=== PATIENT | female | born 1960 | race Asian ===

== ENCOUNTER 2018-10-26 13:04 | Emergency (ER) | payer OTHER, SELFPAY ==
[2018-10-26 13:10] VITALS: BP 146/86; PULSE 72; RESP 19; TEMP 36.2; O2SAT 97; BMI 28.2
--- NOTE | 2018-10-26 13:18 | ED.CHESTPAIN ---
HPI - Chest Pain <BRAD Dave - Last Filed: 10/26/18 21:19> General Chief Complaint: Chest Pain Stated Complaint: CHEST HEAVINESS,ASTHMA Time Seen by Provider: 10/26/18 13:08 Source: patient Mode of arrival: ambulatory Limitations: no limitations History of Present Illness HPI narrative: 58-year-old female with history of asthma that is a nonsmoker here for complaint of having increased wheeziness and chest pressure over the past week. She says that she has had a cough and cold-like symptoms over the past week. She has been using her albuterol and Advair as directed. She has been using nebulizer treatments at home as well to treat her symptoms. She denies any chest pain. No nausea vomiting. No fevers. She denies any other concerns or complaints. She is ambulatory into the emergency room. complaint: other Related Data Home Medications Medication Instructions Recorded Confirmed losartan 100 mg PO DAILY #0 10/27/17 10/26/18 albuterol sulfate [ProAir HFA] 1 puff INHALATION PRN PRN 10/26/18 10/26/18 chlorthalidone 25 mg PO DAILY 10/26/18 10/26/18 fluticasone 1 spray INTRANASAL PRN PRN 10/26/18 10/26/18 fluticasone-salmeterol [Advair 1 puff INHALATION BID 10/26/18 10/26/18 Diskus] montelukast 10 mg PO DAILY 10/26/18 10/26/18 Previous Rx's Medication Instructions Recorded albuterol sulfate 3 ml INH Q6HP PRN #25 ea 02/11/18 prednisone 40 mg PO DAILY #8 tab 10/26/18 Allergies Allergy/AdvReac Type Severity Reaction Status Date / Time aspirin [ASPIRIN] Allergy Unknown MAKES HER Verified 10/26/18 13:20 BLEED NSAIDS (Non-Steroidal Allergy Unknown Verified 10/26/18 13:20 Anti-Inflamma [NSAIDS (NON-STEROIDAL ANTI-INFLAMMA] Review of Systems <BRAD Dave - Last Filed: 10/26/18 21:19> Constitutional Denies chills, Denies fever(s), Denies lethargy and Denies weakness Eyes Denies change in vision, Denies eye discharge, Denies irritation and Denies loss of vision ENT Ears, Nose, Mouth, and Throat: Reports nasal discharge and Denies throat swelling Cardiovascular Denies chest pain, Denies irregular heart rhythm, Denies lightheadedness, Denies palpitations and Denies orthopnea Comments: Chest pressure Respiratory Reports cough and Denies wheezing Gastrointestinal Gastrointestinal: Denies abdominal pain, Denies change in bowel habits, Denies diarrhea, Denies nausea and Denies vomiting Genitourinary Denies hematuria, Denies flank pain, Denies urinary incontinence and Denies urinary urgency Musculoskeletal Denies back pain, Denies muscle weakness, Denies numbness and Denies tingling Integumentary/Breasts Denies pruritus, Denies erythema, Denies rash and Denies wounds Neurologic Denies confusion, Denies loss of vision, Denies numbness, Denies tingling and Denies weakness Psychiatric Denies anxiety, Denies confusion, Denies depression, Denies homicidal ideation and Denies suicidal ideation Endocrine Denies palpitations Hematologic/Lymphatic Denies easy bruising Allergic/Immunologic Denies urticaria, Denies throat swelling and Denies wheezing Exam <BRAD Dave - Last Filed: 10/26/18 21:19> Initial Vital Signs Initial Vital Signs: Vital Signs Temperature 97.2 F L 10/26/18 13:10 Pulse Rate 72 10/26/18 13:10 Respiratory Rate 19 10/26/18 13:10 Blood Pressure 146/86 H 10/26/18 13:10 Pulse Oximetry 97 10/26/18 13:10 Const General: cooperative and well developed Nutritional Appearance: well nourished Orientation: alert, awake, oriented x3 and not confused HENME Mouth: oral mucosae normal and moist mucous membranes Eyes Conjunctivae: conjunctivae normal Sclera: sclerae normal Pupils: PERRL EOM: EOM intact bilaterally Resp Effort & Inspection: normal respiratory effort, able to speak in complete sentences, no respiratory distress and no use of accessory muscles Auscultation: no rales, no rhonchi and wheezes upper bilaterally Cardio Rate: regular rate Rhythm: regular rhythm Heart Sounds: no click, no gallops, no murmurs and no rubs Pulses: normal peripheral pulses Skin General: no rashes or lesions noted, No jaundice and No petechiae Neuro General: alert, oriented x3, gait normal and no focal motor deficits Speech: speech normal <Stephanie Martin DO - Last Filed: 10/29/18 07:26> Initial Vital Signs Initial Vital Signs: Vital Signs Temperature 97.2 F L 10/26/18 13:10 Pulse Rate 72 10/26/18 13:10 Respiratory Rate 19 10/26/18 13:10 Blood Pressure 146/86 H 10/26/18 13:10 Pulse Oximetry 97 10/26/18 13:10 Course <BRAD Dave - Last Filed: 10/26/18 21:19> Orders Ordered: Discontinued Medications Albuterol/Ipratropium (Duoneb) 3 ml INH NOW ONE Stop: 10/26/18 13:23 Last Admin: 10/26/18 13:24 Dose: 3 ml Dexamethasone (Decadron) 10 mg IV NOW ONE Stop: 10/26/18 13:21 Last Admin: 10/26/18 14:16 Dose: 10 mg Vital Signs - 8 hr 10/26/18 13:20 10/26/18 13:49 10/26/18 14:00 Pulse Rate 70 72 66 Respiratory Rate 20 17 14 Blood Pressure [Left Arm] 143/66 H 113/64 Pulse Oximetry 97 95 98 10/26/18 14:30 10/26/18 15:03 Pulse Rate 69 65 Respiratory Rate 20 15 Blood Pressure [Left Arm] 113/64 119/67 Pulse Oximetry 97 98 <Stephanie Martin DO - Last Filed: 10/29/18 07:26> Orders Ordered: Discontinued Medications Albuterol/Ipratropium (Duoneb) 3 ml INH NOW ONE Stop: 10/26/18 13:23 Last Admin: 10/26/18 13:24 Dose: 3 ml Dexamethasone (Decadron) 10 mg IV NOW ONE Stop: 10/26/18 13:21 Last Admin: 10/26/18 14:16 Dose: 10 mg Vital Signs - 8 hr 10/26/18 13:20 10/26/18 13:49 10/26/18 14:00 Pulse Rate 70 72 66 Respiratory Rate 20 17 14 Blood Pressure [Left Arm] 143/66 H 113/64 Pulse Oximetry 97 95 98 10/26/18 14:30 10/26/18 15:03 Pulse Rate 69 65 Respiratory Rate 20 15 Blood Pressure [Left Arm] 113/64 119/67 Pulse Oximetry 97 98 MDM - Chest Pain <BRAD Dave - Last Filed: 10/26/18 21:19> Lab Data Result diagrams: 10/26/18 14:00 10/26/18 14:00 Lab Results 10/26/18 10/26/18 Range/Units 14:00 14:00 WBC 10.4 (4.5-11.0) X10^3/uL RBC 4.90 (4.0-5.2) X10^6/uL Hgb 13.8 (12.0-16.0) g/dL Hct 40.3 (36-46) % MCV 82.4 (80-100) fL MCH 28.2 (26-34) PG MCHC 34.2 (30-36) % RDW 13.5 (11.6-14.8) % Plt Count 285 (150-400) X10^3/uL Neut % (Auto) 58.9 (50-75) % Lymph % (Auto) 28.0 (25-40) % Gilliam % (Auto) 5.2 (3-14) % Eos % (Auto) 7.1 H (2-4) % Baso % (Auto) 0.8 (0-2) % Neut # (Auto) 6100 (9495-4725) /uL Sodium 144 (137-145) mmol/L Potassium 3.1 L (3.4-5.1) mmol/L Chloride 102 (98-107) mmol/L Carbon Dioxide 26 (22-32) mmol/L BUN 16 (7-17) mg/dL Creatinine 0.70 (0.52-1.04) mg/dL Estimated GFR > 60.0 (>60) mL/min BUN/Creatinine Ratio 22.9 H (6-22) Glucose 89 (70-100) mg/dL Calcium 9.5 (8.4-10.2) mg/dL Total Bilirubin 0.4 (0.2-1.3) mg/dL AST 23 (14-36) IU/L ALT 17 (9-52) IU/L Alkaline Phosphatase 91 (38-126) U/L Total Creatine Kinase 59 (30-135) U/L CK-MB (CK-2) TNP CK-MB (CK-2) Rel Index TNP Troponin I < 0.012 (0.01-0.034) ng/mL Total Protein 8.2 (6.3-8.2) g/dL Albumin 4.5 (3.5-5.0) g/dL Globulin 3.7 (1.7-4.1) g/dL Albumin/Globulin Ratio 1.2 (1.0-2.8) Imaging Data Chest x-ray: Radiologist's impression: [address] [address] XRay Report Signed Patient: Jenni Vidales MR#: [id number] : 1960 Acct:[id number] Age/Sex: 58 / F Date of Service: 10/26/18 Loc: ED Accession Number: [id number] Procedure: XR chest 1V Ordering Provider: Kan Sal PROCEDURE: XR CHEST 1V INDICATIONS: Chest pressure and wheezing TECHNIQUE: One view of the chest was acquired. COMPARISON: [facility], CR, CHEST 1VW (PORTABLE), 06/28/2014, 13:17. [facility], CR, CHEST 2 VIEW, 02/11/2018, 9:26. [facility], CR, CHEST 2 VIEW, 10/27/2017, 14:26. FINDINGS: Surgical changes and devices: None. Lungs and pleura: No pleural effusions or pneumothorax. Lungs are clear except for a small old calcified granuloma lateral right midlung present on prior chest plain films including from 2013. Mediastinum: Mediastinal contours appear normal. Heart size is normal. Bones and chest wall: No suspicious bony lesions. Overlying soft tissues appear unremarkable. IMPRESSION: Mildly reduced inspiratory volume. Old granuloma again noted lateral right midlung. Dictated by: Scott Gallegos M.D. on 10/26/2018 at 13:47 Approved by: Scott Gallegos M.D. on 10/26/2018 at 13:48 ECG Data Interpretation: EKG shows normal sinus rhythm with no ST elevation or depression. No ectopy. Ventricular rate is 70. Pr interval 169. QRS duration 107. QTC of 453. MDM Narrative Medical decision making narrative: CBC Chem panel were obtained were unremarkable. Cardiac enzymes were obtained and were negative. Chest x-ray was negative for any acute findings. She was given a DuoNeb treatment in the emergency room and some Decadron which helped her symptoms. Signs and symptoms presents as asthma exacerbation secondary to viral upper respiratory infection. She is placed on a short course of prednisone to help with inflammation. Follow up with primary care provider. Asthma medications as directed. For any worsening symptoms return to the emergency room. <Stephanie MartinDO - Last Filed: 10/29/18 07:26> Lab Data Lab Results 10/26/18 10/26/18 Range/Units 14:00 14:00 WBC 10.4 (4.5-11.0) X10^3/uL RBC 4.90 (4.0-5.2) X10^6/uL Hgb 13.8 (12.0-16.0) g/dL Hct 40.3 (36-46) % MCV 82.4 (80-100) fL MCH 28.2 (26-34) PG MCHC 34.2 (30-36) % RDW 13.5 (11.6-14.8) % Plt Count 285 (150-400) X10^3/uL Neut % (Auto) 58.9 (50-75) % Lymph % (Auto) 28.0 (25-40) % Gilliam % (Auto) 5.2 (3-14) % Eos % (Auto) 7.1 H (2-4) % Baso % (Auto) 0.8 (0-2) % Neut # (Auto) 6100 (6882-7785) /uL Sodium 144 (137-145) mmol/L Potassium 3.1 L (3.4-5.1) mmol/L Chloride 102 (98-107) mmol/L Carbon Dioxide 26 (22-32) mmol/L BUN 16 (7-17) mg/dL Creatinine 0.70 (0.52-1.04) mg/dL Estimated GFR > 60.0 (>60) mL/min BUN/Creatinine Ratio 22.9 H (6-22) Glucose 89 (70-100) mg/dL Calcium 9.5 (8.4-10.2) mg/dL Total Bilirubin 0.4 (0.2-1.3) mg/dL AST 23 (14-36) IU/L ALT 17 (9-52) IU/L Alkaline Phosphatase 91 (38-126) U/L Total Creatine Kinase 59 (30-135) U/L CK-MB (CK-2) TNP CK-MB (CK-2) Rel Index TNP Troponin I < 0.012 (0.01-0.034) ng/mL Total Protein 8.2 (6.3-8.2) g/dL Albumin 4.5 (3.5-5.0) g/dL Globulin 3.7 (1.7-4.1) g/dL Albumin/Globulin Ratio 1.2 (1.0-2.8) Discharge Plan Departure Patient Disposition: Home Clinical Impression: Asthma exacerbation Discharge Date/Time: 10/26/18 15:27 Interventions: ED Discharge Assessment Last Done: 10/26/18 15:27 Instructions: DI for Asthma -- Adult Activity Restrictions/Additional Instructions: Laboratory results chest x-ray and EKG today were unremarkable. Signs and symptoms presents as asthma exacerbation secondary to viral upper respiratory infection. Plenty of fluids and rest. Asthma medications as prescribed. You are placed on a short course of prednisone a steroid to help with inflammation use as directed. For any worsening symptoms return emergency room. Follow up with primary care provider in the next couple days for re-evaluation. Prescriptions: New prednisone 20 mg tablet 40 mg PO DAILY Qty: 8 RF: 0 No Action losartan 100 MG tablet 100 mg PO DAILY Qty: 0 RF: 0 albuterol sulfate 2.5 MG/3 ML solution for nebulization 3 ml INH Q6HP PRNQty: 25 RF: 0 chlorthalidone 25 mg tablet 25 mg PO DAILY RF: 0 fluticasone 50 mcg/actuation spray,suspension 1 spray Intranasal PRN PRN (Reason: Allergy Symptoms) RF: 0 fluticasone-salmeterol [Advair Diskus] 500-50 mcg/dose blister with device 1 puff Inhalation BID RF: 0 montelukast 10 mg tablet 10 mg PO DAILY RF: 0 albuterol sulfate [ProAir HFA] 90 mcg/actuation HFA aerosol inhaler 1 puff Inhalation PRN PRN (Reason: Shortness Of Breath) RF: 0 Referrals: Glendy Armando MD [Primary Care Provider] - <Stephanie Martin DO - Last Filed: 10/29/18 07:26> Cosign ED Attending Guilleature Attestation: I was immediately available in the department for consultation. This documentation has been reviewed and I agree with assessment and plan. Supervised by Stephanie Martin DO
[2018-10-26 13:20] VITALS: PULSE 70; RESP 20; O2SAT 97
[2018-10-26] MEDS: ALBUTEROL/IPRATROPIUM 3 ML AMPUL INH (13:24)
[2018-10-26 13:49] VITALS: BP 143/66; PULSE 72; RESP 17; O2SAT 95
[2018-10-26 14:00] VITALS: BP 113/64; PULSE 66; RESP 14; O2SAT 98
[2018-10-26 14:10] LABS: Add Manual Diff / Slide Review NO; Basophils Percent Auto 0.8 % (0-2); Eosinophils Percent Auto 7.1 % (2-4); Hematocrit 40.3 % (36-46); Hemoglobin 13.8 g/dL (12.0-16.0); Mean Corpuscular HGB Conc 34.2 % (30-36); Mean Corpuscular Hemoglobin 28.2 PG (26-34); Mean Corpuscular Volume 82.4 fL (80-100); Monocytes Percent Auto 5.2 % (3-14); Neutrophils Absolute Auto 6100 /uL (1500-7000); Neutrophils Percent Auto 58.9 % (50-75); Platelet Count 285 X10^3/uL (150-400); Red Cell Distribution Width 13.5 % (11.6-14.8); White Blood Cell Count 10.4 X10^3/uL (4.5-11.0)
[2018-10-26] MEDS: DEXAMETHASONE 10 MG/ML VIAL IV (14:16)
[2018-10-26 14:22] LABS: Alanine Aminotransferase 17 IU/L (9-52); Albumin 4.5 g/dL (3.5-5.0); Albumin Globulin Ratio 1.2 (1.0-2.8); Alkaline Phosphatase 91 U/L (38-126); Aspartate Aminotransferase 23 IU/L (14-36); BUN Creatinine Ratio 22.9 (6-22); Bilirubin Total 0.4 mg/dL (0.2-1.3); Blood Urea Nitrogen 16 mg/dL (7-17); Calcium 9.5 mg/dL (8.4-10.2); Carbon Dioxide 26 mmol/L (22-32); Chloride 102 mmol/L (98-107); Creatine Kinase 59 U/L (30-135); Estimated Glomerular Filt Rate > 60.0 mL/min (>60); Globulin 3.7 g/dL (1.7-4.1); Glucose 89 mg/dL (70-100); HEMOLYSIS < 15 (0-50); Potassium 3.1 mmol/L (3.4-5.1); Sodium 144 mmol/L (137-145); Total Protein 8.2 g/dL (6.3-8.2)
[2018-10-26 14:30] VITALS: BP 113/64; PULSE 69; RESP 20; O2SAT 97
[2018-10-26 14:34] LABS: Troponin I < 0.012 ng/mL (0.01-0.034)
[2018-10-26 15:03] VITALS: BP 119/67; PULSE 65; RESP 15; O2SAT 98
== END 2018-10-26 15:27 | disposition home or self-care (01) ==
PROVIDERS: Emergency Provider Nurse Practitioner Family; Family Provider Internal Medicine; PCP Internal Medicine
DX: J45.901 Unspecified asthma with (acute) exacerbation (principal)
CPT/HCPCS: 36591; 71045; 80053; 82550; 84484; 85025; 93005; 94150; 94640; 96374; 99283; 99285; J1100

== ENCOUNTER 2019-01-15 09:33 | Emergency (ER) | payer OTHER, SELFPAY ==
[2019-01-15 09:44] VITALS: BP 110/63; PULSE 71; RESP 16; TEMP 36.5; O2SAT 96; BMI 25.2
[2019-01-15] MEDS: ALBUTEROL/IPRATROPIUM 3 ML AMPUL INH (09:45)
[2019-01-15 09:46] VITALS: PULSE 66; RESP 14; O2SAT 97
--- NOTE | 2019-01-15 09:46 | DI.RAD.S_ITS ---
PROCEDURE: XR CHEST 2V INDICATIONS: cough, sob TECHNIQUE: 2 views of the chest were acquired. COMPARISON: [facility], CR, XR CHEST 1V, 10/26/2018, 13:54. FINDINGS: Surgical changes and devices: None. Lungs and pleura: Calcified granuloma within the right midlung. Lungs are otherwise clear. No pleural effusions or pneumothorax. Mediastinum: Mediastinal contours are normal. Heart size is normal. Bones and chest wall: No suspicious bony abnormalities. Soft tissues appear unremarkable. IMPRESSION: No acute process. Dictated by: Brandie Grady M.D. on 01/15/2019 at 10:27 Approved by: Brandie Grady M.D. on 01/15/2019 at 10:27
[2019-01-15 10:39] LABS: Influenza A and B by PCR Rapid Negative (Negative)
--- NOTE | 2019-01-15 10:42 | ED.URI ---
HPI - URI/Sore Throat General Chief Complaint: Upper Respiratory Symptoms Stated Complaint: COUGHING 102 TEMP Time Seen by Provider: 01/15/19 09:45 Source: patient and family Mode of arrival: ambulatory Limitations: no limitations History of Present Illness HPI Narrative: 59-year-old female nonsmoker with history of asthma presents with a chief complaint of 1 week of fever of 102 with coughing and shortness of breath. She is not dizzy nor weak or lightheaded. She denies any nausea, vomiting or diarrhea. She denies runny nose, sore throat. She has been using her albuterol at home but with minimal relief. MD Complaint: fever and cough Onset (ago): day(s) Duration: constant Severity: moderate Relieving factors: nothing Exacerbating factors: nothing Description of mucous: clear Able to tolerate fluids by mouth: Yes Associated symptoms: fever Related Data Home Medications Medication Instructions Recorded Confirmed losartan 100 mg PO DAILY #0 10/27/17 01/15/19 albuterol sulfate [ProAir HFA] 1 puff INHALATION PRN PRN 10/26/18 10/26/18 chlorthalidone 25 mg PO DAILY 10/26/18 01/15/19 fluticasone propion-salmeterol 1 puff INHALATION BID 10/26/18 10/26/18 [Advair Diskus] fluticasone propionate 1 spray INTRANASAL PRN PRN 10/26/18 10/26/18 montelukast 10 mg PO DAILY 10/26/18 10/26/18 Previous Rx's Medication Instructions Recorded albuterol sulfate 3 ml INH Q6HP PRN #25 ea 02/11/18 prednisone 40 mg PO DAILY #8 tab 10/26/18 doxycycline monohydrate 100 mg PO BID 10 Days #20 cap 01/15/19 prednisone 20 mg PO DAILY #5 tab 01/15/19 Allergies Allergy/AdvReac Type Severity Reaction Status Date / Time aspirin [ASPIRIN] Allergy Unknown MAKES HER Verified 01/15/19 09:44 BLEED NSAIDS (Non-Steroidal Allergy Unknown Verified 01/15/19 09:44 Anti-Inflamma [NSAIDS (NON-STEROIDAL ANTI-INFLAMMA] Review of Systems Constitutional Denies chills, Reports fever(s), Denies lethargy and Denies weakness Eyes Denies change in vision, Denies eye discharge, Denies irritation and Denies loss of vision ENT Ears, Nose, Mouth, and Throat: Denies change in voice, Denies neck pain and Denies sore throat Cardiovascular Denies chest pain, Denies irregular heart rhythm, Denies lightheadedness, Denies palpitations, Reports dyspnea, Denies dyspnea on exertion and Denies orthopnea Respiratory Reports cough, Reports dyspnea, Denies dyspnea on exertion and Denies wheezing Gastrointestinal Gastrointestinal: Denies abdominal pain, Denies change in bowel habits, Denies diarrhea, Denies nausea and Denies vomiting Genitourinary Denies hematuria, Denies flank pain, Denies urinary incontinence and Denies urinary urgency Musculoskeletal Denies neck pain Integumentary/Breasts Denies pruritus, Denies erythema, Denies rash and Denies wounds Neurologic Denies confusion, Denies loss of vision and Denies weakness Psychiatric Denies anxiety, Denies confusion, Denies depression, Denies homicidal ideation and Denies suicidal ideation Endocrine Denies palpitations Hematologic/Lymphatic Denies easy bruising Allergic/Immunologic Denies wheezing PFSH Social History Smoking Status: Never smoker Social History Smoking Status: Never smoker Exam Narrative Exam Narrative: GENERAL: 59-year-old female appears stated age, in mild distress, no significant respiratory work or use of accessory muscles HEAD: Atraumatic. Normocephalic. No temporal or scalp tenderness. EYES: Pupils equal round and reactive. Extraocular motions intact. No scleral icterus. No injection or drainage. ENT: Nose without bleeding, purulent drainage or septal hematoma. Throat without erythema, tonsillar hypertrophy or exudate. Uvula midline. Airway patent. NECK: Trachea midline. No JVD or lymphadenopathy. Supple, nontender, no meningeal signs. CARDIOVASCULAR: Regular rate and rhythm without murmurs, gallops, or rubs. RESPIRATORY: Very mild bibasilar wheeze. No rhonchi or rales. GASTROINTESTINAL: Abdomen soft, non-tender, nondistended. No hepato-splenomegaly, or palpable masses. No guarding. EXTREMITIES: No clubbing, cyanosis, or edema. No joint tenderness, effusion, or edema noted. BACK: Nontender without deformity or crepitance. No flank tenderness. NEURO: AOx3. SKIN: No rash or erythema. Initial Vital Signs Initial Vital Signs: Vital Signs Temperature 97.7 F 01/15/19 09:44 Pulse Rate 71 01/15/19 09:44 Respiratory Rate 16 01/15/19 09:44 Blood Pressure 110/63 01/15/19 09:44 Pulse Oximetry 96 01/15/19 09:44 Course Orders Ordered: Discontinued Medications Albuterol/Ipratropium (Duoneb) 3 ml INH NOW ONE Stop: 01/15/19 09:45 Last Admin: 01/15/19 09:45 Dose: 3 ml Reevaluation(s) Reevaluation #1: patient feels much better after the 1st L and some bronchodilators. We elect to give a 2nd L of fluid given her description of dehydration type symptoms. Vital Signs - 8 hr 01/15/19 09:44 01/15/19 09:46 Temperature 97.7 F Pulse Rate 71 66 Respiratory Rate 16 14 Blood Pressure 110/63 Pulse Oximetry 96 97 [facility] - URI/Sore Throat Lab Data Attestation: I reviewed the patient's lab results. Lab Results 01/15/19 Range/Units 09:40 Influenza A & B (PCR) Negative (Negative) Imaging Data Chest x-ray: Radiologist's impression: [address] [address] XRay Report Signed Patient: Jenni Vidales EMR#: [id number] : 2Acct:[id number] Age/Sex: 59 / FDate of Service: 01/15/19 Loc: ED Accession Number: [id number] Procedure: XR chest 2V Ordering Provider: Kulwinder Camp D.O. PROCEDURE: XR CHEST 2V INDICATIONS: cough, sob TECHNIQUE: 2 views of the chest were acquired. COMPARISON: [facility], CR, XR CHEST 1V, 10/26/2018, 13:54. FINDINGS: Surgical changes and devices: None. Lungs and pleura: Calcified granuloma within the right midlung. Lungs are otherwise clear. No pleural effusions or pneumothorax. Mediastinum: Mediastinal contours are normal. Heart size is normal. Bones and chest wall: No suspicious bony abnormalities. Soft tissues appear unremarkable. IMPRESSION: No acute process. Dictated by: Brandie Grady M.D. on 01/15/2019 at 10:27 MDM Narrative Medical decision making narrative: 59-year-old nonsmoking asthma patient presents with a week of fever and cough. Flu is negative and chest x-ray is clear. Patient has a very reassuring exam and essentially normal vital signs. Influenza a, flu, asthma exacerbation, viral upper respiratory infection and atypical pneumonia all considered in the differential Discharge Plan Departure Patient Disposition: Home Clinical Impression: Atypical pneumonia Asthma exacerbation Qualifiers: Asthma severity: moderate Asthma persistence: unspecified Qualified Code(s): J45.901 - Unspecified asthma with (acute) exacerbation Discharge Date/Time: 01/15/19 11:05 Interventions: ED Discharge Assessment Last Done: 01/15/19 11:04 Instructions: DI for Atypical Pneumonia Activity Restrictions/Additional Instructions: *You have been diagnosed with [ atypical pneumonia, exacerbation of asthma ] *What to do: *Take medications as directed *Follow up with your primary care provider in 2-3 days, call for an appointment. Let them know you were seen in the Emergency Department and that we ask that you be seen in follow up *Return to ER if you should have any new, worsening or concerning symptoms, such as [ ] Prescriptions: New prednisone 20 mg tablet 20 mg PO DAILY Qty: 5 RF: 0 doxycycline monohydrate 100 mg capsule 100 mg PO BID 10 Days Qty: 20 RF: 0 No Action losartan 100 MG tablet 100 mg PO DAILY Qty: 0 RF: 0 albuterol sulfate 2.5 MG/3 ML solution for nebulization 3 ml INH Q6HP PRNQty: 25 RF: 0 chlorthalidone 25 mg tablet 25 mg PO DAILY RF: 0 fluticasone propionate 50 mcg/actuation spray,suspension 1 spray Intranasal PRN PRN (Reason: Allergy Symptoms) RF: 0 fluticasone propion-salmeterol [Advair Diskus] 500-50 mcg/dose blister with device 1 puff Inhalation BID RF: 0 montelukast 10 mg tablet 10 mg PO DAILY RF: 0 albuterol sulfate [ProAir HFA] 90 mcg/actuation HFA aerosol inhaler 1 puff Inhalation PRN PRN (Reason: Shortness Of Breath) RF: 0 prednisone 20 mg tablet 40 mg PO DAILY Qty: 8 RF: 0 Referrals: Glendy Armando MD [Primary Care Provider] -
--- NOTE | 2019-01-15 10:46 | ED_ITS ---
HPI - URI/Sore Throat General Chief Complaint: Upper Respiratory Symptoms Stated Complaint: COUGHING 102 TEMP Time Seen by Provider: 01/15/19 09:45 Source: patient and family Mode of arrival: ambulatory Limitations: no limitations History of Present Illness HPI Narrative: 59-year-old female nonsmoker with history of asthma presents with a chief complaint of 1 week of fever of 102 with coughing and shortness of noah ath. She is not dizzy nor weak or lightheaded. She denies any nausea, vomiting or diarrhea. She denies runny nose, sore throat. She has been using her albuterol at home but with minimal relief. MD Complaint: fever and cough Onset (ago): day(s) Duration: constant Severity: moderate Relieving factors: nothing Exacerbating factors: nothing Description of mucous: clear Able to tolerate fluids by mouth: Yes Associated symptoms: fever Related Data Home Medications Medication Instructions Recorded Confirmed losartan 100 mg PO DAILY #0 10/27/17 01/15/19 albuterol sulfate [ProAir HFA] 1 puff INHALATION PRN PRN 10/26/18 10/26/18 chlorthalidone 25 mg PO DAILY 10/26/18 01/15/19 fluticasone propion-salmeterol 1 puff INHALATION BID 10/26/18 10/26/18 [Advair Diskus] fluticasone propionate 1 spray INTRANASAL PRN PRN 10/26/18 10/26/18 montelukast 10 mg PO DAILY 10/26/18 10/26/18 Previous Rx's Medication Instructions Recorded albuterol sulfate 3 ml INH Q6HP PRN #25 ea 02/11/18 prednisone 40 mg PO DAILY #8 tab 10/26/18 doxycycline monohydrate 100 mg PO BID 10 Days #20 cap 01/15/19 prednisone 20 mg PO DAILY #5 tab 01/15/19 Allergies Allergy/AdvReac Type Severity Reaction Status Date / Time aspirin [ASPIRIN] Allergy Unknown MAKES HER Verified 01/15/19 09:44 BLEED NSAIDS (Non-Steroidal Allergy Unknown Verified 01/15/19 09:44 Anti-Inflamma [NSAIDS (NON-STEROIDAL ANTI-INFLAMMA] Review of Systems Constitutional Denies chills, Reports fever(s), Denies lethargy and Denies weakness Eyes Denies change in vision, Denies eye discharge, Denies irritation and Denies loss of vision ENT Ears, Nose, Mouth, and Throat: Denies change in voice, Denies neck pain and Denies sore throat Cardiovascular Denies chest pain, Denies irregular heart rhythm, Denies lightheadedness, Denies palpitations, Reports dyspnea, Denies dyspnea on exertion and Denies orthopnea Respiratory Reports cough, Reports dyspnea, Denies dyspnea on exertion and Denies wheezing Gastrointestinal Gastrointestinal: Denies abdominal pain, Denies change in bowel habits, Denies diarrhea, Denies nausea and Denies vomiting Genitourinary Denies hematuria, Denies flank pain, Denies urinary incontinence and Denies urinary urgency Musculoskeletal Denies neck pain Integumentary/Breasts Denies pruritus, Denies erythema, Denies rash and Denies wounds Neurologic Denies confusion, Denies loss of vision and Denies weakness Psychiatric Denies anxiety, Denies confusion, Denies depression, Denies homicidal ideation and Denies suicidal ideation Endocrine Denies palpitations Hematologic/Lymphatic Denies easy bruising Allergic/Immunologic Denies wheezing PFSH Social History Smoking Status: Never smoker Social History Smoking Status: Never smoker Exam Narrative Exam Narrative: GENERAL: 59-year-old female appears stated age, in mild distress, no significant respiratory work or use of accessory muscles HEAD: Atraumatic. Normocephalic. No temporal or scalp tenderness. EYES: Pupils equal round and reactive. Extraocular motions intact. No scleral icterus. No injection or drainage. ENT: Nose without bleeding, purulent drainage or septal hematoma. Throat without erythema, tonsillar hypertrophy or exudate. Uvula midline. Airway patent. NECK: Trachea midline. No JVD or lymphadenopathy. Supple, nontender, no meningeal signs. CARDIOVASCULAR: Regular rate and rhythm without murmurs, gallops, or rubs. RESPIRATORY: Very mild bibasilar wheeze. No rhonchi or rales. GASTROINTESTINAL: Abdomen soft, non-tender, nondistended. No hepato- splenomegaly, or palpable masses. No guarding. EXTREMITIES: No clubbing, cyanosis, or edema. No joint tenderness, effusion, or edema noted. BACK: Nontender without deformity or crepitance. No flank tenderness. NEURO: AOx3. SKIN: No rash or erythema. Initial Vital Signs Initial Vital Signs: Vital Signs Temperature 97.7 F 01/15/19 09:44 Pulse Rate 71 01/15/19 09:44 Respiratory Rate 16 01/15/19 09:44 Blood Pressure 110/63 01/15/19 09:44 Pulse Oximetry 96 01/15/19 09:44 Course Orders Ordered: Discontinued Medications Albuterol/Ipratropium (Duoneb) 3 ml INH NOW ONE Stop: 01/15/19 09:45 Last Admin: 01/15/19 09:45 Dose: 3 ml Reevaluation(s) Reevaluation #1: patient feels much better after the 1st L and some bronchodilators. We elect to give a 2nd L of fluid given her description of dehydration type symptoms. Vital Signs - 8 hr 01/15/19 09:44 01/15/19 09:46 Temperature 97.7 F Pulse Rate 71 66 Respiratory Rate 16 14 Blood Pressure 110/63 Pulse Oximetry 96 97 [facility] - URI/Sore Throat Lab Data Attestation: I reviewed the patient's lab results. Lab Results 01/15/19 Range/Units 09:40 Influenza A & B (PCR) Negative (Negative) Imaging Data Chest x-ray: Radiologist's impression: [address] [address] XRay Report Signed Patient: Jenni Vidales EMR#: [id number] : 2Acct:[id number] Age/Sex: 59 / FDate of Service: 01/15/19 Loc: ED Accession Number: [id number] Procedure: XR chest 2V Ordering Provider: Kulwinder Camp D.O. PROCEDURE: XR CHEST 2V INDICATIONS: cough, sob TECHNIQUE: 2 views of the chest were acquired. COMPARISON: [facility], CR, XR CHEST 1V, 10/26/2018, 13:54. FINDINGS: Surgical changes and devices: None. Lungs and pleura: Calcified granuloma within the right midlung. Lungs are otherwise clear. No pleural effusions or pneumothorax. Mediastinum: Mediastinal contours are normal. Heart size is normal. Bones and chest wall: No suspicious bony abnormalities. Soft tissues appear unremarkable. IMPRESSION: No acute process. Dictated by: Brandie Grady M.D. on 01/15/2019 at 10:27 MDM Narrative Medical decision making narrative: 59-year-old nonsmoking asthma patient presents with a week of fever and cough. Flu is negative and chest x-ray is clear. Patient has a very reassuring exam and essentially normal vital signs. Influenza a, flu, asthma exacerbation, viral upper respiratory infection and atypical pneumonia all considered in the differential Discharge Plan Departure Patient Disposition: Home Clinical Impression: Atypical pneumonia Asthma exacerbation Qualifiers: Asthma severity: moderate Asthma persistence: unspecified Qualified Code(s): J45.901 - Unspecified asthma with (acute) exacerbation Discharge Date/Time: 01/15/19 11:05 Interventions: ED Discharge Assessment Last Done: 01/15/19 11:04 Instructions: DI for Atypical Pneumonia Activity Restrictions/Additional Instructions: *You have been diagnosed with [ atypical pneumonia, exacerbation of asthma ] *What to do: *Take medications as directed *Follow up with your primary care provider in 2-3 days, call for an appointment. Let them know you were seen in the Emergency Department and that we ask that you be seen in follow up *Return to ER if you should have any new, worsening or concerning symptoms, such as [ ] Prescriptions: New prednisone 20 mg tablet 20 mg PO DAILY Qty: 5 RF: 0 doxycycline monohydrate 100 mg capsule 100 mg PO BID 10 Days Qty: 20 RF: 0 No Action losartan 100 MG tablet 100 mg PO DAILY Qty: 0 RF: 0 albuterol sulfate 2.5 MG/3 ML solution for nebulization 3 ml INH Q6HP PRNQty: 25 RF: 0 chlorthalidone 25 mg tablet 25 mg PO DAILY RF: 0 fluticasone propionate 50 mcg/actuation spray,suspension 1 spray Intranasal PRN PRN (Reason: Allergy Symptoms) RF: 0 fluticasone propion-salmeterol [Advair Diskus] 500-50 mcg/dose blister with device 1 puff Inhalation BID RF: 0 montelukast 10 mg tablet 10 mg PO DAILY RF: 0 albuterol sulfate [ProAir HFA] 90 mcg/actuation HFA aerosol inhaler 1 puff Inhalation PRN PRN (Reason: Shortness Of Breath) RF: 0 prednisone 20 mg tablet 40 mg PO DAILY Qty: 8 RF: 0 Referrals: Glendy Armando MD [Primary Care Provider] -
[2019-01-15 11:04] VITALS: BP 100/70; PULSE 73; RESP 14; O2SAT 94
== END 2019-01-15 11:05 | disposition home or self-care (01) ==
PROVIDERS: Emergency Provider Emergency Medicine; Family Provider Internal Medicine; PCP Internal Medicine
DX: J45.901 Unspecified asthma with (acute) exacerbation (principal)
CPT/HCPCS: 71046; 87400; 94640; 99283

== ENCOUNTER 2019-08-10 10:14 | Emergency (ER) | payer OTHER, SELFPAY ==
[2019-08-10 10:20] VITALS: BP 150/98; PULSE 77; RESP 14; TEMP 36.2; O2SAT 98
--- NOTE | 2019-08-10 10:55 | ED.GENADULT ---
HPI - General Adult General Chief complaint: Dizziness Stated complaint: headache/dizzy x2 days Time Seen by Provider: 08/10/19 10:51 Source: patient Mode of arrival: Ambulatory Limitations: no limitations History of Present Illness HPI narrative: 59-year-old female who is here for evaluation of headache, dizziness, back pain, nausea and vomiting. She states that all her symptoms started approximately 2 days ago. She has had the symptoms in the past. She states that her symptoms have been going on since 2005 when she fell in the shower hitting the back of her head. Since then she has had a ?bump? on the back of her head. She occasionally gets symptoms that brought her into the emergency department today. Sometimes they are better than other times. This particular episode is 1 of the bad times that she has symptoms. She states that the vision changes in the nausea and the vomiting the headache and back pain all stem from tenderness from this bump on the back of her head. She has seen her primary doctor about it. She does not remember any head CTs but has had ultrasounds in the past. Has not tried anything for symptoms prior to arrival. Related Data Home Medications Medication Instructions Recorded Confirmed losartan 100 mg PO DAILY #0 10/27/17 08/10/19 albuterol sulfate [ProAir HFA] 1 puff INHALATION PRN PRN 10/26/18 08/10/19 fluticasone propion-salmeterol 1 puff INHALATION BID 10/26/18 08/10/19 [Advair Diskus] montelukast 10 mg PO DAILY 10/26/18 08/10/19 Previous Rx's Medication Instructions Recorded albuterol sulfate 3 ml INH Q6HP PRN #25 ea 02/11/18 Allergies Allergy/AdvReac Type Severity Reaction Status Date / Time aspirin [ASPIRIN] Allergy Unknown MAKES HER Verified 08/10/19 10:26 BLEED Review of Systems Constitutional Constitutional: Denies fever(s) and Reports headache(s) Eyes Eyes: Reports blurry vision ENT Ears, Nose, Mouth, and Throat: Denies vertigo, Reports dizziness, Reports headache(s) and Denies disequilibrium Cardiovascular Cardiovascular: Denies chest pain and Denies dyspnea Respiratory Respiratory: Denies dyspnea Gastrointestinal Gastrointestinal: Denies abdominal pain, Reports nausea and Reports vomiting Musculoskeletal Musculoskeletal: Denies myalgias and Denies arthralgias Integumentary/Breasts Skin/Breast: Denies lesions and Denies rash Neurologic Neurologic: Denies behavioral changes, Denies vertigo, Reports dizziness, Reports headache(s) and Denies disequilibrium Psychiatric Psychiatric: Denies behavioral changes Hematologic/Lymphatic Hematologic/Lymphatic: Denies easy bleeding and Denies easy bruising Patient History Medical/Surgical History Medical History Asthma exacerbation (Inactive) Social History Smoking Status: Never smoker Family/Social History Social History Smoking Status: Never smoker alcohol intake frequency: holidays/special occasions only Substance Use Type: does not use Exam Initial Vital Signs Initial Vital Signs: Vital Signs Temperature 97.2 F L 08/10/19 10:20 Pulse Rate 77 08/10/19 10:20 Respiratory Rate 14 08/10/19 10:20 Blood Pressure 150/98 H 08/10/19 10:20 Pulse Oximetry 98 08/10/19 10:20 Const General: cooperative, healthy appearing, comfortable and well developed Orientation: alert, awake and oriented x3 HENMT Head: other (Small bump on the occipital area of the head) Resp Effort & Inspection: normal respiratory effort Auscultation: clear to auscultation bilaterally Cardio Rate: regular rate Rhythm: regular rhythm Skin Lesions: no lesions Rashes: no rashes Neuro General: alert and awake Cognition: normal cognition Speech: speech normal Extrem General: normal to inspection and capillary refill normal Psych Appearance: grossly normal and well kempt Course Orders Ordered: Discontinued Medications Hydrocodone Bitart/Acetaminophen ([place] 5/325) 1 tab PO NOW ONE Stop: 08/10/19 12:18 Last Admin: 08/10/19 12:22 Dose: 1 tab Documented by: DORA Ketorolac Tromethamine (Toradol) 30 mg IM NOW ONE Stop: 08/10/19 11:43 Last Admin: 08/10/19 12:22 Dose: 30 mg Documented by: DORA Lidocaine HCl (Xylocaine 1% (Pf)) 2 ml INJ NOW ONE Stop: 08/10/19 10:56 Last Admin: 08/10/19 11:06 Dose: 2 ml Documented by: CSIEDLE Vital Signs Vital signs: Vital Signs - 8 hr 08/10/19 10:20 08/10/19 11:42 Temperature 97.2 F L Pulse Rate 77 75 Respiratory Rate 14 16 Blood Pressure 150/98 H Blood Pressure [Right Arm] 137/95 H Pulse Oximetry 98 98 Medical Decision Making MDM Narrative Medical decision making narrative: Patient does seem to have pinpoint tenderness in the occipital area. I do feel a ?lump? in this area however do not feel like it is a lymph node. Patient states that has not changed since 2005. He did do a trigger point injection in this area which seemed to help her neck and back pain however she continued to have a headache. The Toradol continue to help her neck and back pain but was still having headache. The [place] resolved her symptoms. Will have her follow up with her primary doctor. Will hold on any further workup for now. Patient expressed understanding and agreement pain Discharge Plan Departure Patient Disposition: Home Clinical Impression: Headache Qualifiers: Headache type: unspecified Headache chronicity pattern: acute headache Intractability: not intractable Qualified Code(s): R51 - Headache Instructions: DI for Headache Activity Restrictions/Additional Instructions: Continue all of your medications as directed. Contact your primary provider for follow-up. Return to the emergency department for any new or worsening symptoms Prescriptions: No Action losartan 100 MG tablet 100 mg PO DAILY Qty: 0 RF: 0 albuterol sulfate 2.5 MG/3 ML solution for nebulization 3 ml INH Q6HP PRNQty: 25 RF: 0 fluticasone propion-salmeterol [Advair Diskus] 500-50 mcg/dose blister with device 1 puff Inhalation BID RF: 0 montelukast 10 mg tablet 10 mg PO DAILY RF: 0 albuterol sulfate [ProAir HFA] 90 mcg/actuation HFA aerosol inhaler 1 puff Inhalation PRN PRN (Reason: Shortness Of Breath) RF: 0 Referrals: Glendy Armando MD [Primary Care Provider] -
[2019-08-10] MEDS: LIDOCAINE 1% (PF) 2 ML INJ (11:06)
[2019-08-10 11:42] VITALS: BP 137/95; PULSE 75; RESP 16; O2SAT 98
[2019-08-10] MEDS: KETOROLAC 60 MG/2 ML VIAL 30 MG IM (12:22)
[2019-08-10] MEDS: HYDROCODONE/ACET 5/325 TABLET 1 TAB PO (12:22)
[2019-08-10 13:13] VITALS: BP 128/86; PULSE 75; RESP 16; O2SAT 97
== END 2019-08-10 13:14 | disposition home or self-care (01) ==
PROVIDERS: Emergency Provider Emergency Medicine; Family Provider Internal Medicine; PCP Internal Medicine
DX: R51 Headache (principal)
CPT/HCPCS: 96372; 99282; 99283; J1885

== ENCOUNTER 2019-08-28 13:10 | Emergency (ER) | payer OTHER, SELFPAY ==
[2019-08-28] VITALS (11 sets, daily range): BP systolic 75–106; BP diastolic 44–63; PULSE 61–72; RESP 14–20; TEMP 36.1–37.7; O2SAT 14–100
[2019-08-28 13:47] LABS: Add Manual Diff / Slide Review NO; Basophils Absolute Auto 100 /uL (0-100); Basophils Percent Auto 0.5 % (0-2); Eosinophils Absolute Auto 300 /uL (0-450); Eosinophils Percent Auto 2.3 % (2-4); Hematocrit 39.3 % (36-46); Hemoglobin 13.2 g/dL (12.0-16.0); Lymphocytes Absolute Auto 2400 /uL (1100-4500); Lymphocytes Percent Auto 19.3 % (25-40); Mean Corpuscular HGB Conc 33.7 % (30-36); Mean Corpuscular Volume 83.2 fL (80-100); Monocytes Absolute Auto 1100 /uL (0-900); Neutrophils Absolute Auto 8700 /uL (1500-7000); Neutrophils Percent Auto 68.9 % (50-75); Platelet Count 316 X10^3/uL (150-400); Red Blood Cell Count 4.72 X10^6/uL (4.0-5.2); Red Cell Distribution Width 13.5 % (11.6-14.8); White Blood Cell Count 12.6 X10^3/uL (4.5-11.0)
[2019-08-28 13:55] LABS: Prothrombin Time 11.6 SECONDS (10.1-12.7)
[2019-08-28] MEDS: PANTOPRAZOLE 40 MG VIAL 80 MG IV (13:56)
[2019-08-28] MEDS: ONDANSETRON 4 MG/2 ML INJ IV (13:56)
[2019-08-28 13:58] LABS: PTT Partial Thromboplastin Tim 32 SECONDS (26.4-36.2)
[2019-08-28 14:03] LABS: Alanine Aminotransferase 9 IU/L (9-52); Albumin 4.4 g/dL (3.5-5.0); Albumin Globulin Ratio 1.3 (1.0-2.8); Alkaline Phosphatase 89 U/L (38-126); Aspartate Aminotransferase 20 IU/L (14-36); BUN Creatinine Ratio 23.6 (6-22); Bilirubin Total 0.4 mg/dL (0.2-1.3); Blood Urea Nitrogen 52 mg/dL (7-17); Calcium 8.9 mg/dL (8.4-10.2); Carbon Dioxide 26 mmol/L (22-32); Chloride 97 mmol/L (98-107); Globulin 3.5 g/dL (1.7-4.1); Glucose 100 mg/dL (70-100); HEMOLYSIS < 15 (0-50); Potassium 3.1 mmol/L (3.4-5.1); Sodium 136 mmol/L (137-145); Total Protein 7.9 g/dL (6.3-8.2)
[2019-08-28] MEDS: SODIUM CHLORIDE 0.9% 1,000 ML 1000 ML IV ×2 (14:20→15:02)
--- NOTE | 2019-08-28 14:45 | ED.ABDPAIN ---
HPI - Abdominal Pain General Chief Complaint: Abdominal Pain Stated Complaint: bloody stools tummy hurting low BP Time Seen by Provider: 08/28/19 13:29 Source: patient and family Mode of arrival: Ambulatory Limitations: no limitations History of Present Illness HPI narrative: Patient comes emergency department complaining of abdominal cramping, diarrhea, and vomiting. Patient states this started yesterday. She states she had 1 bowel movement that was grossly bloody, but has had no further blood in her stool since. Patient denies any lightheadedness or near syncope, but states that every time she tries to eat something, it goes right through her. She states that smells also make her feel nauseated. Patient denies any fevers. No chest pain or shortness of breath. Related Data Home Medications Medication Instructions Recorded Confirmed losartan 100 mg PO DAILY #0 10/27/17 08/28/19 albuterol sulfate [ProAir HFA] 1 puff INHALATION PRN PRN 10/26/18 08/28/19 fluticasone propion-salmeterol 1 puff INHALATION BID 10/26/18 08/28/19 [Advair Diskus] montelukast 10 mg PO DAILY 10/26/18 08/28/19 chlorthalidone 25 mg PO DAILY 08/28/19 08/28/19 lidocaine 1 patch TOPICAL DAILY 08/28/19 08/28/19 methocarbamol 500 mg PO DIRECTED 08/28/19 tiotropium bromide [Spiriva with 18 mcg INHALATION DAILY 08/28/19 08/28/19 HandiHaler] Previous Rx's Medication Instructions Recorded loperamide [Imodium A-D] 2 mg PO Q2-4H PRN #120 ml 08/28/19 ondansetron 4 mg PO Q6H PRN #14 tab 08/28/19 Allergies Allergy/AdvReac Type Severity Reaction Status Date / Time aspirin [ASPIRIN] Allergy Unknown MAKES HER Verified 08/10/19 10:26 BLEED Review of Systems Constitutional Constitutional: Denies chills, Denies fatigue, Denies fever(s), Denies frequent falls, Denies lethargy and Denies weakness Eyes Eyes: Denies change in vision, Denies eye discharge, Denies irritation and Denies loss of vision ENT Ears, Nose, Mouth, and Throat: Denies change in voice, Denies dizziness, Denies neck pain, Denies sore throat and Denies throat swelling Cardiovascular Cardiovascular: Denies chest pain, Denies irregular heart rhythm, Denies lightheadedness, Denies palpitations, Denies dyspnea, Denies dyspnea on exertion and Denies orthopnea Respiratory Respiratory: Denies cough, Denies dyspnea, Denies dyspnea on exertion and Denies wheezing Gastrointestinal Gastrointestinal: Denies abdominal pain, Denies change in bowel habits, Reports diarrhea, Reports nausea and Reports vomiting Genitourinary Genitourinary: Denies hematuria, Denies flank pain, Denies urinary incontinence and Denies urinary urgency Musculoskeletal Musculoskeletal: Denies back pain, Denies muscle weakness, Denies neck pain, Denies numbness and Denies tingling Integumentary/Breasts Skin/Breast: Denies pruritus, Denies erythema, Denies rash and Denies wounds Neurologic Neurologic: Denies behavioral changes, Denies confusion, Denies dizziness, Denies frequent falls, Denies loss of vision, Denies numbness, Denies tingling and Denies weakness Psychiatric Psychiatric: Denies anxiety, Denies behavioral changes, Denies confusion, Denies depression, Denies homicidal ideation and Denies suicidal ideation Endocrine Endocrine: Denies fatigue, Denies flushing and Denies palpitations Hematologic/Lymphatic Hematologic/Lymphatic: Denies easy bruising Allergic/Immunologic Allergic/Immunologic: Denies urticaria, Denies throat swelling and Denies wheezing Patient History Medical History (Updated 08/28/19 @ 17:41 by Marcela Ardon MD) Asthma exacerbation (Inactive) Bronchitis (Acute) Surgical History H/O tubal ligation (Acute) Social History Smoking Status: Never smoker alcohol intake frequency: holidays/special occasions only Substance Use Type: does not use Exam Initial Vital Signs Initial Vital Signs: Vital Signs Temperature 96.9 F L 08/28/19 13:14 Pulse Rate 68 08/28/19 13:14 Respiratory Rate 14 08/28/19 13:14 Blood Pressure 75/47 L 08/28/19 13:14 Pulse Oximetry 99 08/28/19 13:14 Const General: cooperative and well developed Nutritional Appearance: well nourished Orientation: alert, awake, oriented x3 and not confused [facility] Head: normocephalic and atraumatic Ears: external ears normal Nose: external nose normal and No nasal discharge Face and sinus: face symmetric and No dry mucous membranes Mouth: oral mucosae normal and moist mucous membranes Teeth and gingiva: dentition normal Eyes General: appearance normal, both eyes and all related structures Eyelids: eyelids normal Conjunctivae: conjunctivae normal Sclera: sclerae normal Pupils: PERRL EOM: EOM intact bilaterally Neck Neck: normal visual inspection, trachea midline, No lymphadenopathy, No midline deformity and No JVD Lymphatic: No lymphedema Chest Chest: normal inspection of the chest Resp Effort & Inspection: normal respiratory effort, able to speak in complete sentences, no respiratory distress and no use of accessory muscles Auscultation: clear to auscultation bilaterally, no rales, no rhonchi and no wheezes Cardio Rate: regular rate Rhythm: regular rhythm Heart Sounds: no click, no gallops, no murmurs and no rubs Pulses: normal peripheral pulses GI Inspection: non-distended Palpation: soft, no hepatosplenomegaly, No guarding, No pulsatile mass and tender (Mild, diffuse, no rebound) Back/Spine/Pelvis Back: No CVA tenderness Cervical Spine: cervical ROM normal and No pain with cervical ROM Thoracic/Lumbar Spine: thoracic and lumbar spine normal to inspection Skin General: no rashes or lesions noted, No jaundice and No petechiae Neuro General: alert, oriented x3, gait normal and no focal motor deficits Speech: speech normal Extrem General: full ROM, no clubbing, cyanosis or edema, no pedal edema and no calf tenderness Psych Appearance: well kempt Mental Status: mental status grossly normal Attitude: cooperative Thought Content: normal and suicidality Judgment: judgment good Course Course Course Narrative: Patient was given a total of 2 L of IV normal saline in the emergency department and exhibited marked improvement in her blood pressure. She was worked up with labs, and found to have a minimally elevated white blood cell count and a normal lactate. Her H&H were normal. The patient was sent for CT scan of the abdomen and pelvis which was unremarkable. She was found to have an initially elevated creatinine at 2.20, up from her previous level in our system at 0.7 in September of 2018. Her GFR was down to 23 some rum greater than 60 on the same previous lab set. After the IV fluids were given, the labs were repeated, and the patient was found to have a drastically improved GFR to 31 and a significant decrease in her creatinine to 1.7. BUN was down to 47 from 52. I felt that most likely, the patient's apparent renal insufficiency was due to a dehydration. The patient was found to be feeling much better and after receiving Zofran and Compazine, reported her nausea to be better. I have discussed with her that is very important to continue to aggressively take clear liquids as much as her stomach will allow, to continue to correct the dehydration at home. We have discussed home management of symptoms, as well as the usual indications for return. Patient's is with her and expresses understanding. Orders Ordered: ED Orders 08/28/19 13:22 EKG-12 Lead Stat 08/28/19 13:39 Complete Blood Count AUTO DIFF Stat Comprehensive Metabolic Panel Stat Lactate (Lactic Acid) Stat Partial Thromboplastin Time Stat Prothrombin Time INR Stat Type and Screen Stat 08/28/19 15:46 CT abdomen pelvis wo con Stat 08/28/19 17:12 Basic Metabolic Panel Stat Discontinued Medications Sodium Chloride (Normal Saline 0.9%) 1,000 mls @ 1,000 mls/hr IV BOLUS ONE Stop: 08/28/19 15:12 Last Infusion: 08/28/19 15:01 Dose: 0 mls/hr Documented by: Admin: 08/28/19 14:20 Dose: 1,000 mls/hr Documented by: DORA Sodium Chloride (Normal Saline 0.9%) 1,000 mls @ 1,000 mls/hr IV BOLUS ONE Stop: 08/28/19 15:29 Last Infusion: 08/28/19 16:10 Dose: 0 mls/hr Documented by: Admin: 08/28/19 15:02 Dose: 1,000 mls/hr Documented by: DORA Ondansetron HCl (Zofran) 4 mg IV NOW ONE Stop: 08/28/19 13:23 Last Admin: 08/28/19 13:56 Dose: 4 mg Documented by: SANTINO Pantoprazole Sodium (Protonix) 80 mg IV NOW ONE Stop: 08/28/19 13:23 Last Admin: 08/28/19 13:56 Dose: 80 mg Documented by: SANTINO Prochlorperazine (Compazine) 10 mg IV NOW ONE Stop: 08/28/19 14:54 Last Admin: 08/28/19 15:01 Dose: 10 mg Documented by: DORA Vital Signs Vital signs: Vital Signs - 8 hr 08/28/19 13:14 08/28/19 13:44 08/28/19 14:00 Temperature 96.9 F L Pulse Rate 68 66 63 Pulse Rate [Orthostatic Lying] Pulse Rate [Orthostatic Sitting] Pulse Rate [Orthostatic Standing] Respiratory Rate 14 17 Blood Pressure 75/47 L Blood Pressure [Orthostatic Lying] Blood Pressure [Orthostatic Sitting] Blood Pressure [Orthostatic Standing] Blood Pressure [Right Arm] 85/51 L 75/44 L Pulse Oximetry 99 98 14 L 08/28/19 14:10 08/28/19 14:40 08/28/19 15:00 Temperature Pulse Rate 65 61 67 Pulse Rate [Orthostatic Lying] Pulse Rate [Orthostatic Sitting] Pulse Rate [Orthostatic Standing] Respiratory Rate 20 18 16 Blood Pressure Blood Pressure [Orthostatic Lying] Blood Pressure [Orthostatic Sitting] Blood Pressure [Orthostatic Standing] Blood Pressure [Right Arm] 77/49 L 85/45 L 82/52 L Pulse Oximetry 98 99 99 08/28/19 15:30 08/28/19 16:30 08/28/19 17:25 Temperature Pulse Rate 64 66 Pulse Rate [Orthostatic Lying] 65 Pulse Rate [Orthostatic Sitting] 72 Pulse Rate [Orthostatic Standing] 66 Respiratory Rate 16 16 Blood Pressure Blood Pressure [Orthostatic Lying] 92/49 L Blood Pressure [Orthostatic Sitting] 94/63 Blood Pressure [Orthostatic Standing] 96/63 Blood Pressure [Right Arm] 101/58 L 99/55 L Pulse Oximetry 100 100 08/28/19 18:18 08/28/19 18:39 Temperature 99.8 F H Pulse Rate 69 64 Pulse Rate [Orthostatic Lying] Pulse Rate [Orthostatic Sitting] Pulse Rate [Orthostatic Standing] Respiratory Rate 14 16 Blood Pressure 101/58 L Blood Pressure [Orthostatic Lying] Blood Pressure [Orthostatic Sitting] Blood Pressure [Orthostatic Standing] Blood Pressure [Right Arm] 106/50 L Pulse Oximetry 99 99 MDM - Abdominal Pain Medical Records Attestation: I reviewed the patient's medical records. Lab Data Attestation: I reviewed the patient's lab results. Result diagrams: 08/28/19 13:39 08/28/19 17:12 Labs: Lab Results 08/28/19 08/28/19 08/28/19 Range/Units 13:39 13:39 13:39 WBC 12.6 H (4.5-11.0) X10^3/uL RBC 4.72 (4.0-5.2) X10^6/uL Hgb 13.2 (12.0-16.0) g/dL Hct 39.3 (36-46) % MCV 83.2 (80-100) fL MCH 28.0 (26-34) PG MCHC 33.7 (30-36) % RDW 13.5 (11.6-14.8) % Plt Count 316 (150-400) X10^3/uL Neut % (Auto) 68.9 (50-75) % Lymph % (Auto) 19.3 L (25-40) % [place] % (Auto) 9.0 (3-14) % Eos % (Auto) 2.3 (2-4) % Baso % (Auto) 0.5 (0-2) % Neut # (Auto) 8700 H (1894-3540) /uL Lymph # (Auto) 2400 (3654-1517) /uL [place] # (Auto) 1100 H (0-900) /uL Eos # (Auto) 300 (0-450) /uL Baso # (Auto) 100 (0-100) /uL PT 11.6 (10.1-12.7) SECONDS INR 1.0 (0.9-1.3) APTT 32 (26.4-36.2) SECONDS Sodium 136 L (137-145) mmol/L Potassium 3.1 L (3.4-5.1) mmol/L Chloride 97 L (98-107) mmol/L Carbon Dioxide 26 (22-32) mmol/L BUN 52 H (7-17) mg/dL Creatinine 2.20 H (0.52-1.04) mg/dL Estimated GFR 23.0 L (>60) mL/min BUN/Creatinine Ratio 23.6 H (6-22) Glucose 100 (70-100) mg/dL Lactate (0.7-2.1) mmol/L Calcium 8.9 (8.4-10.2) mg/dL Total Bilirubin 0.4 (0.2-1.3) mg/dL AST 20 (14-36) IU/L ALT 9 (9-52) IU/L Alkaline Phosphatase 89 (38-126) U/L Total Protein 7.9 (6.3-8.2) g/dL Albumin 4.4 (3.5-5.0) g/dL Globulin 3.5 (1.7-4.1) g/dL Albumin/Globulin Ratio 1.3 (1.0-2.8) Blood Type Antibody Screen 08/28/19 08/28/19 08/28/19 Range/Units 13:39 13:39 17:12 WBC (4.5-11.0) X10^3/uL RBC (4.0-5.2) X10^6/uL Hgb (12.0-16.0) g/dL Hct (36-46) % MCV (80-100) fL MCH (26-34) PG MCHC (30-36) % RDW (11.6-14.8) % Plt Count (150-400) X10^3/uL Neut % (Auto) (50-75) % Lymph % (Auto) (25-40) % [place] % (Auto) (3-14) % Eos % (Auto) (2-4) % Baso % (Auto) (0-2) % Neut # (Auto) (2890-2906) /uL Lymph # (Auto) (0338-0005) /uL [place] # (Auto) (0-900) /uL Eos # (Auto) (0-450) /uL Baso # (Auto) (0-100) /uL PT (10.1-12.7) SECONDS INR (0.9-1.3) APTT (26.4-36.2) SECONDS Sodium 137 (137-145) mmol/L Potassium 3.4 (3.4-5.1) mmol/L Chloride 105 (98-107) mmol/L Carbon Dioxide 23 (22-32) mmol/L BUN 47 H (7-17) mg/dL Creatinine 1.70 H (0.52-1.04) mg/dL Estimated GFR 31.0 L (>60) mL/min BUN/Creatinine Ratio 27.6 H (6-22) Glucose 109 H (70-100) mg/dL Lactate 0.8 (0.7-2.1) mmol/L Calcium 7.7 L (8.4-10.2) mg/dL Total Bilirubin (0.2-1.3) mg/dL AST (14-36) IU/L ALT (9-52) IU/L Alkaline Phosphatase (38-126) U/L Total Protein (6.3-8.2) g/dL Albumin (3.5-5.0) g/dL Globulin (1.7-4.1) g/dL Albumin/Globulin Ratio (1.0-2.8) Blood Type O Positive Antibody Screen Negative Point of care testing: Urine Dip Bedside Urine Glucose Negative Bedside Urine Bilirubin - Negative Bedside Urine Ketone - Negative Urine Specific [place] 1.010 Bedside Urine Occult Blood - Negative Bedside Urine pH 6.0 Bedside Urine Protein - Negative Bedside Urine Urobilinogen - Negative Bedside Urine Nitrite - Negative Bedside Urine Leukocytes - Negative Esterase Imaging Data CT scan - abdomen: Radiologist's impression: PROCEDURE: CT ABDOMEN PELVIS WO CON INDICATIONS: abdominal pain, hypotension TECHNIQUE: Noncontrast 5 mm thick sections acquired from the diaphragms to the symphysis. 5 mm coronal and sagittal reformats were then performed. For radiation dose reduction, the following was used: automated exposure control, adjustment of mA and/or kV according to patient size. COMPARISON: [facility] , CT, CHEST HI-RESOLUTION, 04/19/2011, 9:52. FINDINGS: Image quality: Excellent. ABDOMEN: Lung bases: There is mild dependent atelectasis bilaterally. Bilateral calcified nodules are noted consistent with old granulomatous disease. Heart size is within normal limits. Solid organs: There are 2 small foci of calcifications in the right hepatic lobe compatible with sequela of old granulomatous disease. The gallbladder is nondistended without calcified gallstones. Biliary system is non-dilated. Pancreas enhances normally. No peripancreatic fat stranding or fluid collections. No pancreatic duct dilatation. The spleen is normal in size. No adrenal nodules. Kidneys demonstrate no hydronephrosis. Peritoneum and bowel: Unenhanced bowel loops demonstrate normal wall thickness and caliber. The appendix is normal in appearance. There is colonic diverticulosis without acute diverticulitis. No free fluid or air. Nodes and vessels: No retroperitoneal or mesenteric adenopathy by size criteria. There are scattered mildly prominent mesenteric lymph nodes including a right lower quadrant noted measuring up to 0.9 cm in short axis. Aorta and inferior vena cava are normal in caliber. Miscellaneous: No ventral hernias. PELVIS: Genitourinary: Bladder wall thickness is normal. Miscellaneous: No inguinal hernias or adenopathy. Bones: No suspicious bony lesions. No vertebral body compression fractures. IMPRESSION: 1. No definite acute intra-abdominal abnormality. Specifically, no evidence of appendicitis. 2. Colonic diverticulosis without acute diverticulitis. 3. Mildly prominent mesenteric lymph nodes are nonspecific but likely reactive. Dictated by: Aniceto Gama M.D. on 08/28/2019 at 16:27 Approved by: Aniceto Gama M.D. on 08/28/2019 at 16:32 ECG Data Attestation: I personally reviewed and interpreted this ECG as follows: (See below) Interpretation: Twelve lead EKG performed August 28, 2019 at 1:40 p.m., as follows: Regular ventricular rhythm with a rate of 63 beats per minute MD interval 171 millisecond QRS duration 96 milliseconds QTC interval [address] T wave changes Normal axis No ectopy Interpretation: Normal sinus rhythm; no signs of acute ischemia; normal EKG as interpreted by ED MD. Discharge Plan Departure Patient Disposition: Home Clinical Impression: Gastroenteritis, Acute dehydration, Acute prerenal azotemia Discharge Date/Time: 08/28/19 18:38 Instructions: DI for Dehydration -- Adult, DI for Viral Gastroenteritis -- Adult Activity Restrictions/Additional Instructions: Your CT scan looks good. Your labs showed that you were quite dehydrated when you got here. However, with IV fluids, the labs have improved considerably, and will continue to improve as you are able to get more fluids. Please take the nausea and diarrhea medication, as needed. Your prescriptions have been electronically transmitted to the [facility] in [place]. Prescriptions: New ondansetron 4 mg tablet,disintegrating 4 mg PO Q6H PRN (Reason: nausea and vomiting) Qty: 14 RF: 0 loperamide [Imodium A-D] 1 mg/7.5 mL liquid 2 mg PO Q2-4H PRN (Reason: loose stool) Qty: 120 RF: 0 No Action losartan 100 MG tablet 100 mg PO DAILY Qty: 0 RF: 0 methocarbamol 500 mg tablet 500 mg PO DIRECTED RF: 0 chlorthalidone 25 mg tablet 25 mg PO DAILY RF: 0 lidocaine 5 % adhesive patch,medicated 1 patch topical DAILY RF: 0 Spiriva with HandiHaler 18 mcg capsule, w/inhalation device 18 mcg INHALATION DAILY RF: 0 fluticasone propion-salmeterol [Advair Diskus] 500-50 mcg/dose blister with device 1 puff Inhalation BID RF: 0 montelukast 10 mg tablet 10 mg PO DAILY RF: 0 albuterol sulfate [ProAir HFA] 90 mcg/actuation HFA aerosol inhaler 1 puff Inhalation PRN PRN (Reason: Shortness Of Breath) RF: 0 Referrals: Glendy Armando MD [Primary Care Provider] -
[2019-08-28] MEDS: PROCHLORPERAZINE 10 MG/2 ML VIAL IV (15:01)
[2019-08-28 15:04] LABS: Lactate (Lactic Acid) 0.8 mmol/L (0.7-2.1)
--- NOTE | 2019-08-28 15:46 | DI.CT.S_ITS ---
PROCEDURE: CT ABDOMEN PELVIS WO CON INDICATIONS: abdominal pain, hypotension TECHNIQUE: Noncontrast 5 mm thick sections acquired from the diaphragms to the symphysis. 5 mm coronal and sagittal reformats were then performed. For radiation dose reduction, the following was used: automated exposure control, adjustment of mA and/or kV according to patient size. COMPARISON: [facility] [place] , CT, CHEST HI-RESOLUTION, 04/19/2011, 9:52. FINDINGS: Image quality: Excellent. ABDOMEN: Lung bases: There is mild dependent atelectasis bilaterally. Bilateral calcified nodules are noted consistent with old granulomatous disease. Heart size is within normal limits. Solid organs: There are 2 small foci of calcifications in the right hepatic lobe compatible with sequela of old granulomatous disease. The gallbladder is nondistended without calcified gallstones. Biliary system is non-dilated. Pancreas enhances normally. No peripancreatic fat stranding or fluid collections. No pancreatic duct dilatation. The spleen is normal in size. No adrenal nodules. Kidneys demonstrate no hydronephrosis. Peritoneum and bowel: Unenhanced bowel loops demonstrate normal wall thickness and caliber. The appendix is normal in appearance. There is colonic diverticulosis without acute diverticulitis. No free fluid or air. Nodes and vessels: No retroperitoneal or mesenteric adenopathy by size criteria. There are scattered mildly prominent mesenteric lymph nodes including a right lower quadrant noted measuring up to 0.9 cm in short axis. Aorta and inferior vena cava are normal in caliber. Miscellaneous: No ventral hernias. PELVIS: Genitourinary: Bladder wall thickness is normal. Miscellaneous: No inguinal hernias or adenopathy. Bones: No suspicious bony lesions. No vertebral body compression fractures. IMPRESSION: 1. No definite acute intra-abdominal abnormality. Specifically, no evidence of appendicitis. 2. Colonic diverticulosis without acute diverticulitis. 3. Mildly prominent mesenteric lymph nodes are nonspecific but likely reactive. Dictated by: Aniceto Gama M.D. on 08/28/2019 at 16:27 Approved by: Aniceto Gama M.D. on 08/28/2019 at 16:32
[2019-08-28 17:31] LABS: BUN Creatinine Ratio 27.6 (6-22); Blood Urea Nitrogen 47 mg/dL (7-17); Calcium 7.7 mg/dL (8.4-10.2); Carbon Dioxide 23 mmol/L (22-32); Chloride 105 mmol/L (98-107); Glucose 109 mg/dL (70-100); HEMOLYSIS < 15 (0-50); Potassium 3.4 mmol/L (3.4-5.1); Sodium 137 mmol/L (137-145)
== END 2019-08-28 18:38 | disposition home or self-care (01) ==
PROVIDERS: Emergency Provider Emergency Medicine; PCP Internal Medicine
DX: K52.9 Noninfective gastroenteritis and colitis, unspecified (principal); E86.0 Dehydration; R79.89 Other specified abnormal findings of blood chemistry; D72.829 Elevated white blood cell count, unspecified; I95.9 Hypotension, unspecified
CPT/HCPCS: 36415; 74176; 80048; 80053; 81003; 83605; 85025; 85610; 85730; 86850; 86900; 86901; 93005; 93010; 96361; 96374; 96375; 99285; C9113; J0780; J2405

== ENCOUNTER 2020-05-02 09:26 | Emergency (ER) | payer OTHER, SELFPAY ==
[2020-05-02] VITALS (48 sets, daily range): BP systolic 166–228; BP diastolic 69–119; PULSE 59–100; RESP 14–43; TEMP 36.9; O2SAT 94–98; BMI 27.2
--- NOTE | 2020-05-02 09:34 | ED_ITS ---
HPI - SOB/Dyspnea General Chief Complaint: Shortness of Breath/Dyspnea Stated Complaint: Shortness of breath, has asthma Time Seen by Provider: 05/02/20 09:32 History of Present Illness HPI Narrative: CC: SOB HPI: The patient is a 60-year-old female who has a history of asthma. She deve loped progressive Ashlie worsening shortness of breath over the last few days which has been associated with a cough productive of a clear sputum without any blood. She complains of chest pain which primarily occurs with twisting moving deep breathing and coughing. Chest pain is mostly sharp arm. She denies any fall or injury. She has had chills and sweats but no fever. She has been wheezing. S he denies a history of COPD myocardial infarction congestive heart failure but admits to a history of hypertension. She does not know if she has diabetes mellitus. She admits to a previous history of pneumonia. She does not smoke cigarettes drink alcohol or use any drugs. She states that her chest pain radiates straight through to her back. She has had no racing of her heart or dizziness. She has been nauseous but has not had vomiting or diarrhea. She has not had any blood in her stool but complains of diffuse abdominal pain. She denies any urinary symptoms or urinary frequency. Her abdominal pain is crampy in nature and is 8/10 in intensity while her chest pain is 10/10 in intensity. Related Data Home Medications Medication Instructions Recorded Confirmed losartan 100 mg PO DAILY #0 10/27/17 05/02/20 fluticasone propion-salmeterol 1 puff INHALATION BID 10/26/18 05/02/20 [Advair Diskus] montelukast 10 mg PO DAILY 10/26/18 05/02/20 Spiriva with HandiHaler 18 mcg INHALATION DAILY 08/28/19 05/02/20 methocarbamol 500 mg PO DIRECTED 08/28/19 05/02/20 Previous Rx's Medication Instructions Recorded loperamide [Imodium A-D] 2 mg PO Q2-4H PRN #120 ml 08/28/19 albuterol sulfate 2.5 mg INHALATION Q4H PRN #90 ml 05/02/20 doxycycline hyclate 100 mg PO BID #20 cap 05/02/20 ipratropium-albuterol 3 ml INHALATION Q4H PRN #90 ml 05/02/20 prednisone 60 mg PO DAILY #15 tab 05/02/20 Allergies Allergy/AdvReac Type Severity Reaction Status Date / Time aspirin [ASPIRIN] Allergy Unknown MAKES HER Verified 08/10/19 10:26 BLEED Review of Systems Review of Systems Narrative: Her review of systems were all negative except for those mentioned in the history of present illness. Patient History Medical History Asthma exacerbation (Inactive) Bronchitis (Acute) Surgical History H/O tubal ligation (Acute) Social History Smoking Status: Never smoker Smoking Status: Never smoker alcohol intake frequency: holidays/special occasions only Substance Use Type: does not use Exam Narrative Exam Narrative: PHYSICAL EXAM: CONSTITUTIONAL: Awake, Alert, Oriented, Coherent, Cooperative in NAD. Does not appear toxic or ill. HEAD: AT/NC EENT: PERRL, FROM of eyes, NOSE:No epistaxis or nasal drainage MOUTH:Oral mucosa is moist and pink, posterior pharynx. NECK: Supple, no obvious JVD, Trachea is midline without stridor, no palpable LN. SPINE: Palpation of the cervical, Thoracic, Lumbar or Sacral spine reveals no gross deformity or tenderness. No CVA tenderness. THORAX: No deformity, retractions, . The patient's chest wall is tender to AP compression which mimics the chest pain she describes. There is no crepitus or subcutaneous air. LUNGS: There is markedly decreased breath sounds bilaterally. Anteriorly there are inspiratory and expiratory faint fine distant wheezes. She is not moving much air. Posteriorly the patient has diffuse expiratory fine wheezes with a few inspiratory crackles in both bases of her lungs. HEART: Normal heart tones, regular rhythm and rate without murmur. ABDOMEN: Distended, mildly tympanitic, tense with diffuse guarding no rebound no rigidity most tender in the right and left lower quadrants. Pain is worse with deep breathing and coughing. EXTREMITIES: No edema, deformity, tenderness or cyanosis. SKIN: No rash, bruising, NEURO: Awake, alert, oriented, conversive, cranial nerves II-XII are symmetrical , moves all 4 extremities and is ambulatory. MENTAL HEALTH: Does not appear anxious or depressed. Initial Vital Signs Initial Vital Signs: Vital Signs Pulse Rate 73 05/02/20 09:42 Respiratory Rate 28 H 05/02/20 09:42 Blood Pressure 195/91 H 05/02/20 09:42 Pulse Oximetry 97 05/02/20 09:42 Course Course Course Narrative: 1141: The patient's CT of the abdomen revealed: 1. No evidence of acute abdominal process. 2. There is a lobulated soft tissue density lesion in the left breast measuring 1.2 cm in diameter 3. A 1 cm hypervascular submucosal fundal fibroid CT angiogram of the patient's chest reveals 1. No evidence of an acute pulmonary emboli. 2. Very subtle patchy bilateral ground-glass opacities uncertain significance this may represent the presence of acute inflammatory process nonspecific. 3. 1.3 cm maximum diameter left breast nodule 4. A 6 mm right pulmonary nodule The patient's CT scan revealed bibasilar ground-glass appearance etiology unclear. Her rapid covid is negative. Will order a regular Covid. 12:14 the patient's CRP is 0.7, lipase 94, procalcitonin less than 0.05, troponin less than 0.012, ferritin 37 GFR is greater than 59.7 D-dimer is less than 200. Potassium is 3.2. Clinically the patient does not have abnormal laboratory functions to support [place] it at this time. However the patient had abnormal CT findings in the bases of both lungs that could represent early Covid. 1224: I informed the patient that she has a nodule in her left breast and in her right lung. She would like to go home. She was informed that she has arm bibasilar infiltrates that looks similar to what we see with Covid. She states that she has been coughing at home and she is feeling much better with less wheezing. She has home nebulizer at home. She states that she always feels better with prednisone. She was advised that she needs to be isolated and stay at home until she is called with the results of her 2nd [place] it test. She will be given a 3 day work excuse.. Orders Ordered: Discontinued Medications Albuterol (Ventolin Hfa) 2 puff INH NOW ONE Stop: 05/02/20 09:35 Last Admin: 05/02/20 09:45 Dose: 2 puff Documented by: TORI Albuterol/Ipratropium (Combivent Respimat) 2 puff INH NOW ONE Stop: 05/02/20 09:53 Last Admin: 05/02/20 10:48 Dose: 2 puff Documented by: TORI Al Hydrox/Mg Hydrox/Simethicone 20 ml/ Lidocaine HCl 15 ml 0 ml PO NOW ONE Stop: 05/02/20 14:57 Last Admin: 05/02/20 15:02 Dose: 35 ml Documented by: SANTINO Hydralazine HCl (Apresoline) 10 mg IV NOW ONE Stop: 05/02/20 14:05 Last Admin: 05/02/20 14:09 Dose: Not Given Documented by: SANTINO Hydralazine HCl (Apresoline) 10 mg IV NOW ONE Stop: 05/02/20 14:06 Last Admin: 05/02/20 14:09 Dose: 10 mg Documented by: SANTINO Hydralazine HCl (Apresoline) 20 mg IV NOW ONE Stop: 05/02/20 14:35 Last Admin: 05/02/20 14:53 Dose: Not Given Documented by: CLAIR Magnesium Sulfate (Magnesium Sulfate) 2 gm in 50 mls @ 25 mls/hr IV NOW ONE Stop: 05/02/20 11:51 Last Infusion: 05/02/20 12:15 Dose: 0 mls/hr Documented by: CLAIR Cosigned by: SANTINO Admin: 05/02/20 10:18 Dose: 25 mls/hr Documented by: CLAIR Cosigned by: SANTINO Sodium Chloride (Normal Saline 0.9%) 1,000 mls @ 150 mls/hr IV BOLUS ONE Stop: 05/02/20 16:50 Last Infusion: 05/02/20 11:48 Dose: 0 mls/hr Documented by: Admin: 05/02/20 10:16 Dose: 1,000 mls/hr Documented by: CLAIR Sodium Chloride (Normal Saline 0.9%) 1,000 mls @ 125 mls/hr IV CONT MAGDA Last Infusion: 05/02/20 15:43 Dose: 0 mls/hr Documented by: Admin: 05/02/20 11:52 Dose: 125 mls/hr Documented by: CLAIR Levofloxacin (Levaquin) 750 mg in 150 mls @ 100 mls/hr IV NOW ONE Stop: 05/02/20 13:54 Last Infusion: 05/02/20 14:52 Dose: 0 mls/hr Documented by: Admin: 05/02/20 12:53 Dose: 100 mls/hr Documented by: CLAIR Methylprednisolone (Solu-Medrol 125 Mg Vial) 125 mg IV NOW ONE Stop: 05/02/20 09:59 Last Admin: 05/02/20 10:17 Dose: 125 mg Documented by: CLAIR Morphine Sulfate (Morphine) 4 mg IV NOW ONE Stop: 05/02/20 09:59 Last Admin: 05/02/20 10:17 Dose: 4 mg Documented by: CLAIR Ondansetron HCl (Zofran) 4 mg IV NOW ONE Stop: 05/02/20 10:02 Last Admin: 05/02/20 10:19 Dose: 4 mg Documented by: CLAIR Vital Signs Vital signs: Vital Signs - 8 hr 05/02/20 09:42 05/02/20 09:47 05/02/20 09:50 Temperature 98.4 F Pulse Rate 73 72 69 Respiratory Rate 28 H 22 32 H Blood Pressure 195/91 H 228/119 H 191/88 H Pulse Oximetry 97 97 96 05/02/20 10:00 05/02/20 10:10 05/02/20 10:15 Temperature Pulse Rate 68 69 68 Respiratory Rate 20 28 H 20 Blood Pressure 173/69 H 172/82 H Pulse Oximetry 97 97 97 05/02/20 10:17 05/02/20 10:20 05/02/20 10:30 Temperature 98.4 F Pulse Rate 66 65 Respiratory Rate 18 21 Blood Pressure 178/87 H Pulse Oximetry 96 96 05/02/20 10:40 05/02/20 10:46 05/02/20 10:50 Temperature Pulse Rate 66 66 65 Respiratory Rate 22 20 Blood Pressure 186/86 H Pulse Oximetry 97 97 05/02/20 10:59 05/02/20 11:00 05/02/20 11:10 Temperature Pulse Rate 60 59 L 61 Respiratory Rate 18 25 H 29 H Blood Pressure 174/84 H Pulse Oximetry 97 96 05/02/20 11:20 05/02/20 11:30 Temperature Pulse Rate 70 64 Respiratory Rate 22 16 Blood Pressure Pulse Oximetry 97 97 MDM - SOB/Dyspnea Lab Data Result diagrams: 05/02/20 09:53 05/02/20 09:53 Labs: Lab Results 05/02/20 05/02/20 05/02/20 Range/Units 09:53 09:53 09:53 WBC 9.9 (4.5-11.0) X10^3/uL RBC 4.86 (4.0-5.2) X10^6/uL Hgb 13.9 (12.0-16.0) g/dL Hct 41.4 (36-46) % MCV 85.1 (80-100) fL MCH 28.6 (26-34) PG MCHC 33.6 (30-36) % RDW 13.9 (11.6-14.8) % Plt Count 295 (150-400) X10^3/uL Neut % (Auto) 58.2 (50-75) % Lymph % (Auto) 28.4 (25-40) % [place] % (Auto) 5.9 (3-14) % Eos % (Auto) 6.5 H (2-4) % Baso % (Auto) 1.0 (0-2) % Neut # (Auto) 5700 (4454-8822) /uL Lymph # (Auto) 2800 (2520-2560) /uL [place] # (Auto) 600 (0-900) /uL Eos # (Auto) 600 H (0-450) /uL Baso # (Auto) 100 (0-100) /uL D-Dimer < 200 (<230) ng/mL Sodium (137-145) mmol/L Potassium (3.4-5.1) mmol/L Chloride (98-107) mmol/L Carbon Dioxide (22-32) mmol/L BUN (7-17) mg/dL Creatinine (0.52-1.04) mg/dL Estimated GFR (>60) mL/min BUN/Creatinine Ratio (6-22) Glucose (70-100) mg/dL Lactate (0.7-2.1) mmol/L Calcium (8.4-10.2) mg/dL Ferritin (11-264) ng/mL Total Bilirubin (0.2-1.3) mg/dL AST (14-36) IU/L ALT (<35) IU/L Alkaline Phosphatase (38-126) U/L Lactate Dehydrogenase (313-618) U/L Total Creatine Kinase (30-135) U/L CK-MB (CK-2) (<2.37) ng/mL CK-MB (CK-2) Rel Index (1.5-5.0) % Troponin I (0.01-0.034) ng/mL C-Reactive Protein (<1.0) mg/dL NT-Pro-B Natriuret Pep (<125) pg/mL Total Protein (6.3-8.2) g/dL Albumin (3.5-5.0) g/dL Globulin (1.7-4.1) g/dL Albumin/Globulin Ratio (1.0-2.8) Lipase (23-300) U/L Procalcitonin < 0.05 (<0.5) ng/mL Urine RBC (0-5/HPF) Urine WBC (0-5/HPF) Ur Squamous Epith Cells (0-5/HPF) Urine Bacteria (None) Ur Culture Indicated? COVID-19 PCR 05/02/20 05/02/20 05/02/20 Range/Units 09:53 09:53 09:53 WBC (4.5-11.0) X10^3/uL RBC (4.0-5.2) X10^6/uL Hgb (12.0-16.0) g/dL Hct (36-46) % MCV (80-100) fL MCH (26-34) PG MCHC (30-36) % RDW (11.6-14.8) % Plt Count (150-400) X10^3/uL Neut % (Auto) (50-75) % Lymph % (Auto) (25-40) % [place] % (Auto) (3-14) % Eos % (Auto) (2-4) % Baso % (Auto) (0-2) % Neut # (Auto) (0165-1607) /uL Lymph # (Auto) (0541-6369) /uL [place] # (Auto) (0-900) /uL Eos # (Auto) (0-450) /uL Baso # (Auto) (0-100) /uL D-Dimer (<230) ng/mL Sodium 140 (137-145) mmol/L Potassium 3.2 L (3.4-5.1) mmol/L Chloride 106 (98-107) mmol/L Carbon Dioxide 28 (22-32) mmol/L BUN 15 (7-17) mg/dL Creatinine 0.96 (0.52-1.04) mg/dL Estimated GFR 59.7 L (>60) mL/min BUN/Creatinine Ratio 15.6 (6-22) Glucose 111 H (70-100) mg/dL Lactate 1.1 (0.7-2.1) mmol/L Calcium 9.0 (8.4-10.2) mg/dL Ferritin 37 (11-264) ng/mL Total Bilirubin 0.5 (0.2-1.3) mg/dL AST 27 (14-36) IU/L ALT 21 (<35) IU/L Alkaline Phosphatase 91 (38-126) U/L Lactate Dehydrogenase 512 (313-618) U/L Total Creatine Kinase 107 (30-135) U/L CK-MB (CK-2) < 0.22 (<2.37) ng/mL CK-MB (CK-2) Rel Index 0.2 L (1.5-5.0) % Troponin I < 0.012 (0.01-0.034) ng/mL C-Reactive Protein 0.7 (<1.0) mg/dL NT-Pro-B Natriuret Pep 52 (<125) pg/mL Total Protein 7.7 (6.3-8.2) g/dL Albumin 4.3 (3.5-5.0) g/dL Globulin 3.4 (1.7-4.1) g/dL Albumin/Globulin Ratio 1.3 (1.0-2.8) Lipase 94 (23-300) U/L Procalcitonin (<0.5) ng/mL Urine RBC (0-5/HPF) Urine WBC (0-5/HPF) Ur Squamous Epith Cells (0-5/HPF) Urine Bacteria (None) Ur Culture Indicated? COVID-19 PCR 05/02/20 05/02/20 05/02/20 Range/Units 10:01 10:01 11:43 WBC (4.5-11.0) X10^3/uL RBC (4.0-5.2) X10^6/uL Hgb (12.0-16.0) g/dL Hct (36-46) % MCV (80-100) fL MCH (26-34) PG MCHC (30-36) % RDW (11.6-14.8) % Plt Count (150-400) X10^3/uL Neut % (Auto) (50-75) % Lymph % (Auto) (25-40) % [place] % (Auto) (3-14) % Eos % (Auto) (2-4) % Baso % (Auto) (0-2) % Neut # (Auto) (8266-5216) /uL Lymph # (Auto) (2342-4478) /uL [place] # (Auto) (0-900) /uL Eos # (Auto) (0-450) /uL Baso # (Auto) (0-100) /uL D-Dimer (<230) ng/mL Sodium (137-145) mmol/L Potassium (3.4-5.1) mmol/L Chloride (98-107) mmol/L Carbon Dioxide (22-32) mmol/L BUN (7-17) mg/dL Creatinine (0.52-1.04) mg/dL Estimated GFR (>60) mL/min BUN/Creatinine Ratio (6-22) Glucose (70-100) mg/dL Lactate (0.7-2.1) mmol/L Calcium (8.4-10.2) mg/dL Ferritin (11-264) ng/mL Total Bilirubin (0.2-1.3) mg/dL AST (14-36) IU/L ALT (<35) IU/L Alkaline Phosphatase (38-126) U/L Lactate Dehydrogenase (313-618) U/L Total Creatine Kinase (30-135) U/L CK-MB (CK-2) (<2.37) ng/mL CK-MB (CK-2) Rel Index (1.5-5.0) % Troponin I (0.01-0.034) ng/mL C-Reactive Protein (<1.0) mg/dL NT-Pro-B Natriuret Pep (<125) pg/mL Total Protein (6.3-8.2) g/dL Albumin (3.5-5.0) g/dL Globulin (1.7-4.1) g/dL Albumin/Globulin Ratio (1.0-2.8) Lipase (23-300) U/L Procalcitonin (<0.5) ng/mL Urine RBC 1-5/hpf (0-5/HPF) Urine WBC 0-1/hpf (0-5/HPF) Ur Squamous Epith Cells 0-1 /hpf (0-5/HPF) Urine Bacteria None seen (None) Ur Culture Indicated? Cult not indicated COVID-19 PCR Cancelled Negative 05/02/20 Range/Units 12:07 WBC (4.5-11.0) X10^3/uL RBC (4.0-5.2) X10^6/uL Hgb (12.0-16.0) g/dL Hct (36-46) % MCV (80-100) fL MCH (26-34) PG MCHC (30-36) % RDW (11.6-14.8) % Plt Count (150-400) X10^3/uL Neut % (Auto) (50-75) % Lymph % (Auto) (25-40) % [place] % (Auto) (3-14) % Eos % (Auto) (2-4) % Baso % (Auto) (0-2) % Neut # (Auto) (3797-7358) /uL Lymph # (Auto) (3549-4824) /uL [place] # (Auto) (0-900) /uL Eos # (Auto) (0-450) /uL Baso # (Auto) (0-100) /uL D-Dimer (<230) ng/mL Sodium (137-145) mmol/L Potassium (3.4-5.1) mmol/L Chloride (98-107) mmol/L Carbon Dioxide (22-32) mmol/L BUN (7-17) mg/dL Creatinine (0.52-1.04) mg/dL Estimated GFR (>60) mL/min BUN/Creatinine Ratio (6-22) Glucose (70-100) mg/dL Lactate (0.7-2.1) mmol/L Calcium (8.4-10.2) mg/dL Ferritin (11-264) ng/mL Total Bilirubin (0.2-1.3) mg/dL AST (14-36) IU/L ALT (<35) IU/L Alkaline Phosphatase (38-126) U/L Lactate Dehydrogenase (313-618) U/L Total Creatine Kinase (30-135) U/L CK-MB (CK-2) (<2.37) ng/mL CK-MB (CK-2) Rel Index (1.5-5.0) % Troponin I (0.01-0.034) ng/mL C-Reactive Protein (<1.0) mg/dL NT-Pro-B Natriuret Pep (<125) pg/mL Total Protein (6.3-8.2) g/dL Albumin (3.5-5.0) g/dL Globulin (1.7-4.1) g/dL Albumin/Globulin Ratio (1.0-2.8) Lipase (23-300) U/L Procalcitonin (<0.5) ng/mL Urine RBC (0-5/HPF) Urine WBC (0-5/HPF) Ur Squamous Epith Cells (0-5/HPF) Urine Bacteria (None) Ur Culture Indicated? COVID-19 PCR Negative Urine Dip Bedside Urine Glucose Negative Bedside Urine Bilirubin - Negative Bedside Urine Ketone - Negative Urine Specific [place] 1.010 Bedside Urine Occult Blood +/- Bedside Urine pH 7.0 Bedside Urine Protein +/- 15 Bedside Urine Urobilinogen - Negative Bedside Urine Nitrite - Negative Bedside Urine Leukocytes - Negative Esterase Discharge Plan Departure Patient Disposition: Home Clinical Impression: Breath shortness, Productive cough, Expiratory wheezing, Chest wall pain, Breast nodule, Nodule of right lung Abdominal pain Qualifiers: Abdominal location: generalized Qualified Code(s): R10.84 - Generalized abdominal pain Pneumonia Qualifiers: Pneumonia type: due to unspecified organism Laterality: unspecified laterality Lung location: unspecified part of lung Qualified Code(s): J18.9 - Pneumonia, unspecified organism Hypertension Qualifiers: Hypertension type: essential hypertension Qualified Code(s): I10 - Essential (primary) hypertension Discharge Date/Time: 05/02/20 15:52 Instructions: DI for Asthma -- Adult, DI for Pneumonia -- Adult, DI for Abdominal Pain-Adult, Coronavirus Disease 2019 Activity Restrictions/Additional Instructions: 1. You need to drink between 2 and 4 L of fluid per day to keep yourself hydrated. 2. You need to follow-up with your family doctor in be re-evaluated in 48-72 hours if not improved. 3. Your CT scan revealed that you have ground-glass infiltrates in the bases of both lungs which looks similar who [place] it. This may represent a pneumonia with your persistent cough. 4. Your rapid Covid test did not detect the Covid. The send out Covid test has been ordered and the results will be within 48-72 hours. The hospital will call you with these results. You need to be in quarantine during this time. Until you are called with the results. 5. If you develop worsening shortness of breath, worsening cough, chest pain, palpitations dizziness feelings of passing out you need to return to the emergency department. Otherwise you follow-up with your primary care physician. 6. Your CT scan revealed a nodule in your left breast and a nodule in your right lung which needs to be followed up with by your primary care physician 7. Take the antibiotic Doxyycycline 100 mg per day until gone. 8. Take the prednisone per day until gone. 9. Use DuoNeb in your nebulizer every 4 hours as needed for cough, wheezing, and shortness of breath. 10. In between using your DuoNeb you can use albuterol every 2-4 hours as needed for wheezing and shortness of breath. 11. Used zofran 4mg, 1-2 tabs as needed every 6 hours for nausea and vomiting. Prescriptions: New doxycycline hyclate 100 mg capsule 100 mg PO BID Qty: 20 RF: 0 albuterol sulfate 2.5 mg /3 mL (0.083 %) solution for nebulization 2.5 mg INHALATION Q4H PRN (Reason: shortness of breath or wheezing) Qty: 90 RF: 0 prednisone 20 mg tablet 60 mg PO DAILY Qty: 15 RF: 0 ipratropium-albuterol 0.5 mg-3 mg(2.5 mg base)/3 mL solution for nebulization 3 ml INHALATION Q4H PRN (Reason: shortness of breath or wheezing) Qty: 90 RF: 0 Continued losartan 100 MG tablet 100 mg PO DAILY Qty: 0 RF: 0 methocarbamol 500 mg tablet 500 mg PO DIRECTED RF: 0 Spiriva with HandiHaler 18 mcg capsule, w/inhalation device 18 mcg INHALATION DAILY RF: 0 loperamide [Imodium A-D] 1 mg/7.5 mL liquid 2 mg PO Q2-4H PRN (Reason: loose stool) Qty: 120 RF: 0 montelukast 10 mg tablet 10 mg PO DAILY RF: 0 Discontinued albuterol sulfate [ProAir HFA] 90 mcg/actuation HFA aerosol inhaler 1 puff Inhalation PRN PRN (Reason: Shortness Of Breath) RF: 0 No Action fluticasone propion-salmeterol [Advair Diskus] 500-50 mcg/dose blister with device 1 puff Inhalation BID RF: 0 Referrals: Glendy Armando MD [Primary Care Provider] - Stand Alone Forms: Work Release Note
[2020-05-02] MEDS: ALBUTEROL HFA 60 PUFF/8 GM INH INH (09:45)
[2020-05-02 10:04] LABS: Add Manual Diff / Slide Review NO; Basophils Absolute Auto 100 /uL (0-100); Eosinophils Absolute Auto 600 /uL (0-450); Eosinophils Percent Auto 6.5 % (2-4); Hematocrit 41.4 % (36-46); Hemoglobin 13.9 g/dL (12.0-16.0); Lymphocytes Absolute Auto 2800 /uL (1100-4500); Lymphocytes Percent Auto 28.4 % (25-40); Mean Corpuscular HGB Conc 33.6 % (30-36); Mean Corpuscular Hemoglobin 28.6 PG (26-34); Mean Corpuscular Volume 85.1 fL (80-100); Monocytes Absolute Auto 600 /uL (0-900); Monocytes Percent Auto 5.9 % (3-14); Neutrophils Absolute Auto 5700 /uL (1500-7000); Neutrophils Percent Auto 58.2 % (50-75); Platelet Count 295 X10^3/uL (150-400); Red Blood Cell Count 4.86 X10^6/uL (4.0-5.2); Red Cell Distribution Width 13.9 % (11.6-14.8); White Blood Cell Count 9.9 X10^3/uL (4.5-11.0)
--- NOTE | 2020-05-02 10:07 | DI.CT.S_ITS ---
PROCEDURE: CT ANGIO CHEST PE PROTOCOL INDICATIONS: sob, chills, chest / abd pain TECHNIQUE: After the administration of intravenous contrast, 2 mm thick sections acquired from the pulmonary apices to the posterior costophrenic angles. 3-dimensional maximum intensity projection (MIP) coronal and sagittal reformats were then acquired through the thorax. For radiation dose reduction, the following was used: automated exposure control, adjustment of mA and/or kV according to patient size. COMPARISON: None. FINDINGS: Image quality: Excellent. Pulmonary arteries: Pulmonary arteries are normal in size, and demonstrate no intraluminal filling defects to suggest central pulmonary embolism. Lungs and pleura: Very subtle bilateral patchy groundglass opacities. Subpleural pulmonary nodule, posterior segment of right upper lobe measuring 6 mm in diameter. Reference image 110/5. No pleural effusions or pneumothorax. Central and peripheral airways are patent. Mediastinum: Heart size is normal, without pericardial effusion. No mediastinal or hilar adenopathy. Incidental note is made of numerous tiny collateral opacified vessels in the anterior mediastinum which likely represent tiny venous collateral vessels. No associated mass. The left arm vein was injected for the study. There is no left subclavian or brachiocephalic venous stenosis identified. Thoracic aorta is normal in caliber and enhancement. Esophagus is normal in caliber, without hiatal hernia. Bones and chest wall: No suspicious bony lesions. Ribs and thoracic spine appear intact throughout. Thyroid gland is unremarkable. No axillary or supraclavicular adenopathy. 1.2 cm lobulated soft tissue density, left breast, image 68/4. It has a Hounsfield measurement of approximately 52 and a maximum diameter of approximately 1.3 cm. Abdomen: Visualized upper abdominal solid organs appear normal in the early arterial phase of enhancement. IMPRESSION: 1. No evidence acute pulmonary emboli. 2. Very subtle patchy bilateral groundglass opacities, uncertain significance. This may represent the presence of a acute inflammatory process, nonspecific. 3. 1.3 cm maximum diameter left breast nodule. 4. Incidental 6 mm right pulmonary nodule. Comment: If the left breast lesion has not previously been worked up, would recommend diagnostic mammography and left breast ultrasound on a routine outpatient basis. Additional comment: Please refer to the chart below for pulmonary nodule followup recommendations. Fleischner Society criteria for SOLID lung nodule followup. Nodule size (mm)Low-risk patientHigh-risk patient<6 (single or multiple)No routine followup.Optional CT at 12 months. 6-8 (single or multiple)CT at 6-12 months, then optional CT at 18-24 mo.CT at 6-12 months, then CT at 18-24 months. >8 (single)CT at 3 months, PET-CT, or biopsy. Same as for low-risk pts. >8 (multiple)CT at 3-6 months, then optional CT at 18-24 mo.CT at 3-6 months, then CT at 18-24 months. Fleischner Society criteria for SUB-SOLID lung nodule followup. Solitary pure ground-glass nodules<6 mm (ground glass or part solid)No followup needed. 6 mm or larger (ground glass)CT at 6-12 months to confirm persistence, then CT every 2 years until 5 years.6 mm or larger (part solid)CT at 3-6 months to confirm persistence, then annual CT until 5 years if unchanged and solid component remains <6 mm. Multiple sub-solid nodules<6 mmCT at 3-6 months, then CT consider at 2 & 4 years for high risk patients. [address] at 3-6 months. Subsequent management based on most suspicious lesions. Recommendations do not apply to lung cancer screening, patients with immunosuppression, or patients with known primary cancer. Dictated by: Colt Fairbanks M.D. on 05/02/2020 at 10:18 Approved by: Colt Fairbanks M.D. on 05/02/2020 at 10:28
[2020-05-02] MEDS: SODIUM CHLORIDE 0.9% 1,000 ML 1000 ML IV (10:16)
[2020-05-02 10:17] LABS: Lipase 94 U/L (23-300)
[2020-05-02] MEDS: methylPREDNISolone 125 MG/2 ML VIAL IV (10:17)
[2020-05-02] MEDS: MORPHINE 4 MG/ML INJ IV (10:17)
[2020-05-02 10:18] LABS: Lactate (Lactic Acid) 1.1 mmol/L (0.7-2.1)
[2020-05-02] MEDS: MAGNESIUM SULFATE 2 GM/50 ML PIGGYBACK IV (10:18)
[2020-05-02 10:19] LABS: Alanine Aminotransferase 21 IU/L (<35); Albumin 4.3 g/dL (3.5-5.0); Albumin Globulin Ratio 1.3 (1.0-2.8); Alkaline Phosphatase 91 U/L (38-126); Aspartate Aminotransferase 27 IU/L (14-36); BUN Creatinine Ratio 15.6 (6-22); Bilirubin Total 0.5 mg/dL (0.2-1.3); Blood Urea Nitrogen 15 mg/dL (7-17); C-Reactive Protein Quant 0.7 mg/dL (<1.0); Carbon Dioxide 28 mmol/L (22-32); Chloride 106 mmol/L (98-107); Creatine Kinase 107 U/L (30-135); Estimated Glomerular Filt Rate 59.7 mL/min (>60); Globulin 3.4 g/dL (1.7-4.1); Glucose 111 mg/dL (70-100); HEMOLYSIS < 15 (0-50); Lactate Dehydrogenase 512 U/L (313-618); Potassium 3.2 mmol/L (3.4-5.1); Sodium 140 mmol/L (137-145); Total Protein 7.7 g/dL (6.3-8.2)
[2020-05-02] MEDS: ONDANSETRON 4 MG/2 ML INJ IV (10:19)
[2020-05-02 10:29] LABS: NT-proBNP (BNP-Adult 18+) 52 pg/mL (<125); Troponin I < 0.012 ng/mL (0.01-0.034)
[2020-05-02 10:32] LABS: CKMB % Relative Index 0.2 % (1.5-5.0); Creatine Kinase MB < 0.22 ng/mL (<2.37)
[2020-05-02 10:33] LABS: D Dimer < 200 ng/mL (<230); Procalcitonin < 0.05 ng/mL (<0.5)
--- NOTE | 2020-05-02 10:44 | DI.CT.S_ITS ---
PROCEDURE: CT ABDOMEN PELVIS W CON INDICATIONS: diffuse lower abdominal pain with tenderness TECHNIQUE: After the administration of intravenous contrast, 5 mm thick sections acquired from the diaphragm to the symphysis. 5 mm coronal and sagittal reformats were acquired. For radiation dose reduction, the following was used: automated exposure control, adjustment of mA and/or kV according to patient size. COMPARISON: CT angiogram of the chest from the same day. FINDINGS: Image quality: Excellent. ABDOMEN: Lung bases: Lung bases are clear. Heart size is normal. Solid organs: Liver is normal in size and enhancement. Gallbladder is unremarkable. Biliary system is non dilated. Pancreas enhances normally. Spleen is normal in size and enhancement. No adrenal nodules. Kidneys demonstrate normal size and enhancement, without hydronephrosis. Peritoneum and bowel: Bowel loops demonstrate normal wall thickness and caliber. No free fluid or air. Nodes and vessels: No retroperitoneal or mesenteric adenopathy by size criteria. Aorta and inferior vena cava are normal in size. Miscellaneous: No ventral hernias. On the most superior image obtained, the inferior aspect of a nodular density in the left breast is noted. It is more fully evaluated on the CT angiogram of the chest, and it measures approximately 1.2 cm. It has Hounsfield measurement of approximately 52. PELVIS: Genitourinary: Bladder wall thickness is normal. Miscellaneous: No inguinal hernias or adenopathy. There is a 1 cm submucosal hypervascular fundal uterine fibroid. Bones: No suspicious bony lesions. No vertebral body compression fractures. IMPRESSION: 1. No evidence of acute abdominal process. 2. There is a lobulated soft tissue density lesion in the left breast measuring 1.2 cm in diameter. 3. 1 cm hypervascular submucosal fundal fibroid. Comment: If the left breast lesion has not been worked up in the past, would recommend nonemergent diagnostic mammography and ultrasound of the left breast lesion. Dictated by: Colt Fairbanks M.D. on 05/02/2020 at 9:57 Approved by: Colt Fairbanks M.D. on 05/02/2020 at 10:07
[2020-05-02] MEDS: ALBUTEROL/IPRATROPIUM MDI 2 PUFF INH (10:48)
[2020-05-02 10:52] LABS: Ferritin 37 ng/mL (11-264)
[2020-05-02 11:06] LABS: COVID19 -Nasal RAPID Negative (Negative)
[2020-05-02] MEDS: SODIUM CHLORIDE 0.9% 1,000 ML 125 ML IV (11:52)
[2020-05-02 11:53] LABS: Bacteria Urine None Seen
[2020-05-02 12:00] LABS: Culture Indicated Urine Cult Not Indicated; RBC Urine 1-5/HPF (0-5/HPF); Squamous Epithelial Cell Urine 0-1 /HPF (0-5/HPF); WBC Urine 0-1/HPF (0-5/HPF)
[2020-05-02] MEDS: levoFLOXacin 750 MG/150 ML PIGGYBACK 100 MG IV (12:53)
[2020-05-02 13:18] LABS: COVID19 -Nasal RAPID Negative (Negative)
[2020-05-02] MEDS: HYDRALAZINE 20 MG/ML VIAL 10 MG IV (14:09)
[2020-05-02] MEDS: MAG HYDROX/ALUMINUM/SIMETH SUS 20 ML, LIDOCAINE VISCOUS 2% 15 ML PO (15:02)
== END 2020-05-02 15:52 | disposition home or self-care (01) ==
PROVIDERS: Emergency Provider Emergency Medicine; PCP Internal Medicine
DX: R06.02 Shortness of breath (principal); J45.909 Unspecified asthma, uncomplicated; R07.89 Other chest pain; R05 Cough; N63.0 Unspecified lump in unspecified breast; R91.1 Solitary pulmonary nodule; R10.84 Generalized abdominal pain; J18.9 Pneumonia, unspecified organism; I10 Essential (primary) hypertension; Z03.818 Encounter for observation for suspected exposure to other biological agents ruled out
CPT/HCPCS: 36415; 71275; 74177; 80053; 81003; 81015; 82550; 82553; 82728; 83605; 83615; 83690; 83880; 84145; 84484; 85025; 85379; 86140; 87635; 93005; 94640; 96361; 96365; 96366; 96375; 99285; J0360; J1956; J2270; J2405; J2930

== ENCOUNTER → 2020-06-22 09:31 | Outpatient (CLI) | payer OTHER, SELFPAY ==
--- NOTE | 2020-06-22 | DI.MG.S_ITS ---
BILATERAL DIGITAL SCREENING MAMMOGRAM 3D/2D WITH CAD: 06/22/2020 CLINICAL: Routine screening. Family history of breast cancer. Comparison is made to exams dated: 02/04/2019 mammogram, 06/28/2018 mammogram, and 01/13/2016 mammogram - [facility]. There are scattered fibroglandular elements in both breasts. Current study was also evaluated with a Computer Aided Detection (CAD) system. There is a 1.2 cm oval equal density asymmetry in the left breast posterior depth superior region seen on the mediolateral oblique view only. There also is a 0.6 cm oval equal density asymmetry in the left breast posterior depth central to the nipple seen on the mediolateral oblique view only. No other significant masses, calcifications, or other findings are seen in either breast. IMPRESSION: INCOMPLETE: NEEDS ADDITIONAL IMAGING EVALUATION The 1.2 cm oval equal density asymmetry in the left breast posterior depth superior region seen on the mediolateral oblique view only is indeterminate. Additional views with possible ultrasound are recommended. The 0.6 cm oval equal density asymmetry in the left breast posterior depth central to the nipple seen on the mediolateral oblique view only is indeterminate. Additional views with possible ultrasound are recommended. This exam was interpreted at Station ID: [id number]. NOTE: For mammograms, a report in lay terms will be sent to the patient. Approximately 15% of breast malignancies will not be visualized mammographically. In the management of a palpable breast mass, a negative mammogram must not discourage biopsy of a clinically suspicious lesion. Electronically Signed By: Cristian scott/steve:06/22/2020 19:53:17 letter sent: Additional Imaging Needed ACR BI-RADS Category 0: Incomplete [id number]
== END ==
PROVIDERS: PCP Internal Medicine; Referring Provider Internal Medicine; Visit Provider Internal Medicine
DX: Z12.31 Encounter for screening mammogram for malignant neoplasm of breast (principal); Z80.3 Family history of malignant neoplasm of breast
CPT/HCPCS: 77063; 77067

== ENCOUNTER → 2020-07-22 14:52 | Outpatient (CLI) | payer OTHER, SELFPAY ==
--- NOTE | 2020-07-22 | DI.MG.S_ITS ---
UNILATERAL LEFT DIGITAL DIAGNOSTIC MAMMOGRAM 3D/2D WITH ADDITIONAL VIEWS: 07/22/2020 CLINICAL: Additional evaluation requested from prior study. Comparison is made to exams dated: 06/22/2020 mammogram - [facility], 02/04/2019 mammogram, 01/13/2016 mammogram, 11/15/2013 mammogram, 12/31/2014 mammogram, and 02/04/2019 ultrasound - [facility]. There are scattered fibroglandular elements in left breast. There is a 1.2 cm oval equal density asymmetry in the left breast posterior depth superior region seen on the mediolateral oblique view only. This is confirmed on today's additional views. This is not significantly changed compared to mammograms dating back to 2013. There also is a 0.7 cm oval equal density asymmetry in the left breast posterior depth central to the nipple seen on the mediolateral oblique view only. This is also confirmed on today's additional views. This is not significantly changed compared to mammograms dating back to 2013. These correlated with benign appearing masses seen on comparison ultrasound of 02/04/2019. No other significant masses or calcifications are seen in the breast. IMPRESSION: INCOMPLETE: NEEDS ADDITIONAL IMAGING EVALUATION The 1.2 cm oval equal density asymmetry in the left breast posterior depth superior region seen on the mediolateral oblique view only likely represents a fibroadenoma but remains indeterminate. An ultrasound is recommended for further evaluation and is scheduled to immediately follow this study. The 0.7 cm oval equal density asymmetry in the left breast posterior depth central to the nipple seen on the mediolateral oblique view only likely represents a fibroadenoma but remains indeterminate. An ultrasound is recommended for further evaluation and is scheduled to immediately follow this study. This exam was interpreted at Station ID: [id number]. NOTE: For mammograms, a report in lay terms will be sent to the patient. Approximately 15% of breast malignancies will not be visualized mammographically. In the management of a palpable breast mass, a negative mammogram must not discourage biopsy of a clinically suspicious lesion. Electronically Signed By: Cristian Greco M.D. aty/:07/22/2020 15:34:54 ACR BI-RADS Category 0: Incomplete [id number]
--- NOTE | 2020-07-22 | DI.US.S_ITS ---
LIMITED ULTRASOUND OF LEFT BREAST: 07/22/2020 CLINICAL: Patient returns today to evaluate densities in the left breast. Comparison is made to exams dated: 07/22/2020 mammogram, 06/22/2020 mammogram - [facility], 02/04/2019 mammogram, and 02/04/2019 ultrasound - [facility]. Color flow and real-time ultrasound of the left breast 4 o'clock and 6 o'clock regions were performed. Smith scale images of the real-time examination were reviewed. There is a 1.7 cm x 1 cm x 1.5 cm wider than tall oval mass with minimal angular margin in the left breast at 4 o'clock posterior depth 3.5 cm from the nipple. This oval mass is hypoechoic. This abnormality is stable to slightly more prominent in size, and correlates with mammography findings. Color flow imaging demonstrates that there is an adjacent vascularity. There also is a 0.9 cm x 0.8 cm x 0.5 cm oval mass in the left breast at 6 o'clock middle depth 3 cm from the nipple. This oval mass is hypoechoic. This abnormality also appears stable to slightly more prominent. IMPRESSION: PROBABLY BENIGN The 1.7 cm x 1 cm x 1.5 cm wider than tall oval mass in the left breast at 4 o'clock posterior depth most likely is a fibroadenoma and is probably benign. The 0.9 cm x 0.8 cm x 0.5 cm oval mass in the left breast at 6 o'clock middle depth most likely is a fibroadenoma and is probably benign. A follow-up left mammogram and an ultrasound in 6 months is recommended to demonstrate stability. Findings and recommendations were conveyed to the patient during today's visit. This exam was interpreted at Station ID: [id number]. Electronically Signed By: Cristian Greco M.D. aty/:07/22/2020 16:09:44 letter sent: Followup Recommended Ultrasound BI-RADS: 3 Probably benign
== END ==
PROVIDERS: PCP Internal Medicine; Referring Provider Internal Medicine; Visit Provider Internal Medicine
DX: R92.8 Other abnormal and inconclusive findings on diagnostic imaging of breast (principal); N63.23 Unspecified lump in the left breast, lower outer quadrant; N63.25 Unspecified lump in the left breast, overlapping quadrants
CPT/HCPCS: 76642; 77065; G0279

== ENCOUNTER 2021-02-19 07:47 | Emergency (ER) | payer OTHER, SELFPAY ==
[2021-02-19] VITALS (9 sets, daily range): BP systolic 141–179; BP diastolic 72–95; PULSE 61–69; RESP 17–24; TEMP 36.1; O2SAT 93–98
--- NOTE | 2021-02-19 08:09 | ED_ITS ---
HPI - Abdominal Pain General Chief Complaint: Abdominal Pain Stated Complaint: abd pain/sob x2 days Time Seen by Provider: 02/19/21 08:09 Source: patient and family Mode of arrival: Ambulatory Limitations: no limitations History of Present Illness HPI narrative: This is a 61-year-old female comes in with complaint of shortness of breath and chest tightness. Patient states that she has had worsening symptoms which has not been responding to her albuterol nebulized. Patient states she has been using her albuterol every 2 hours. Her last albuterol was at 6:00 a.m.. Patient states it feels tight in her chest she feels like she is not moving any air in that she feels wheezy. She denies any fevers or chills. She has had a cough with sticky thick clear productive sputum although she states this is similar to her baseline. She denies any nasal congestion. She denies pain in her chest but does have discomfort from the tightness. She does feel short of breath. She denies any nausea, no vomiting. She states she has, no abdominal pain for the past 2 as well as chronic back pain for the past year which has not changed. She has noted some increased swelling in her lower extremities. Patient states that she has a history of asthma, she uses Advair twice daily as well as Spiriva once daily. She is on losartan for hypertension. She is not on any regular anticoagulant. Patient does not have any known cardiac history. Patient is accompanied by her significant other. Patient does not use any tobacco. Related Data Home Medications Medication Instructions Recorded Confirmed losartan 100 mg PO DAILY #0 10/27/17 05/02/20 fluticasone propion-salmeterol 1 puff INHALATION BID 10/26/18 05/02/20 [Advair Diskus] montelukast 10 mg PO DAILY 10/26/18 05/02/20 Spiriva with HandiHaler 18 mcg INHALATION DAILY 08/28/19 05/02/20 methocarbamol 500 mg PO DIRECTED 08/28/19 05/02/20 Previous Rx's Medication Instructions Recorded loperamide [Imodium A-D] 2 mg PO Q2-4H PRN #120 ml 08/28/19 albuterol sulfate 2.5 mg INHALATION Q4H PRN #90 ml 05/02/20 doxycycline hyclate 100 mg PO BID #20 cap 05/02/20 ipratropium-albuterol 3 ml INHALATION Q4H PRN #90 ml 05/02/20 prednisone 60 mg PO DAILY #15 tab 05/02/20 prednisone 50 mg PO DAILY #5 tab 02/19/21 Allergies Allergy/AdvReac Type Severity Reaction Status Date / Time aspirin [ASPIRIN] Allergy Unknown MAKES HER Verified 02/19/21 08:20 BLEED Review of Systems Review of Systems ROS Unobtainable: All systems reviewed & are unremarkable except as noted in HPI and below Patient History Medical History (Updated 02/19/21 @ 11:22 by Stephanie Martin DO) Asthma exacerbation Bronchitis Surgical History H/O tubal ligation Social History Smoking Status: Never smoker Smoking Status: Never smoker alcohol intake frequency: holidays/special occasions only Substance Use Type: does not use Exam Narrative Exam Narrative: GEN: well nourished, well appearing female, alert and oriented x 3, patient appears to be in mild distress. HEENT: Atraumatic, pupils are equal round reactive to light, extraocular movements are intact, nares are clear. HEART: Regular rate and rhythm without murmur, clicks, rubs. Pulses are equal in lower extremities. No edema noted bilaterally. LUNGS:Lungs with bilateral expiratory wheezes anteriorly, no rales, positive bilateral crackles noted posteriorly, chest moves symmetrically, no flail chest. Patient speaks in 5-6 word sentences. ABD:bowel sounds normal, soft, non-tender, no guarding, rebound, rigidity, no masses noted, no hepatosplenomegaly :No CVA tenderness MSCL: Non-tender, no muscle atrophy, muscles strength 5/5 upper and lower extremities, full range of motion, normal gait NEURO:CN 2-12 intact, sensation normal SKIN: No rash, erythema or other skin changes noted. Initial Vital Signs Initial Vital Signs: Vital Signs Temperature 97.0 F L 02/19/21 08:17 Pulse Rate 69 02/19/21 08:17 Respiratory Rate 20 02/19/21 08:17 Blood Pressure 141/72 H 02/19/21 08:17 Pulse Oximetry 97 02/19/21 08:17 Course Orders Ordered: Discontinued Medications Albuterol/Ipratropium (Albuterol/Ipratropium 3 Ml Ampul) 3 ml INH NOW ONE Stop: 02/19/21 08:20 Albuterol/Ipratropium (Albuterol/Ipratropium 3 Ml Ampul) 3 ml INH NOW ONE Stop: 02/19/21 10:28 Last Admin: 02/19/21 10:33 Dose: 3 ml Documented by: TREY Furosemide (Furosemide 40 Mg/4 Ml Vial) 40 mg IV NOW ONE Stop: 02/19/21 08:20 Last Admin: 02/19/21 09:06 Dose: 40 mg Documented by: DORA Magnesium Sulfate (Magnesium Sulfate) 2 gm in 50 mls @ 150 mls/hr IV NOW ONE Stop: 02/19/21 08:45 Last Infusion: 02/19/21 10:03 Dose: 0 mls/hr Documented by: DORA Cosigned by: SANTINO Admin: 02/19/21 09:06 Dose: 150 mls/hr Documented by: DORA Cosigned by: SANTINO Methylprednisolone (Methylprednisolone 125 Mg/2 Ml Vial) 125 mg IV NOW ONE Stop: 02/19/21 08:20 Last Admin: 02/19/21 09:05 Dose: 125 mg Documented by: DORA Reevaluation(s) Reevaluation #1: Patient has not had breathing trimming it while we are waiting for her COVID swab. I did review the rest of her labs. Patient states that she does find herself short of breath at work which she often will go up 3 flights of stairs carrying 50 lb at a time. She states she has been using her nebulizer q.2 hours regularly. Time: 09:40 Reevaluation #2: Patient feeling improved after nebulized breathing treatment and wheeze has resolved. Patient and I discussed today's finding. She feels she likely needs some oral steroids. I agree but did discuss based on her age and her history of hypertension if she continues to have wheezing that does not improve with steroids she probably needs some additional follow-up for further evaluation of potential cardiac causes although there are no clear findings today suggesting that she has a cardiac origin. Time: 11:20 Vital Signs Vital signs: Vital Signs - 8 hr 02/19/21 11:00 02/19/21 11:30 Pulse Rate 61 64 Respiratory Rate 22 17 Blood Pressure 179/95 H 172/85 H Pulse Oximetry 95 93 MDM - Abdominal Pain Lab Data Attestation: I reviewed the patient's lab results. Result diagrams: 02/19/21 08:50 02/19/21 08:50 Labs: Lab Results 02/19/21 02/19/21 02/19/21 Range/Units 08:50 08:50 08:50 WBC 9.8 (4.5-11.0) X10^3/uL RBC 5.23 H (4.0-5.2) X10^6/uL Hgb 14.9 (12.0-16.0) g/dL Hct 44.0 (36-46) % MCV 84.2 (80-100) fL MCH 28.6 (26-34) PG MCHC 33.9 (30-36) % RDW 14.3 (11.6-14.8) % Plt Count 258 (150-400) X10^3/uL Neut % (Auto) 61.2 (50-75) % Lymph % (Auto) 27.7 (25-40) % [place]isle % (Auto) 4.7 (3-14) % Eos % (Auto) 5.6 H (2-4) % Baso % (Auto) 0.8 (0-2) % Neut # (Auto) 6000 (8013-5108) /uL Lymph # (Auto) 2700 (5375-1167) /uL [place] # (Auto) 500 (0-900) /uL Eos # (Auto) 600 H (0-450) /uL Baso # (Auto) 100 (0-100) /uL PT 11.3 (10.1-12.7) SECONDS INR 1.0 (0.9-1.3) APTT 37 H D (26.4-36.2) SECONDS D-Dimer < 200 (<230) ng/mL Sodium (137-145) mmol/L Potassium (3.4-5.1) mmol/L Chloride (98-107) mmol/L Carbon Dioxide (22-32) mmol/L BUN (7-17) mg/dL Creatinine (0.52-1.04) mg/dL Estimated GFR (>60) mL/min BUN/Creatinine Ratio (6-22) Glucose (70-100) mg/dL Lactate (0.7-2.1) mmol/L Calcium (8.4-10.2) mg/dL Magnesium (1.6-2.3) mg/dL Total Bilirubin (0.2-1.3) mg/dL AST (14-36) IU/L ALT (<35) IU/L Alkaline Phosphatase (38-126) U/L Total Creatine Kinase (30-135) U/L CK-MB (CK-2) CK-MB (CK-2) Rel Index Troponin I (0.01-0.034) ng/mL NT-Pro-B Natriuret Pep 180 H (<125) pg/mL Total Protein (6.3-8.2) g/dL Albumin (3.5-5.0) g/dL Globulin (1.7-4.1) g/dL Albumin/Globulin Ratio (1.0-2.8) Lipase (23-300) U/L Procalcitonin 0.07 (<0.5) ng/mL SARS-CoV-2 (PCR) (Negative) 02/19/21 02/19/21 02/19/21 Range/Units 08:50 08:50 08:50 WBC (4.5-11.0) X10^3/uL RBC (4.0-5.2) X10^6/uL Hgb (12.0-16.0) g/dL Hct (36-46) % MCV (80-100) fL MCH (26-34) PG MCHC (30-36) % RDW (11.6-14.8) % Plt Count (150-400) X10^3/uL Neut % (Auto) (50-75) % Lymph % (Auto) (25-40) % Carlisle % (Auto) (3-14) % Eos % (Auto) (2-4) % Baso % (Auto) (0-2) % Neut # (Auto) (7879-3612) /uL Lymph # (Auto) (5534-1128) /uL Carlisle # (Auto) (0-900) /uL Eos # (Auto) (0-450) /uL Baso # (Auto) (0-100) /uL PT (10.1-12.7) SECONDS INR (0.9-1.3) APTT (26.4-36.2) SECONDS D-Dimer (<230) ng/mL Sodium 140 (137-145) mmol/L Potassium 3.9 (3.4-5.1) mmol/L Chloride 107 (98-107) mmol/L Carbon Dioxide 25 (22-32) mmol/L BUN 19 H (7-17) mg/dL Creatinine 0.70 (0.52-1.04) mg/dL Estimated GFR > 60.0 (>60) mL/min BUN/Creatinine Ratio 27.1 H (6-22) Glucose 115 H (70-100) mg/dL Lactate 0.9 (0.7-2.1) mmol/L Calcium 9.5 (8.4-10.2) mg/dL Magnesium 2.1 (1.6-2.3) mg/dL Total Bilirubin 0.8 (0.2-1.3) mg/dL AST 27 (14-36) IU/L ALT 20 (<35) IU/L Alkaline Phosphatase 114 (38-126) U/L Total Creatine Kinase 59 (30-135) U/L CK-MB (CK-2) TNP CK-MB (CK-2) Rel Index TNP Troponin I < 0.012 (0.01-0.034) ng/mL NT-Pro-B Natriuret Pep (<125) pg/mL Total Protein 7.9 (6.3-8.2) g/dL Albumin 4.5 (3.5-5.0) g/dL Globulin 3.4 (1.7-4.1) g/dL Albumin/Globulin Ratio 1.3 (1.0-2.8) Lipase 71 (23-300) U/L Procalcitonin (<0.5) ng/mL SARS-CoV-2 (PCR) (Negative) 02/19/21 Range/Units 08:50 WBC (4.5-11.0) X10^3/uL RBC (4.0-5.2) X10^6/uL Hgb (12.0-16.0) g/dL Hct (36-46) % MCV (80-100) fL MCH (26-34) PG MCHC (30-36) % RDW (11.6-14.8) % Plt Count (150-400) X10^3/uL Neut % (Auto) (50-75) % Lymph % (Auto) (25-40) % Carlisle % (Auto) (3-14) % Eos % (Auto) (2-4) % Baso % (Auto) (0-2) % Neut # (Auto) (6627-5006) /uL Lymph # (Auto) (8533-1212) /uL Carlisle # (Auto) (0-900) /uL Eos # (Auto) (0-450) /uL Baso # (Auto) (0-100) /uL PT (10.1-12.7) SECONDS INR (0.9-1.3) APTT (26.4-36.2) SECONDS D-Dimer (<230) ng/mL Sodium (137-145) mmol/L Potassium (3.4-5.1) mmol/L Chloride (98-107) mmol/L Carbon Dioxide (22-32) mmol/L BUN (7-17) mg/dL Creatinine (0.52-1.04) mg/dL Estimated GFR (>60) mL/min BUN/Creatinine Ratio (6-22) Glucose (70-100) mg/dL Lactate (0.7-2.1) mmol/L Calcium (8.4-10.2) mg/dL Magnesium (1.6-2.3) mg/dL Total Bilirubin (0.2-1.3) mg/dL AST (14-36) IU/L ALT (<35) IU/L Alkaline Phosphatase (38-126) U/L Total Creatine Kinase (30-135) U/L CK-MB (CK-2) CK-MB (CK-2) Rel Index Troponin I (0.01-0.034) ng/mL NT-Pro-B Natriuret Pep (<125) pg/mL Total Protein (6.3-8.2) g/dL Albumin (3.5-5.0) g/dL Globulin (1.7-4.1) g/dL Albumin/Globulin Ratio (1.0-2.8) Lipase (23-300) U/L Procalcitonin (<0.5) ng/mL SARS-CoV-2 (PCR) Negative (Negative) Point of care testing: Urine Dip Bedside Urine Glucose Negative Bedside Urine Bilirubin - Negative Bedside Urine Ketone - Negative Urine Specific [place] 1.015 Bedside Urine Occult Blood - Negative Bedside Urine pH 6.0 Bedside Urine Protein - Negative Bedside Urine Urobilinogen - Negative Bedside Urine Nitrite - Negative Bedside Urine Leukocytes - Negative Esterase Imaging Data Chest x-ray: Radiologist's Impression: Jenni Vidales E 61 F 1960 [facility] [place] [address] [id number] ReportSigned Patient: Jenni Vidales EMR#: [id number]: [id number]:[id number]/Sex: 61 / FDate of Service: 02/19/21Loc: EDAccession Number: [id number] Procedure: XR chest 1V Ordering Provider: Stephanie Martin D.O. PROCEDURE: XR CHEST 1V INDICATIONS: dyspnea TECHNIQUE: One view of the chest was acquired. COMPARISON: [facility], , XR CHEST 2V, 01/15/2019, 9:57. FINDINGS: Heart size is upper limits of normal. Low lung volumes accentuate pulmonary interstitium and heart size. Lungs and pleural space are clear. Pulmonary vasculature unremarkable. Osseous structures unremarkable. IMPRESSION: No acute cardiopulmonary findings Heart size upper limits of normal. No vascular congestion. Dictated by: Charles Cannon M.D. on 02/19/2021 at 9:38 Approved by: Charles Cannon M.D. on 02/19/2021 at 9:39 ECG Data Attestation: I personally reviewed and interpreted this ECG as follows: Prior ECG tracings: available for review Interpretation: Normal sinus rhythm with T-wave abnormality, patient has T-wave changes in 1 aVL which are present on his prior EKG from 05/02/2020. No elevation is appreciated but patient does appear to have some biphasic T-waves in V3 through V6 which does appear changed from prior. MDM Narrative Medical decision making narrative: This is a 61-year-old female comes in with complaint of wheezing that is intermittent but worse today. Patient states she is typically wheezy when she ambulates at work sometimes going up 3 flights of stairs any been caring 50 lb at a time. She does have a history of asthma she is on Spiriva as well as Advair which she states she has been taking regularly. She is also medication for hypertension. She states she does seasonally seem to be worse this time of year. She denies any fevers, chills or infectious type symptoms. She has not had any chest pressure or pain seems consistent with cardiac origin. Patient was also given Lasix a she had some mild crackles on exam. Patient's labs show, BUN of 19 but with a normal troponin and a BMP of 180. Patient's procalcitonin is negative. Chest x-ray does not show any acute findings. With no acute EKG findings. A pulmonary nodule on prior CT but this appears to be 6 mm in size and patient and familiy are both aware of and it is being monitored. Patient requesting a prescription for prednisone which I think is appropriate treatment. Plan to have her continue with her Advair, Spiriva and we discussed if she is continuing to require albuterol regularly she needs to either follow up with her primary care physician or return here if she is acutely worsening for further evaluation. Discharge Plan Departure Patient Disposition: Home Clinical Impression: Dyspnea, Asthma exacerbation Instructions: DI for Shortness of Breath Activity Restrictions/Additional Instructions: Follow up with your physician this week for recheck. If your symptoms are not improving after steroids discussed with your physician if they need to evaluate with stress testing or have further evaluation of why you are having continuous difficulty with her breathing. Take steroids once daily until gone. Your prescription was sent to the [facility] pharmacy at the [facility]. Continue home medications as prescribed. Please return for fevers, new or worsening chest pain, shortness of breath, passing out, persistent vomiting, new swelling in her extremities or other new or concerning symptoms. Prescriptions: New prednisone 50 mg tablet 50 mg PO DAILY Qty: 5 RF: 0 No Action losartan 100 MG tablet 100 mg PO DAILY Qty: 0 RF: 0 methocarbamol 500 mg tablet 500 mg PO DIRECTED RF: 0 Spiriva with HandiHaler 18 mcg capsule, w/inhalation device 18 mcg INHALATION DAILY RF: 0 loperamide [Imodium A-D] 1 mg/7.5 mL liquid 2 mg PO Q2-4H PRN (Reason: loose stool) Qty: 120 RF: 0 doxycycline hyclate 100 mg capsule 100 mg PO BID Qty: 20 RF: 0 albuterol sulfate 2.5 mg /3 mL (0.083 %) solution for nebulization 2.5 mg INHALATION Q4H PRN (Reason: shortness of breath or wheezing) Qty: 90 RF: 0 prednisone 20 mg tablet 60 mg PO DAILY Qty: 15 RF: 0 ipratropium-albuterol 0.5 mg-3 mg(2.5 mg base)/3 mL solution for nebulization 3 ml INHALATION Q4H PRN (Reason: shortness of breath or wheezing) Qty: 90 RF: 0 fluticasone propion-salmeterol [Advair Diskus] 500-50 mcg/dose blister with device 1 puff Inhalation BID RF: 0 montelukast 10 mg tablet 10 mg PO DAILY RF: 0 Referrals: Dia Wilson MD [Primary Care Provider] -
--- NOTE | 2021-02-19 08:20 | DI.RAD.S_ITS ---
PROCEDURE: XR CHEST 1V INDICATIONS: dyspnea TECHNIQUE: One view of the chest was acquired. COMPARISON: [facility], CR, XR CHEST 2V, 01/15/2019, 9:57. FINDINGS: Heart size is upper limits of normal. Low lung volumes accentuate pulmonary interstitium and heart size. Lungs and pleural space are clear. Pulmonary vasculature unremarkable. Osseous structures unremarkable. IMPRESSION: No acute cardiopulmonary findings Heart size upper limits of normal. No vascular congestion. Dictated by: Charles Cannon M.D. on 02/19/2021 at 9:38 Approved by: Charles Cannon M.D. on 02/19/2021 at 9:39
[2021-02-19 08:58] LABS: Add Manual Diff / Slide Review NO; Basophils Absolute Auto 100 /uL (0-100); Basophils Percent Auto 0.8 % (0-2); Eosinophils Absolute Auto 600 /uL (0-450); Eosinophils Percent Auto 5.6 % (2-4); Hemoglobin 14.9 g/dL (12.0-16.0); Lymphocytes Absolute Auto 2700 /uL (1100-4500); Lymphocytes Percent Auto 27.7 % (25-40); Mean Corpuscular HGB Conc 33.9 % (30-36); Mean Corpuscular Hemoglobin 28.6 PG (26-34); Mean Corpuscular Volume 84.2 fL (80-100); Monocytes Absolute Auto 500 /uL (0-900); Monocytes Percent Auto 4.7 % (3-14); Neutrophils Absolute Auto 6000 /uL (1500-7000); Neutrophils Percent Auto 61.2 % (50-75); Platelet Count 258 X10^3/uL (150-400); Red Blood Cell Count 5.23 X10^6/uL (4.0-5.2); Red Cell Distribution Width 14.3 % (11.6-14.8); White Blood Cell Count 9.8 X10^3/uL (4.5-11.0)
[2021-02-19] MEDS: methylPREDNISolone 125 MG/2 ML VIAL IV (09:05)
[2021-02-19 09:06] LABS: Prothrombin Time 11.3 SECONDS (10.1-12.7)
[2021-02-19] MEDS: MAGNESIUM SULFATE 2 GM/50 ML PIGGYBACK IV (09:06)
[2021-02-19] MEDS: FUROSEMIDE 40 MG/4 ML VIAL IV (09:06)
[2021-02-19 09:09] LABS: D Dimer < 200 ng/mL (<230); PTT Partial Thromboplastin Tim 37 SECONDS (26.4-36.2)
[2021-02-19 09:10] LABS: Lipase 71 U/L (23-300)
[2021-02-19 09:12] LABS: Alanine Aminotransferase 20 IU/L (<35); Albumin 4.5 g/dL (3.5-5.0); Albumin Globulin Ratio 1.3 (1.0-2.8); Alkaline Phosphatase 114 U/L (38-126); Aspartate Aminotransferase 27 IU/L (14-36); BUN Creatinine Ratio 27.1 (6-22); Bilirubin Total 0.8 mg/dL (0.2-1.3); Blood Urea Nitrogen 19 mg/dL (7-17); Calcium 9.5 mg/dL (8.4-10.2); Carbon Dioxide 25 mmol/L (22-32); Chloride 107 mmol/L (98-107); Creatine Kinase 59 U/L (30-135); Estimated Glomerular Filt Rate > 60.0 mL/min (>60); Globulin 3.4 g/dL (1.7-4.1); Glucose 115 mg/dL (70-100); HEMOLYSIS < 15 (0-50); Lactate (Lactic Acid) 0.9 mmol/L (0.7-2.1); Magnesium 2.1 mg/dL (1.6-2.3); Potassium 3.9 mmol/L (3.4-5.1); Sodium 140 mmol/L (137-145); Total Protein 7.9 g/dL (6.3-8.2)
[2021-02-19 09:21] LABS: NT-proBNP (BNP-Adult 18+) 180 pg/mL (<125)
[2021-02-19 09:23] LABS: Troponin I < 0.012 ng/mL (0.01-0.034)
[2021-02-19 09:28] LABS: Procalcitonin 0.07 ng/mL (<0.5)
[2021-02-19 10:08] LABS: COVID19 -Nasal RAPID Negative (Negative)
[2021-02-19] MEDS: ALBUTEROL/IPRATROPIUM 3 ML AMPUL INH (10:33)
== END 2021-02-19 12:00 | disposition home or self-care (01) ==
PROVIDERS: Emergency Provider Emergency Medicine; PCP Internal Medicine
DX: J45.901 Unspecified asthma with (acute) exacerbation (principal); R06.00 Dyspnea, unspecified; R06.02 Shortness of breath; Z20.822 Contact with and (suspected) exposure to COVID-19
CPT/HCPCS: 36415; 71045; 80053; 81003; 82550; 83605; 83690; 83735; 83880; 84145; 84484; 85025; 85379; 85610; 85730; 87635; 93005; 93010; 94640; 96361; 96374; 96375; 99284; C9803; J1940; J2930; J3475

== ENCOUNTER 2021-04-19 10:35 | Emergency (ER) | payer OTHER, SELFPAY ==
[2021-04-19 10:53] VITALS: BP 174/79; PULSE 78; RESP 18; TEMP 36.6; O2SAT 99
--- NOTE | 2021-04-19 11:01 | DI.RAD.S_ITS ---
PROCEDURE: XR CHEST 2V INDICATIONS: cough, shortness of breath, wheezing. TECHNIQUE: 2 views of the chest were acquired. COMPARISON: [facility], CR, XR CHEST 1V, 02/19/2021, 8:36. [facility], CR, XR CHEST 2V, 01/15/2019, 9:57. FINDINGS: Surgical changes and devices: None. Lungs and pleura: Lungs are abnormal, with a mild interstitial prominence and also with reduced inspiratory volume. No pleural effusions or pneumothorax. Mediastinum: Mediastinal contours are normal. Heart size is normal. Bones and chest wall: No suspicious bony abnormalities. Soft tissues appear unremarkable. IMPRESSION: The mild interstitial prominence present may be secondary a 2 reduced inspiratory volume but also can be seen in the setting of internal a meyrs injury, atypical pneumonia, hand early acute congestive heart failure. Focal pneumonia is not seen. Dictated by: Scott Gallegos M.D. on 04/19/2021 at 11:29 Approved by: Scott Gallegos M.D. on 04/19/2021 at 11:30
[2021-04-19 12:24] LABS: COVID19 -Nasal RAPID Negative (Negative)
[2021-04-19] MEDS: ALBUTEROL 2.5 MG/3 ML NEB (ADULT) INH ×2 (14:39→15:02)
[2021-04-19 14:46] VITALS: PULSE 78; RESP 22; O2SAT 97
[2021-04-19 15:02] VITALS: PULSE 79; RESP 16; O2SAT 97
--- NOTE | 2021-04-19 15:13 | ED.SOB ---
HPI - SOB/Dyspnea General Chief Complaint: Shortness of Breath/Dyspnea Stated Complaint: SOB, wheezing Time Seen by Provider: 04/19/21 15:12 Source: patient Mode of arrival: Ambulatory Limitations: no limitations History of Present Illness HPI Narrative: This is a 61-year-old female comes in with complaint of shortness of breath and wheezing which been worsened recently. Patient has chronic asthma. She states she typically uses her albuterol quite regularly. She states she is exposed to lot of chemicals at work seems to worsen her asthma. She has seen a printing estimator in the past. She has not had any fevers or chills but states she has had worsening wheezing and shortness of breath. She feels tight in her chest but denies any chest pressure or pain. She has not had any syncope. She denies any vomiting. She denies any nausea. She has been coughing up thick tenacious sticky clear phlegm. She denies any swelling in her extremities. No other GI or urinary symptoms. Patient states she has been told she has spots on her breast and lungs but that she has also been told these are not cancerous. 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 She denies any other daily medications besides albuterol and Advair. Patient states she has had oral steroids in the past which have helpful she is not on any currently. Related Data Home Medications Medication Instructions Recorded Confirmed losartan 100 mg PO DAILY #0 10/27/17 05/02/20 fluticasone propion-salmeterol 1 puff INHALATION BID 10/26/18 05/02/20 [Advair Diskus] montelukast 10 mg PO DAILY 10/26/18 05/02/20 Spiriva with HandiHaler 18 mcg INHALATION DAILY 08/28/19 05/02/20 methocarbamol 500 mg PO DIRECTED 08/28/19 05/02/20 Previous Rx's Medication Instructions Recorded loperamide [Imodium A-D] 2 mg PO Q2-4H PRN #120 ml 08/28/19 albuterol sulfate 2.5 mg INHALATION Q4H PRN #90 ml 05/02/20 doxycycline hyclate 100 mg PO BID #20 cap 05/02/20 ipratropium-albuterol 3 ml INHALATION Q4H PRN #90 ml 05/02/20 prednisone 60 mg PO DAILY #15 tab 05/02/20 prednisone 50 mg PO DAILY #5 tab 02/19/21 albuterol sulfate 2.5 mg INHALATION Q4-6H PRN #75 ml 04/19/21 azithromycin See Rx Instructions .ROUTE 04/19/21 .COMPLEX #6 tab prednisone 50 mg PO DAILY #5 tab 04/19/21 Allergies Allergy/AdvReac Type Severity Reaction Status Date / Time aspirin [ASPIRIN] AdvReac Unknown MAKES HER Verified 04/19/21 14:46 BLEED Review of Systems Review of Systems ROS Unobtainable: All systems reviewed & are unremarkable except as noted in HPI and below Patient History Medical History (Updated 04/19/21 @ 15:36 by Stephanie Martin DO) Asthma exacerbation Bronchitis Surgical History H/O tubal ligation Social History Smoking Status: Never smoker Smoking Status: Never smoker alcohol intake frequency: 0-2 drinks per day Substance Use Type: does not use Exam Narrative Exam Narrative: GENERAL: Alert and oriented x three, in mild distress. HEENT: Head normocephalic, atraumatic, EOMI, pupils reactive, face symmetric, moist mucous membranes NECK: Supple, full range of motion CARDIOVASCULAR: Regular rate and rhythm without murmurs, rubs or gallops. RESPIRATORY: Breath sounds equal bilaterally, mild bilateral wheezes, no rales or rhonchi. No tachypnea. No accessory muscle use. ABDOMEN: Soft, nontender. Normoactive bowel sounds all 4 quadrants. No guarding or rebound, rigidity, no mass : No CVA tenderness EXTREMITIES: Normal range of motion, no clubbing or edema. Neurovascularly intact NEUROLOGICAL: Cranial nerves II through XII grossly intact. Moving all extremities SKIN: Warm, dry, no petechiae, no rashes or lesions. Initial Vital Signs Initial Vital Signs: Vital Signs Temperature 97.9 F 04/19/21 10:53 Pulse Rate 78 04/19/21 10:53 Respiratory Rate 18 04/19/21 10:53 Blood Pressure 174/79 H 04/19/21 10:53 Pulse Oximetry 99 04/19/21 10:53 Course Orders Ordered: ED Orders 04/19/21 11:01 XR chest 2V Stat 04/19/21 14:22 Consult to Respiratory Therapy Evaluate & Treat Discontinued Medications Albuterol (Albuterol 2.5 Mg/3 Ml Neb (Adult)) 2.5 mg INH [id number] PRN PRN Reason: Shortness Of Breath Last Admin: 04/19/21 15:02 Dose: 2.5 mg Documented by: Admin: 04/19/21 14:39 Dose: 2.5 mg Documented by: TORI Azithromycin (Azithromycin 250 Mg Tablet) 500 mg PO NOW ONE Stop: 04/19/21 15:34 Last Admin: 04/19/21 15:58 Dose: 500 mg Documented by: CLAIR Prednisone (Prednisone 20 Mg Tablet) 60 mg PO NOW ONE Stop: 04/19/21 15:34 Last Admin: 04/19/21 15:58 Dose: 60 mg Documented by: CLAIR Vital Signs Vital signs: Vital Signs - 8 hr 04/19/21 14:46 04/19/21 15:02 Pulse Rate 78 79 Respiratory Rate 22 16 Pulse Oximetry 97 97 MDM - SOB/Dyspnea Lab Data Attestation: I reviewed the patient's lab results. Labs: Lab Results 04/19/21 Range/Units 11:00 SARS-CoV-2 (PCR) Negative (Negative) Imaging Data Chest x-ray: Radiologist's Impression: [address] [id number] ReportSigned Patient: Jenni Vidales EMR#: [id number]: 2Acct:[id number]/Sex: 61 / FDate of Service: 04/19/21Loc: EDAccession Number: [id number] Procedure: XR chest 2V Ordering Provider: Stephanie Martin D.O. PROCEDURE: XR CHEST 2V INDICATIONS: cough, shortness of breath, wheezing. TECHNIQUE: 2 views of the chest were acquired. COMPARISON: [facility], CR, XR CHEST 1V, 02/19/2021, 8:36. [facility], CR, XR CHEST 2V, 01/15/2019, 9:57. FINDINGS: Surgical changes and devices: None. Lungs and pleura: Lungs are abnormal, with a mild interstitial prominence and also with reduced inspiratory volume. No pleural effusions or pneumothorax. Mediastinum: Mediastinal contours are normal. Heart size is normal. Bones and chest wall: No suspicious bony abnormalities. Soft tissues appear unremarkable. IMPRESSION: The mild interstitial prominence present may be secondary a 2 reduced inspiratory volume but also can be seen in the setting of internal a myers injury, atypical pneumonia, hand early acute congestive heart failure. Focal pneumonia is not seen. Dictated by: Scott Gallegos M.D. on 04/19/2021 at 11:29 Approved by: Scott Gallegos M.D. on 04/19/2021 at 11:30 ECG Data Attestation: I personally reviewed and interpreted this ECG as follows: Interpretation: Sinus rhythm rate of 71 NV 170 QRS 88 QTC 471[address] No acute ST elevation. Inverted T-waves in 1 aVL. Patient has prior EKG from 02/19/2021 which appears similar. [facility] Narrative Medical decision making narrative: This is a 61-year-old female with known asthma history. Patient has had increased wheezing from her usual baseline. COVID is negative. Chest x-ray does show possible atypical unknown bony a. Patient has had some and a productive cough with thick clear productive sputum. Patient received x2 here in the department which she states was helpful. She has very mild wheezing after this. She is no longer tachypneic and feels much comfortable. Patient has seen a printing estimator, she is trying to get back in to see them. Patient's was given prednisone orally here and states she has responded well to oral steroids in the past. She is not currently on any steroids but has taken them before. She does use albuterol as well as a steroid inhaler. She states she is currently out of her albuterol and asked for a refill of her vials. Also given prescription for antibiotic for atypical pneumonia. Patient was encouraged have short follow-up. Patient also encouraged to return if worsening. Discharge Plan Departure Patient Disposition: Home Clinical Impression: Pneumonia, Asthma exacerbation Instructions: DI for Pneumonia -- Adult Activity Restrictions/Additional Instructions: Follow up with your physician. Call for an appointment. Your imaging today is suspicious for pneumonia. This is likely worsening her asthma symptoms. Take antibiotics until completely gone. Take steroids until completely gone. You may continues albuterol every 4-6 hours as needed. Pharmacy prescriptin at [facility] Please return for new or worsening symptoms, lightheadedness or passing out, worsening shortness of breath or wheezing, swelling of your extremities, persistent vomiting or other new or concerning symptoms. Prescriptions: New albuterol sulfate 1.25 mg/3 mL solution for nebulization 2.5 mg inhalation Q4-6H PRN (Reason: shortness of breath or wheezing) Qty: 75 RF: 0 azithromycin 250 mg tablet See Rx Instructions .ROUTE .COMPLEX Qty: 6 RF: 0 prednisone 50 mg tablet 50 mg PO DAILY Qty: 5 RF: 0 No Action losartan 100 MG tablet 100 mg PO DAILY Qty: 0 RF: 0 methocarbamol 500 mg tablet 500 mg PO DIRECTED RF: 0 Spiriva with HandiHaler 18 mcg capsule, w/inhalation device 18 mcg INHALATION DAILY RF: 0 loperamide [Imodium A-D] 1 mg/7.5 mL liquid 2 mg PO Q2-4H PRN (Reason: loose stool) Qty: 120 RF: 0 doxycycline hyclate 100 mg capsule 100 mg PO BID Qty: 20 RF: 0 albuterol sulfate 2.5 mg /3 mL (0.083 %) solution for nebulization 2.5 mg INHALATION Q4H PRN (Reason: shortness of breath or wheezing) Qty: 90 RF: 0 prednisone 20 mg tablet 60 mg PO DAILY Qty: 15 RF: 0 ipratropium-albuterol 0.5 mg-3 mg(2.5 mg base)/3 mL solution for nebulization 3 ml INHALATION Q4H PRN (Reason: shortness of breath or wheezing) Qty: 90 RF: 0 fluticasone propion-salmeterol [Advair Diskus] 500-50 mcg/dose blister with device 1 puff Inhalation BID RF: 0 montelukast 10 mg tablet 10 mg PO DAILY RF: 0 prednisone 50 mg tablet 50 mg PO DAILY Qty: 5 RF: 0 Referrals: Dia Wilson MD [Primary Care Provider] - Stand Alone Forms: Work Release Note
[2021-04-19] MEDS: AZITHROMYCIN 250 MG TABLET 500 MG PO (15:58)
[2021-04-19] MEDS: predniSONE 20 MG TABLET 60 MG PO (15:58)
== END 2021-04-19 16:13 | disposition home or self-care (01) ==
PROVIDERS: Emergency Provider Emergency Medicine; PCP Internal Medicine
DX: J18.9 Pneumonia, unspecified organism (principal); J45.901 Unspecified asthma with (acute) exacerbation; Z20.822 Contact with and (suspected) exposure to COVID-19
CPT/HCPCS: 71046; 87635; 93005; 93010; 94150; 94640; 99284; C9803; J7613

== ENCOUNTER → 2021-06-23 10:14 | Outpatient (CLI) | payer OTHER, SELFPAY ==
--- NOTE | 2021-06-23 | DI.MG.S_ITS ---
BILATERAL DIGITAL SCREENING MAMMOGRAM 3D/2D WITH CAD: 06/23/2021 CLINICAL: Routine screening. Family history of breast cancer. Comparison is made to exams dated: 07/22/2020 ultrasound, 07/22/2020 mammogram, 06/22/2020 mammogram - [facility], 02/04/2019 mammogram, 02/04/2019 ultrasound, and 06/28/2018 mammogram - [facility]. There are scattered fibroglandular elements in both breasts. Current study was also evaluated with a Computer Aided Detection (CAD) system. No significant masses, calcifications, or other findings are seen in either breast. There has been no significant interval change. IMPRESSION: NEGATIVE There is no mammographic evidence of malignancy. A 1 year screening mammogram is recommended. This exam was interpreted at Station ID: [id number]. NOTE: For mammograms, a report in lay terms will be sent to the patient. Approximately 15% of breast malignancies will not be visualized mammographically. In the management of a palpable breast mass, a negative mammogram must not discourage biopsy of a clinically suspicious lesion. Electronically Signed By: Rajendra Marsh M.D., jr/steve:06/23/2021 12:11:16 letter sent: Normal Exam ACR BI-RADS Category 1: Negative [id number]
== END ==
PROVIDERS: PCP Internal Medicine; Referring Provider Internal Medicine; Visit Provider Internal Medicine
DX: Z12.31 Encounter for screening mammogram for malignant neoplasm of breast (principal); Z80.3 Family history of malignant neoplasm of breast
CPT/HCPCS: 77063; 77067

== ENCOUNTER 2021-07-04 11:07 | Emergency (ER) | payer OTHER, SELFPAY ==
[2021-07-04] VITALS (10 sets, daily range): BP systolic 144–194; BP diastolic 72–97; PULSE 72–85; RESP 18–32; TEMP 36.8; O2SAT 95–98; BMI 27.2
--- NOTE | 2021-07-04 11:52 | DI.RAD.S_ITS ---
PROCEDURE: XR CHEST 2V INDICATIONS: shortness of breath TECHNIQUE: 2 views of the chest were acquired. COMPARISON: [facility], CT, CT ANGIO CHEST PE PROTOCOL, 05/02/2020, 10:05. [facility], CR, XR CHEST 2V, 01/15/2019, 9:57. [facility], CR, XR CHEST 2V, 04/19/2021, 11:03. FINDINGS: Surgical changes and devices: None. Lungs and pleura: Lungs are clear. No pleural effusions or pneumothorax. Mediastinum: The cardiac contours are within normal limits. The aorta demonstrates calcification and tortuosity. Bones and chest wall: No suspicious bony abnormalities. Soft tissues appear unremarkable. IMPRESSION: No acute cardiopulmonary process is seen. Dictated by: Suresh Menard M.D. on 07/04/2021 at 11:41 Approved by: Suresh Menard M.D. on 07/04/2021 at 11:42
[2021-07-04 12:12] LABS: COVID19 -Nasal RAPID Negative (Negative)
[2021-07-04 12:30] LABS: Add Manual Diff / Slide Review NO; Basophils Absolute Auto 100 /uL (0-100); Basophils Percent Auto 0.6 % (0-2); Eosinophils Absolute Auto 300 /uL (0-450); Eosinophils Percent Auto 2.6 % (2-4); Hematocrit 46.1 % (36-46); Hemoglobin 15.1 g/dL (12.0-16.0); Lymphocytes Absolute Auto 1700 /uL (1100-4500); Lymphocytes Percent Auto 13.5 % (25-40); Mean Corpuscular HGB Conc 32.6 % (30-36); Mean Corpuscular Volume 85.7 fL (80-100); Monocytes Absolute Auto 900 /uL (0-900); Monocytes Percent Auto 6.8 % (3-14); Neutrophils Absolute Auto 9600 /uL (1500-7000); Neutrophils Percent Auto 76.5 % (50-75); Platelet Count 238 X10^3/uL (150-400); Red Blood Cell Count 5.38 X10^6/uL (4.0-5.2); Red Cell Distribution Width 13.9 % (11.6-14.8); White Blood Cell Count 12.6 X10^3/uL (4.5-11.0)
[2021-07-04 12:36] LABS: Alanine Aminotransferase 17 IU/L (<35); Albumin 4.6 g/dL (3.5-5.0); Albumin Globulin Ratio 1.2 (1.0-2.8); Alkaline Phosphatase 105 U/L (38-126); Aspartate Aminotransferase 23 IU/L (14-36); BUN Creatinine Ratio 16.7 (6-22); Bilirubin Total 0.6 mg/dL (0.2-1.3); Blood Urea Nitrogen 15 mg/dL (7-17); Calcium 9.4 mg/dL (8.4-10.2); Carbon Dioxide 27 mmol/L (22-32); Chloride 102 mmol/L (98-107); Estimated Glomerular Filt Rate > 60.0 mL/min (>60); Globulin 3.7 g/dL (1.7-4.1); Glucose 112 mg/dL (70-100); HEMOLYSIS < 15 (0-50); Lactate (Lactic Acid) 1.1 mmol/L (0.7-2.1); Potassium 3.5 mmol/L (3.4-5.1); Sodium 138 mmol/L (137-145); Total Protein 8.3 g/dL (6.3-8.2)
--- NOTE | 2021-07-04 13:07 | ED.URI ---
HPI - URI/Sore Throat General Chief Complaint: Upper Respiratory Symptoms Stated Complaint: stomach pain / cough Time Seen by Provider: 07/04/21 13:06 Source: patient Mode of arrival: Ambulatory Limitations: no limitations History of Present Illness HPI Narrative: Female with history of asthma presenting with cough and shortness of breath for the last 2 days. She denies any fever or chills but she cannot sleep at night due to her cough. She is currently coughing up lots of sputum. 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 She is COVID vaccinated. He is having chest tightness. Obvious audible wheezing she. She has been taking her asthma medications regularly. She has had exacerbations in the past the last 1 was in you. She denies any nausea vomiting abdominal pain, no lower extremity edema. Related Data Home Medications Medication Instructions Recorded Confirmed losartan 100 mg tablet 100 mg PO DAILY #0 10/27/17 05/02/20 fluticasone 500 mcg-salmeterol 50 1 puff INHALATION BID 10/26/18 05/02/20 mcg/dose blistr powdr for inhalation montelukast 10 mg tablet 10 mg PO DAILY 10/26/18 05/02/20 methocarbamol 500 mg tablet 500 mg PO DIRECTED 08/28/19 05/02/20 tiotropium bromide 18 mcg capsule 18 mcg INHALATION DAILY 08/28/19 05/02/20 with inhalation device (Spiriva with HandiHaler) Previous Rx's Medication Instructions Recorded loperamide 1 mg/7.5 mL oral liquid 2 mg PO Q2-4H PRN #120 ml 08/28/19 (Imodium A-D) albuterol sulfate 2.5 mg INHALATION Q4H PRN #90 ml 05/02/20 doxycycline hyclate 100 mg capsule 100 mg PO BID #20 cap 05/02/20 ipratropium 0.5 mg-albuterol 3 mg 3 ml INHALATION Q4H PRN #90 ml 05/02/20 (2.5 mg base)/3 mL nebulization soln prednisone 20 mg tablet 60 mg PO DAILY #15 tab 05/02/20 prednisone 50 mg tablet 50 mg PO DAILY #5 tab 02/19/21 albuterol sulfate 1.25 mg/3 mL 2.5 mg INHALATION Q4-6H PRN #75 ml 04/19/21 solution for nebulization azithromycin 250 mg tablet See Rx Instructions .ROUTE 04/19/21 .COMPLEX #6 tab prednisone 50 mg tablet 50 mg PO DAILY #5 tab 04/19/21 albuterol sulfate 0.63 mg/3 mL 0.63 mg INHALATION QID PRN #75 ml 07/04/21 solution for nebulization doxycycline hyclate 100 mg capsule 100 mg PO BID #14 cap 07/04/21 prednisone 20 mg tablet 40 mg PO DAILY #10 tab 07/04/21 Allergies Allergy/AdvReac Type Severity Reaction Status Date / Time aspirin [ASPIRIN] AdvReac Unknown MAKES HER Verified 04/19/21 14:46 BLEED Review of Systems Review of Systems Narrative: GENERAL: Denies chills, fatigue, malaise, fever, sweats, travel HEENT: Denies sinus pain, ear pain, sore throat, difficulty swallowing, neck pain RESPIRATORY: See HPI CARDIOVASCULAR: See HPI GASTROINTESTINAL: Denies nausea, vomiting, abdominal pain, diarrhea, constipation, melena. : Denies dysuria, frequency, incontinence, hematuria, urinary retention, flank pain. MUSCULOSKELETAL: Denies weakness, joint pain, or bony pain SKIN: No rash, no erythema, no pruritus NEUROLOGIC: Denies weakness, dizziness, headache, numbness, change in speech, confusion PSYCHIATRIC: No concerning psychosocial issues. 12 point review of systems is negative except for those stated above and HPI Patient History Medical History (Updated 07/04/21 @ 15:30 by Saira Jimenez DO) Asthma exacerbation Bronchitis Surgical History H/O tubal ligation Social History Smoking Status: Never smoker Smoking Status: Never smoker alcohol intake frequency: 0-2 drinks per day Substance Use Type: does not use Exam Initial Vital Signs Initial Vital Signs: Vital Signs Temperature 98.3 F 07/04/21 11:34 Pulse Rate 84 07/04/21 11:34 Respiratory Rate 18 07/04/21 11:34 Blood Pressure 172/92 H 07/04/21 11:34 Pulse Oximetry 96 07/04/21 11:34 GENERAL: 61-year-old female coughing up sputum appears to feel well in mild respiratory distress HEENT: Head atraumatic,EOMI, pupils reactive, face symmetric, [moist] mucous membranes CARDIOVASCULAR: Regular rate and rhythm without murmurs, rubs or gallops. RESPIRATORY: Decreased breath sounds wheezing speaks in full sentences ABDOMEN: Soft, nontender. Normoactive bowel sounds all 4 quadrants. No guarding or rebound. EXTREMITIES: Normal range of motion, no clubbing or edema. Neurovascularly intact NEUROLOGICAL: Alert and oriented x4.Normal gait and speech. SKIN: Warm, dry, no laceration, no petechiae, no rashes or lesions. Course Orders Ordered: Discontinued Medications Albuterol/Ipratropium (Albuterol/Ipratropium 3 Ml Ampul) 3 ml INH NOW ONE Stop: 07/04/21 13:16 Last Admin: 07/04/21 13:55 Dose: 3 ml Documented by: RYAN Methylprednisolone (Methylprednisolone 125 Mg/2 Ml Vial) 125 mg IV NOW ONE Stop: 07/04/21 13:16 Last Admin: 07/04/21 13:38 Dose: 125 mg Documented by: CIERA Vital Signs Vital signs: Vital Signs - 8 hr 07/04/21 11:34 07/04/21 11:59 07/04/21 12:00 Temperature 98.3 F Pulse Rate 84 83 85 Respiratory Rate 18 22 Blood Pressure 172/92 H 184/97 H Pulse Oximetry 96 96 96 MDM - URI/Sore Throat Lab Data Result diagrams: 07/04/21 12:15 07/04/21 12:15 Labs: Lab Results 07/04/21 07/04/21 07/04/21 Range/Units 11:30 12:15 12:15 WBC 12.6 H (4.5-11.0) X10^3/uL RBC 5.38 H (4.0-5.2) X10^6/uL Hgb 15.1 (12.0-16.0) g/dL Hct 46.1 H (36-46) % MCV 85.7 (80-100) fL MCH 28.0 (26-34) PG MCHC 32.6 (30-36) % RDW 13.9 (11.6-14.8) % Plt Count 238 (150-400) X10^3/uL Neut % (Auto) 76.5 H (50-75) % Lymph % (Auto) 13.5 L (25-40) % Stephenson % (Auto) 6.8 (3-14) % Eos % (Auto) 2.6 (2-4) % Baso % (Auto) 0.6 (0-2) % Neut # (Auto) 9600 H (9368-5033) /uL Lymph # (Auto) 1700 (3180-1898) /uL Stephenson # (Auto) 900 (0-900) /uL Eos # (Auto) 300 (0-450) /uL Baso # (Auto) 100 (0-100) /uL Sodium 138 (137-145) mmol/L Potassium 3.5 (3.4-5.1) mmol/L Chloride 102 (98-107) mmol/L Carbon Dioxide 27 (22-32) mmol/L BUN 15 (7-17) mg/dL Creatinine 0.90 (0.52-1.04) mg/dL Estimated GFR > 60.0 (>60) mL/min BUN/Creatinine Ratio 16.7 (6-22) Glucose 112 H (70-100) mg/dL Lactate (0.7-2.1) mmol/L Calcium 9.4 (8.4-10.2) mg/dL Total Bilirubin 0.6 (0.2-1.3) mg/dL AST 23 (14-36) IU/L ALT 17 (<35) IU/L Alkaline Phosphatase 105 (38-126) U/L Total Creatine Kinase (30-135) U/L CK-MB (CK-2) CK-MB (CK-2) Rel Index Troponin I (0.01-0.034) ng/mL NT-Pro-B Natriuret Pep (<125) pg/mL Total Protein 8.3 H (6.3-8.2) g/dL Albumin 4.6 (3.5-5.0) g/dL Globulin 3.7 (1.7-4.1) g/dL Albumin/Globulin Ratio 1.2 (1.0-2.8) SARS-CoV-2 (PCR) Negative (Negative) 07/04/21 07/04/21 07/04/21 Range/Units 12:15 12:15 12:15 WBC (4.5-11.0) X10^3/uL RBC (4.0-5.2) X10^6/uL Hgb (12.0-16.0) g/dL Hct (36-46) % MCV (80-100) fL MCH (26-34) PG MCHC (30-36) % RDW (11.6-14.8) % Plt Count (150-400) X10^3/uL Neut % (Auto) (50-75) % Lymph % (Auto) (25-40) % Stephenson % (Auto) (3-14) % Eos % (Auto) (2-4) % Baso % (Auto) (0-2) % Neut # (Auto) (5163-2685) /uL Lymph # (Auto) (7922-0391) /uL Stephenson # (Auto) (0-900) /uL Eos # (Auto) (0-450) /uL Baso # (Auto) (0-100) /uL Sodium (137-145) mmol/L Potassium (3.4-5.1) mmol/L Chloride (98-107) mmol/L Carbon Dioxide (22-32) mmol/L BUN (7-17) mg/dL Creatinine (0.52-1.04) mg/dL Estimated GFR (>60) mL/min BUN/Creatinine Ratio (6-22) Glucose (70-100) mg/dL Lactate 1.1 (0.7-2.1) mmol/L Calcium (8.4-10.2) mg/dL Total Bilirubin (0.2-1.3) mg/dL AST (14-36) IU/L ALT (<35) IU/L Alkaline Phosphatase (38-126) U/L Total Creatine Kinase 73 (30-135) U/L CK-MB (CK-2) TNP CK-MB (CK-2) Rel Index TNP Troponin I < 0.012 (0.01-0.034) ng/mL NT-Pro-B Natriuret Pep 494 H (<125) pg/mL Total Protein (6.3-8.2) g/dL Albumin (3.5-5.0) g/dL Globulin (1.7-4.1) g/dL Albumin/Globulin Ratio (1.0-2.8) SARS-CoV-2 (PCR) (Negative) Imaging Data Chest x-ray: Radiologist's Impression: PROCEDURE:? XR CHEST 2V ? INDICATIONS:? shortness of breath ? TECHNIQUE:? 2 views of the chest were acquired.? ? COMPARISON:? [facility], CT, CT ANGIO CHEST PE PROTOCOL, 05/02/2020, 10:05.? [facility], CR, XR CHEST 2V, 01/15/2019, 9:57.? [facility], CR, XR CHEST 2V, 04/19/2021, 11:03. ? FINDINGS:? ? Surgical changes and devices:? None.? ? Lungs and pleura:? Lungs are clear.? No pleural effusions or pneumothorax.? ? Mediastinum:? The cardiac contours are within normal limits. The aorta demonstrates calcification and tortuosity. ? Bones and chest wall:? No suspicious bony abnormalities.? Soft tissues appear unremarkable.? ? IMPRESSION:? ? No acute cardiopulmonary process is seen.? Dictated by: Suresh Menard M.D. on 07/04/2021 at 11:41 ? ? ECG Data Interpretation: Normal sinus rhythm rate 81 HI interval 160 time QRS [address] changes to previous EKG in March 2020 MDM Narrative Medical decision making narrative: Patient has history of asthma she is wheezing for she is given Solu-Medrol and nebulizer treatments. She does improved she has a feeling better she continues to cough up sputum. X-ray is clear by will start her on antibiotics and prednisone. COVID is negative. Discharge Plan Departure Patient Disposition: Home Clinical Impression: Asthma exacerbation, Atypical pneumonia Instructions: Atypical Pneumonia, DI for Reactive Airway Disease-Adult Activity Restrictions/Additional Instructions: *You have been diagnosed with asthma exacerbation, atypical pneumonia *What to do: At this time increase fluid intake, increase activity as tolerated *Continue to take medications as directed Prednisone 40 mg once a day for 5 days Albuterol every 4 hours if needed for wheezing Doxycycline 100 mg twice a day for 7 days *Follow up with your primary care provider in 2-3 days *Return to ER if you should have increasing shortness of breath, chest pain, palpitations any new, worsening or concerning symptoms Prescriptions: New albuterol sulfate 0.63 mg/3 mL solution for nebulization 0.63 mg INHALATION QID PRN (Reason: shortness of breath or wheezing) Qty: 75 RF: 0 prednisone 20 mg tablet 40 mg PO DAILY Qty: 10 RF: 0 doxycycline hyclate 100 mg capsule 100 mg PO BID Qty: 14 RF: 0 No Action losartan 100 MG tablet 100 mg PO DAILY Qty: 0 RF: 0 methocarbamol 500 mg tablet 500 mg PO DIRECTED RF: 0 Spiriva with HandiHaler 18 mcg capsule, w/inhalation device 18 mcg INHALATION DAILY RF: 0 loperamide [Imodium A-D] 1 mg/7.5 mL liquid 2 mg PO Q2-4H PRN (Reason: loose stool) Qty: 120 RF: 0 doxycycline hyclate 100 mg capsule 100 mg PO BID Qty: 20 RF: 0 albuterol sulfate 2.5 mg /3 mL (0.083 %) solution for nebulization 2.5 mg INHALATION Q4H PRN (Reason: shortness of breath or wheezing) Qty: 90 RF: 0 prednisone 20 mg tablet 60 mg PO DAILY Qty: 15 RF: 0 ipratropium-albuterol 0.5 mg-3 mg(2.5 mg base)/3 mL solution for nebulization 3 ml INHALATION Q4H PRN (Reason: shortness of breath or wheezing) Qty: 90 RF: 0 fluticasone propion-salmeterol [Advair Diskus] 500-50 mcg/dose blister with device 1 puff Inhalation BID RF: 0 montelukast 10 mg tablet 10 mg PO DAILY RF: 0 prednisone 50 mg tablet 50 mg PO DAILY Qty: 5 RF: 0 albuterol sulfate 1.25 mg/3 mL solution for nebulization 2.5 mg inhalation Q4-6H PRN (Reason: shortness of breath or wheezing) Qty: 75 RF: 0 azithromycin 250 mg tablet See Rx Instructions .ROUTE .COMPLEX Qty: 6 RF: 0 prednisone 50 mg tablet 50 mg PO DAILY Qty: 5 RF: 0 Referrals: Dia Wilson MD [Primary Care Provider] -
[2021-07-04] MEDS: methylPREDNISolone 125 MG/2 ML VIAL IV (13:38)
[2021-07-04 13:41] LABS: NT-proBNP (BNP-Adult 18+) 494 pg/mL (<125)
[2021-07-04] MEDS: ALBUTEROL/IPRATROPIUM 3 ML AMPUL INH (13:55)
[2021-07-04 14:38] LABS: Creatine Kinase 73 U/L (30-135)
[2021-07-04 14:51] LABS: Troponin I < 0.012 ng/mL (0.01-0.034)
== END 2021-07-04 15:53 | disposition home or self-care (01) ==
PROVIDERS: Emergency Provider Emergency Medicine; PCP Internal Medicine
DX: J45.901 Unspecified asthma with (acute) exacerbation (principal); J18.9 Pneumonia, unspecified organism; R05 Cough; Z20.822 Contact with and (suspected) exposure to COVID-19
CPT/HCPCS: 36415; 71046; 80053; 82550; 83605; 83880; 84484; 85025; 87635; 93005; 94150; 94640; 96374; 99284; C9803; J2930

== ENCOUNTER 2021-08-03 11:31 | Inpatient (IN) | payer OTHER, SELFPAY ==
[2021-08-03] VITALS (70 sets, daily range): BP systolic 127–243; BP diastolic 61–144; PULSE 62–80; RESP 14–32; TEMP 36.8–36.9; O2SAT 92–99; BMI 27.2
--- NOTE | 2021-08-03 11:39 | DI.RAD.S_ITS ---
PROCEDURE: XR CHEST 2V INDICATIONS: shortness of breath TECHNIQUE: 2 views of the chest were acquired. COMPARISON: [facility], , XR CHEST 2V, 07/04/2021, 12:13. FINDINGS: Surgical changes and devices: None. Lungs and pleura: Lungs are clear. No pleural effusions or pneumothorax. Mediastinum: Mediastinal contours are normal. Heart size is normal. Bones and chest wall: No suspicious bony abnormalities. Soft tissues appear unremarkable. Hair artifact is noted. IMPRESSION: Stable radiographic evaluation of the chest without acute cardiopulmonary abnormalities or focal airspace disease. Dictated by: Cristian Greco M.D. on 08/03/2021 at 12:15 Approved by: Cristian Greco M.D. on 08/03/2021 at 12:33
[2021-08-03 12:01] LABS: COVID19 -Nasal RAPID Negative (Negative)
[2021-08-03 12:08] LABS: Add Manual Diff / Slide Review NO; Basophils Absolute Auto 100 /uL (0-100); Basophils Percent Auto 1.3 % (0-2); Eosinophils Absolute Auto 500 /uL (0-450); Eosinophils Percent Auto 6.1 % (2-4); Hematocrit 44.3 % (36-46); Hemoglobin 14.6 g/dL (12.0-16.0); Lymphocytes Absolute Auto 2600 /uL (1100-4500); Lymphocytes Percent Auto 30.7 % (25-40); Mean Corpuscular HGB Conc 32.9 % (30-36); Mean Corpuscular Hemoglobin 28.2 PG (26-34); Mean Corpuscular Volume 85.7 fL (80-100); Monocytes Absolute Auto 500 /uL (0-900); Neutrophils Absolute Auto 4800 /uL (1500-7000); Neutrophils Percent Auto 55.9 % (50-75); Platelet Count 267 X10^3/uL (150-400); Red Blood Cell Count 5.17 X10^6/uL (4.0-5.2); Red Cell Distribution Width 13.7 % (11.6-14.8); White Blood Cell Count 8.6 X10^3/uL (4.5-11.0)
[2021-08-03 12:28] LABS: Lactate (Lactic Acid) 1.3 mmol/L (0.7-2.1)
[2021-08-03 12:29] LABS: Alanine Aminotransferase 14 IU/L (<35); Albumin 4.2 g/dL (3.5-5.0); Albumin Globulin Ratio 1.3 (1.0-2.8); Alkaline Phosphatase 111 U/L (38-126); Aspartate Aminotransferase 20 IU/L (14-36); BUN Creatinine Ratio 22.7 (6-22); Bilirubin Total 0.4 mg/dL (0.2-1.3); Blood Urea Nitrogen 15 mg/dL (7-17); Calcium 8.9 mg/dL (8.4-10.2); Carbon Dioxide 27 mmol/L (22-32); Chloride 104 mmol/L (98-107); Estimated Glomerular Filt Rate > 60.0 mL/min (>60); Globulin 3.2 g/dL (1.7-4.1); Glucose 91 mg/dL (70-100); HEMOLYSIS < 15 (0-50); Potassium 3.5 mmol/L (3.4-5.1); Sodium 140 mmol/L (137-145); Total Protein 7.4 g/dL (6.3-8.2)
[2021-08-03 12:38] LABS: NT-proBNP (BNP-Adult 18+) 393 pg/mL (<125)
[2021-08-03 13:17] LABS: D Dimer 203 ng/mL (<230)
[2021-08-03] MEDS: ALBUTEROL/IPRATROPIUM 3 ML AMPUL INH ×2 (13:18→19:35)
[2021-08-03] MEDS: LABETALOL 20 MG/4 ML SYRINGE IV (13:27)
--- NOTE | 2021-08-03 13:39 | ED.SOB ---
HPI - SOB/Dyspnea General Chief Complaint: Shortness of Breath/Dyspnea Stated Complaint: SOB Time Seen by Provider: 08/03/21 12:47 Source: patient Mode of arrival: Ambulatory Limitations: no limitations History of Present Illness HPI Narrative: 61-year-old female nonsmoker with history of asthma presents with her in the chief complaint of increasing shortness of breath as well as some chest pain that radiates to her back over the past day or so. She denies any obvious provocation or palliation of her pain. She states that it is pressure and heavy like and sensation. She states that her symptoms seemed to start when she breathes in some cold air and a triggered her asthma. She has taken if you inhalers at home with minimal relief. She denies any fever or chills. She denies any history of blood clot. She is not dizzy nor weak or lightheaded. Related Data Home Medications Medication Instructions Recorded Confirmed losartan 100 mg tablet 100 mg PO QPM #0 10/27/17 08/03/21 fluticasone 500 mcg-salmeterol 50 1 puff INHALATION BID 10/26/18 05/02/20 mcg/dose blistr powdr for inhalation montelukast 10 mg tablet 10 mg PO DAILY 10/26/18 08/03/21 methocarbamol 500 mg tablet 500 mg PO DIRECTED 08/28/19 05/02/20 tiotropium bromide 18 mcg capsule 18 mcg INHALATION DAILY 08/28/19 05/02/20 with inhalation device (Spiriva with HandiHaler) hydrochlorothiazide 25 mg tablet 25 mg PO QPM 08/03/21 08/03/21 Previous Rx's Medication Instructions Recorded loperamide 1 mg/7.5 mL oral liquid 2 mg PO Q2-4H PRN #120 ml 08/28/19 (Imodium A-D) albuterol sulfate 2.5 mg INHALATION Q4H PRN #90 ml 05/02/20 ipratropium 0.5 mg-albuterol 3 mg 3 ml INHALATION Q4H PRN #90 ml 05/02/20 (2.5 mg base)/3 mL nebulization soln albuterol sulfate 1.25 mg/3 mL 2.5 mg INHALATION Q4-6H PRN #75 ml 04/19/21 solution for nebulization albuterol sulfate 0.63 mg/3 mL 0.63 mg INHALATION QID PRN #75 ml 07/04/21 solution for nebulization Allergies Allergy/AdvReac Type Severity Reaction Status Date / Time aspirin [ASPIRIN] AdvReac Unknown MAKES HER Verified 08/03/21 11:35 BLEED Review of Systems Review of Systems Narrative: GENERAL: Denies chills, fatigue, malaise, fever, sweats. HEENT: Denies sinus pain, ear pain, sore throat, difficulty swallowing, dizziness. RESPIRATORY: See HPI CARDIOVASCULAR: See HPI GASTROINTESTINAL: Denies nausea, vomiting, abdominal pain, diarrhea, constipation, melena. : Denies dysuria, frequency, incontinence, hematuria, urinary retention. MUSCULOSKELETAL: denies weakness, joint pain, or bony pain SKIN: Denies rash, skin lesions, or other NEUROLOGIC: Denies weakness, headache, numbness, change in speech, confusion, seizures, incoordination. PSYCHIATRIC: No concerning psychosocial issues. 12 point review of systems is negative except for those stated above Patient History Medical History (Updated 08/03/21 @ 15:29 by Kulwinder Camp DO) Asthma exacerbation Bronchitis Surgical History H/O tubal ligation Social History Smoking Status: Never smoker Smoking Status: Never smoker alcohol intake frequency: holidays/special occasions only Substance Use Type: does not use Exam Narrative Exam Narrative: GENERAL: [61 year old patient appears stated age. Well-developed patient, in mild distress, increased work of breathing HEAD: Atraumatic. Normocephalic. EYES: Pupils equal round and reactive. Extraocular motions intact. No scleral icterus. No injection or drainage. ENT: Nose without bleeding, purulent drainage. Throat without erythema, tonsillar hypertrophy or exudate. Airway patent. NECK: Trachea midline. Non tender CARDIOVASCULAR: Regular rate and rhythm without murmurs, gallops, or rubs. RESPIRATORY: Decreased lung sounds throughout, expiratory wheeze with faint crackles in bilateral bases GASTROINTESTINAL: Abdomen soft, non-tender, nondistended. EXTREMITIES: No edema or joint tenderness. BACK: Nontender without deformity or crepitance. No flank tenderness. NEURO: AOx3. SKIN: No rash or erythema of visible areas Initial Vital Signs Initial Vital Signs: Vital Signs Temperature 98.4 F 08/03/21 11:35 Pulse Rate 77 08/03/21 11:35 Respiratory Rate 20 08/03/21 11:35 Blood Pressure 214/111 H 08/03/21 11:35 Pulse Oximetry 97 08/03/21 11:35 Course Course Course Narrative: Patient does report some improvement after above-stated broncho dilators. Blood pressure continues to be elevated well over 200, labetalol ordered. Orders Ordered: ED Orders 08/03/21 11:39 XR chest 2V Stat COVID19 -Nasal swab/Pre-Proc Stat Measure peak expiratory flow ONCE RT Consult Eval and Treat Now 08/03/21 11:44 EKG-12 Lead Stat 08/03/21 11:50 Complete Blood Count AUTO DIFF Stat Comprehensive Metabolic Panel Stat D Dimer Stat Lactate (Lactic Acid) Stat NT-proBNP (BNP-Adult 18+) Stat 08/03/21 13:59 CT angio chest abdomen pelvis Stat 08/03/21 14:35 COVID19 - ADMIT (MEMBER OF [employer] ST[employer] swab/PCR) Stat Nicardipine HCl 25 mg/ Sodium (Chloride) 250 mls @ 50 mls/hr IV TITRATE MAGDA; Protocol Last Titration: 08/03/21 15:20 Dose: 2.5 mg/hr, 25 mls/hr Documented by: Admin: 08/03/21 14:53 Dose: 5 mg/hr, 50 mls/hr Documented by: YESSENIA Discontinued Medications Albuterol/Ipratropium (Albuterol/Ipratropium 3 Ml Ampul) 3 ml INH NOW ONE Stop: 08/03/21 13:12 Last Admin: 08/03/21 13:18 Dose: 3 ml Documented by: ALICIA Labetalol HCl (Labetalol 20 Mg/4 Ml Syringe) 20 mg IV NOW ONE Stop: 08/03/21 13:20 Last Admin: 08/03/21 13:27 Dose: 20 mg Documented by: YESSENIA Losartan Potassium (Losartan 50 Mg Tablet) 100 mg PO NOW ONE Stop: 08/03/21 15:49 Last Admin: 08/03/21 16:34 Dose: 100 mg Documented by: YESSENIA Vital Signs Vital signs: Vital Signs - 8 hr 08/03/21 11:35 08/03/21 12:02 08/03/21 12:34 Temperature 98.4 F Pulse Rate 77 73 Respiratory Rate 20 20 21 Blood Pressure 214/111 H Pulse Oximetry 97 97 97 08/03/21 12:36 08/03/21 13:00 08/03/21 13:01 Temperature Pulse Rate 71 67 66 Respiratory Rate 21 21 19 Blood Pressure 191/92 H 227/109 H Pulse Oximetry 97 99 99 08/03/21 13:05 08/03/21 13:18 08/03/21 13:27 Temperature Pulse Rate 71 72 65 Respiratory Rate 23 14 Blood Pressure 242/103 H 243/103 H Pulse Oximetry 98 96 08/03/21 13:30 08/03/21 13:31 08/03/21 13:35 Temperature Pulse Rate 66 67 65 Respiratory Rate 22 26 H 32 H Blood Pressure 241/102 H 225/103 H Pulse Oximetry 97 97 96 08/03/21 13:40 08/03/21 13:45 08/03/21 13:58 Temperature Pulse Rate 64 64 62 Respiratory Rate 22 19 Blood Pressure 222/100 H 189/94 H 189/94 H Pulse Oximetry 95 94 08/03/21 14:00 08/03/21 14:18 08/03/21 14:30 Temperature Pulse Rate 63 67 64 Respiratory Rate 27 H 25 H 32 H Blood Pressure 200/84 H 219/105 H 196/144 H Pulse Oximetry 95 98 97 08/03/21 14:38 08/03/21 14:45 08/03/21 15:00 Temperature Pulse Rate 62 63 65 Respiratory Rate 18 25 H 18 Blood Pressure 207/98 H 213/104 H Pulse Oximetry 98 97 97 08/03/21 15:01 08/03/21 15:05 08/03/21 15:10 Temperature Pulse Rate 65 66 71 Respiratory Rate 18 27 H 26 H Blood Pressure 186/87 H 168/87 H 169/87 H Pulse Oximetry 97 96 96 08/03/21 15:15 08/03/21 15:24 08/03/21 15:30 Temperature Pulse Rate 69 74 69 Respiratory Rate 23 22 19 Blood Pressure 156/81 H 156/83 H 164/88 H Pulse Oximetry 96 97 96 08/03/21 16:00 Temperature Pulse Rate 68 Respiratory Rate 22 Blood Pressure 164/95 H Pulse Oximetry 95 MDM - SOB/Dyspnea Lab Data Result diagrams: 08/03/21 11:50 08/03/21 11:50 Labs: Lab Results 08/03/21 08/03/21 08/03/21 Range/Units 11:39 11:50 11:50 WBC 8.6 (4.5-11.0) X10^3/uL RBC 5.17 (4.0-5.2) X10^6/uL Hgb 14.6 (12.0-16.0) g/dL Hct 44.3 (36-46) % MCV 85.7 (80-100) fL MCH 28.2 (26-34) PG MCHC 32.9 (30-36) % RDW 13.7 (11.6-14.8) % Plt Count 267 (150-400) X10^3/uL Neut % (Auto) 55.9 (50-75) % Lymph % (Auto) 30.7 (25-40) % Sampson % (Auto) 6.0 (3-14) % Eos % (Auto) 6.1 H (2-4) % Baso % (Auto) 1.3 (0-2) % Neut # (Auto) 4800 (1122-9682) /uL Lymph # (Auto) 2600 (4529-9797) /uL Sampson # (Auto) 500 (0-900) /uL Eos # (Auto) 500 H (0-450) /uL Baso # (Auto) 100 (0-100) /uL D-Dimer (<230) ng/mL Sodium 140 (137-145) mmol/L Potassium 3.5 (3.4-5.1) mmol/L Chloride 104 (98-107) mmol/L Carbon Dioxide 27 (22-32) mmol/L BUN 15 (7-17) mg/dL Creatinine 0.66 (0.52-1.04) mg/dL Estimated GFR > 60.0 (>60) mL/min BUN/Creatinine Ratio 22.7 H (6-22) Glucose 91 (70-100) mg/dL Lactate (0.7-2.1) mmol/L Calcium 8.9 (8.4-10.2) mg/dL Total Bilirubin 0.4 (0.2-1.3) mg/dL AST 20 (14-36) IU/L ALT 14 (<35) IU/L Alkaline Phosphatase 111 (38-126) U/L NT-Pro-B Natriuret Pep 393 H (<125) pg/mL Total Protein 7.4 (6.3-8.2) g/dL Albumin 4.2 (3.5-5.0) g/dL Globulin 3.2 (1.7-4.1) g/dL Albumin/Globulin Ratio 1.3 (1.0-2.8) SARS-CoV-2 (PCR) Negative (Negative) 08/03/21 08/03/21 08/03/21 Range/Units 11:50 11:50 14:35 WBC (4.5-11.0) X10^3/uL RBC (4.0-5.2) X10^6/uL Hgb (12.0-16.0) g/dL Hct (36-46) % MCV (80-100) fL MCH (26-34) PG MCHC (30-36) % RDW (11.6-14.8) % Plt Count (150-400) X10^3/uL Neut % (Auto) (50-75) % Lymph % (Auto) (25-40) % Sampson % (Auto) (3-14) % Eos % (Auto) (2-4) % Baso % (Auto) (0-2) % Neut # (Auto) (9082-6758) /uL Lymph # (Auto) (1103-4010) /uL Sampson # (Auto) (0-900) /uL Eos # (Auto) (0-450) /uL Baso # (Auto) (0-100) /uL D-Dimer 203 (<230) ng/mL Sodium (137-145) mmol/L Potassium (3.4-5.1) mmol/L Chloride (98-107) mmol/L Carbon Dioxide (22-32) mmol/L BUN (7-17) mg/dL Creatinine (0.52-1.04) mg/dL Estimated GFR (>60) mL/min BUN/Creatinine Ratio (6-22) Glucose (70-100) mg/dL Lactate 1.3 (0.7-2.1) mmol/L Calcium (8.4-10.2) mg/dL Total Bilirubin (0.2-1.3) mg/dL AST (14-36) IU/L ALT (<35) IU/L Alkaline Phosphatase (38-126) U/L NT-Pro-B Natriuret Pep (<125) pg/mL Total Protein (6.3-8.2) g/dL Albumin (3.5-5.0) g/dL Globulin (1.7-4.1) g/dL Albumin/Globulin Ratio (1.0-2.8) SARS-CoV-2 (PCR) Negative (Negative) Imaging Data CTA Chest/Abd: Radiologist's Impression: Jenni Vidales??61??F??1960 ? Allergy/Adv: aspirin Close Chest/Abdomen/Pelvis CTA (Signed) Brandie Grady - 08/03/21 Chest X-Ray (Signed) Cristian Greco - 08/03/21 Chest X-Ray (Signed) Suresh Menard - 07/04/21 Mammogram Screening (Signed) Rajendra Marsh - 06/23/21 Chest X-Ray (Signed) Scott Gallegos - 04/19/21 Chest X-Ray (Signed) Charles Cannon - 02/19/21 Mammogram, Additional Views (Signed) Cristian Greco - 07/22/20 Breast Ultrasound (Signed) Cristian Greco - 07/22/20 Mammogram Screening (Signed) Cristian Greco - 06/22/20 Abdomen/Pelvis CT (Signed) Colt Fairbanks - 05/02/20 Chest CTA (Signed) Colt Fairbanks - 05/02/20 Abdomen/Pelvis CT (Signed) Aniceto Gama - 08/28/19 Chest X-Ray (Signed) Brandie Grady - 01/15/19 Chest X-Ray (Signed) Scott Gallegos - 10/26/18 Radiology - Historical 10/27/17 Radiology - Historical 11/24/16 Launch?[address] [address] [address] Scan Report Signed Patient: Jenni Vidales MR#: [id number] : 1960 Acct:[id number] Age/Sex: 61 / F Date of Service: 08/03/21 Loc: ED Accession Number: [id number] ?? Procedure: CT angio chest abdomen pelvis Ordering Provider: Dalbo,Kulwinder D.O. PROCEDURE:? CT ANGIO CHEST ABDOMEN PELVIS ? INDICATIONS:? severe chest pain, radiation to back, HTN, tearing ? TECHNIQUE:? Precontrast 5 mm thick sections acquired from the lung apices to the iliac crests.? After the administration of intravenous contrast, 2.5 mm thick sections again acquired from the lung apices to the iliac crests.? Maximum intensity projection (MIP) oblique sagittal and coronal reformats were then acquired.? For radiation dose reduction, the following was used:? automated exposure control.? ? COMPARISON:? None. ? FINDINGS:? Image quality:? Excellent.? ? AORTA:? Thoracoabdominal aorta is normal in caliber, without aneurysm, or dissection.? No aneurysm. ? CHEST:? Lungs and pleura:? Mild degree of scattered geographic ground-glass pulmonary density.? No pleural effusions or pneumothorax.? Central and peripheral airways are patent .? Mild degree of scattered segmental and subsegmental bronchial thickening.? Calcified granuloma within the right upper lobe posterolaterally. ? Mediastinum:? Heart size is normal.? No pericardial effusion.? No mediastinal or hilar adenopathy by size criteria.? Central pulmonary arteries are normal in size.? Esophagus is normal in caliber.? No hiatal hernias.? ? Bones and chest wall:? No axillary adenopathy by size criteria.? Thyroid gland is within normal limits .? No suspicious bony lesions.? No vertebral body compression fractures.? ? ? ABDOMEN:? Vasculature:? Celiac trunk and mesenteric arteries are patent.? Renal arteries are also patent.? ? Solid organs:? Liver is normal in size and enhancement.? Gallbladder is within normal limits .? Biliary system is non dilated.? Pancreas enhances normally.? Spleen is normal in size and enhancement.? No adrenal nodules.? Both kidneys are normal in size and enhancement, without hydronephrosis.? ? Peritoneum and bowel:? No free fluid or air.? Bowel loops are normal in caliber and wall thickness.? ? Nodes and vessels:? No retroperitoneal or mesenteric adenopathy by size criteria.? Inferior vena cava is normal in morphology.? ? Miscellaneous:? No ventral hernias.? ? ? PELVIS:? Genitourinary:? Bladder wall thickness is normal.? ? Miscellaneous:? No inguinal hernias or adenopathy.? No ventral hernias.? ? Bones:? No suspicious bony lesions.? No vertebral body compression fractures.? ? ? IMPRESSION:? 1. Mild bronchopneumonia. 2. Negative evaluation of the thoracoabdominal aorta. 3. Normal appendix.? ? ? Dictated by: Brandie Grady M.D. on 08/03/2021 at 14:31 ? ? Approved by: Brandie Grady M.D. on 08/03/2021 at 14:37 ? MDM Narrative Medical decision making narrative: 61-year-old female with history of asthma and hypertension presents with chest pain and shortness of breath, she admits the chest pain was most intense at its onset and radiated to her back. It is greatly improved and seems to completely go away with blood pressure control. She states her shortness of breath seemed to get significantly worse when she breathes some cold dry air which can trigger her asthma. She has had some experience with improvement in symptoms after bronchodilators here. Her blood pressures have been as high as the 240s and symptoms seem to tightly correlate with her blood pressure. After labetalol she went is low is 189 systolic and reported no shortness of breath or chest pain. Given her history and physical a CT angiogram to rule out dissection was performed which had no significant findings. She is now on a nicardipine drip for blood pressure control and requires hospitalization for stabilization ongoing evaluation of her condition Critical Care Time Critical Care Time Critical Care Time: Yes Total Critical Care Time: 30 Attestation: The high probability of a clinically significant, sudden or life threatening deterioration of the [CV] system(s) required my full and direct attention, intervention and personal management. The aggregate critical care time was [30] minutes. This time is in addition to time spent performing reported procedures but includes the following: [x] Data Review and interpretation [x] Patient assessment and monitoring of vital signs [x] Documentation [x] Medication orders and management Discharge Plan Departure Patient Disposition: Admitted As Inpatient Clinical Impression: Hypertensive emergency Admit Date/Time: 08/03/21 16:23 Admit Provider: Abelardo Rossi
--- NOTE | 2021-08-03 13:59 | DI.CT.S_ITS ---
PROCEDURE: CT ANGIO CHEST ABDOMEN PELVIS INDICATIONS: severe chest pain, radiation to back, HTN, tearing TECHNIQUE: Precontrast 5 mm thick sections acquired from the lung apices to the iliac crests. After the administration of intravenous contrast, 2.5 mm thick sections again acquired from the lung apices to the iliac crests. Maximum intensity projection (MIP) oblique sagittal and coronal reformats were then acquired. For radiation dose reduction, the following was used: automated exposure control. COMPARISON: None. FINDINGS: Image quality: Excellent. AORTA: Thoracoabdominal aorta is normal in caliber, without aneurysm, or dissection. No aneurysm. CHEST: Lungs and pleura: Mild degree of scattered geographic ground-glass pulmonary density. No pleural effusions or pneumothorax. Central and peripheral airways are patent . Mild degree of scattered segmental and subsegmental bronchial thickening. Calcified granuloma within the right upper lobe posterolaterally. Mediastinum: Heart size is normal. No pericardial effusion. No mediastinal or hilar adenopathy by size criteria. Central pulmonary arteries are normal in size. Esophagus is normal in caliber. No hiatal hernias. Bones and chest wall: No axillary adenopathy by size criteria. Thyroid gland is within normal limits . No suspicious bony lesions. No vertebral body compression fractures. ABDOMEN: Vasculature: Celiac trunk and mesenteric arteries are patent. Renal arteries are also patent. Solid organs: Liver is normal in size and enhancement. Gallbladder is within normal limits . Biliary system is non dilated. Pancreas enhances normally. Spleen is normal in size and enhancement. No adrenal nodules. Both kidneys are normal in size and enhancement, without hydronephrosis. Peritoneum and bowel: No free fluid or air. Bowel loops are normal in caliber and wall thickness. Nodes and vessels: No retroperitoneal or mesenteric adenopathy by size criteria. Inferior vena cava is normal in morphology. Miscellaneous: No ventral hernias. PELVIS: Genitourinary: Bladder wall thickness is normal. Miscellaneous: No inguinal hernias or adenopathy. No ventral hernias. Bones: No suspicious bony lesions. No vertebral body compression fractures. IMPRESSION: 1. Mild bronchopneumonia. 2. Negative evaluation of the thoracoabdominal aorta. 3. Normal appendix. Dictated by: Brandie Grady M.D. on 08/03/2021 at 14:31 Approved by: Brandie Grady M.D. on 08/03/2021 at 14:37
[2021-08-03] MEDS: NICARDIPINE 25 MG in SODIUM CHLORIDE 0.9% 240 ML 50 ML IV (14:53)
[2021-08-03 15:53] LABS: COVID19 - ADMIT (NP swab/PCR) Negative (Negative)
[2021-08-03] MEDS: LOSARTAN 50 MG TABLET 100 MG PO (16:34)
--- NOTE | 2021-08-03 17:23 | PC.NURSE ---
BP 134/84, Nicardipine drip paused. ICU nurse updated. Pt to ICU.
--- NOTE | 2021-08-03 18:11 | P.HP_ITS ---
History of Present Illness History of Present Illness Date Patient Seen: 08/03/21 Time Patient Seen: 18:00 Chief complaint: SOB Narrative: Patient is 61-year-old female with history of asthma, chronic hypertension presented to ED with complaints of shortness of breath, chest pain radiating to the back, abdominal pain. Initial BP was 214/111. Highest it BP in the ED was 243 systolic. Patient takes losartan and hydrochlorothiazide for BP control at home. She states home blood pressures are typically elevated 140s or higher. She has been compliant with medications. Labs in ED included normal CBC, normal renal function and glucose, N BNP 393, troponin not done/available. EKG showed sinus rhythm with LVH and repolarization abnormality. Patient had chest, abdomen and pelvic CT which was un remarkable except for mild scattered ground-glass pulmonary density and bronchial thickening. Patient has not had fevers, chills or cough. Patient was administered labetalol 20 mg IV and losartan 100 mg without significant change in blood pressure. Subsequently she was started on nicardipine drip and blood pressure came down to rapidly in the 130 systolic with patient getting dizzy. Nicardipine was then discontinued. Patient blood pressure was 218/101 when she came up to ICU. She is currently pain-free but does complain of some nausea and wheezing. Patient History Medical History (Updated 08/03/21 @ 18:26 by Abelardo Rossi MD) Asthma exacerbation Bronchitis Hypertension Surgical History H/O tubal ligation Family & Social History Family History (Updated 08/03/21 @ 18:26 by Abelardo Rossi MD) Father Hypertension Social History: household members spouse Safety & Behavioral: Feels Safe in Current Yes Environment Been Physically Hurt or No Threatened By a Person Suicidal Ideation Description None Suicide Plan Description No Plan Tobacco & Substance use: Smoking Status Never smoker alcohol intake frequency holiday/special occasion Substance Use Type does not use Meds Home Medications and Allergies Home Medications Medication Instructions Recorded Confirmed Type losartan 100 mg tablet 100 mg PO QPM #0 10/27/17 08/03/21 History fluticasone 500 mcg-salmeterol 50 1 puff INHALATION BID 10/26/18 08/03/21 History mcg/dose blistr powdr for inhalation montelukast 10 mg tablet 10 mg PO DAILY 10/26/18 08/03/21 History tiotropium bromide 18 mcg capsule 18 mcg INHALATION DAILY 08/28/19 08/03/21 History with inhalation device (Spiriva with HandiHaler) albuterol sulfate 2.5 mg INHALATION Q4H PRN #90 ml 05/02/20 08/03/21 Rx ipratropium 0.5 mg-albuterol 3 mg 3 ml INHALATION Q4H PRN #90 ml 05/02/20 08/03/21 Rx (2.5 mg base)/3 mL nebulization soln albuterol sulfate 1.25 mg/3 mL 2.5 mg INHALATION Q4-6H PRN #75 ml 04/19/21 08/03/21 Rx solution for nebulization albuterol sulfate 0.63 mg/3 mL 0.63 mg INHALATION QID PRN #75 ml 07/04/21 08/03/21 Rx solution for nebulization hydrochlorothiazide 25 mg tablet 25 mg PO QPM 08/03/21 08/03/21 History Allergies Allergy/AdvReac Type Severity Reaction Status Date / Time aspirin [ASPIRIN] AdvReac Unknown MAKES HER Verified 08/03/21 11:35 BLEED Review of Systems Review of Systems Narrative: Complete ROS negative except as noted. Exam Vital Signs (past 8 hours): - 08/03/21 11:35 08/03/21 12:02 08/03/21 12:34 Temperature 98.4 F Pulse Rate 77 73 Respiratory Rate 20 20 21 Blood Pressure 214/111 H Pulse Oximetry 97 97 97 08/03/21 12:36 08/03/21 13:00 08/03/21 13:01 Temperature Pulse Rate 71 67 66 Respiratory Rate 21 21 19 Blood Pressure 191/92 H 227/109 H Pulse Oximetry 97 99 99 08/03/21 13:05 08/03/21 13:18 08/03/21 13:27 Temperature Pulse Rate 71 72 65 Respiratory Rate 23 14 Blood Pressure 242/103 H 243/103 H Pulse Oximetry 98 96 08/03/21 13:30 08/03/21 13:31 08/03/21 13:35 Temperature Pulse Rate 66 67 65 Respiratory Rate 22 26 H 32 H Blood Pressure 241/102 H 225/103 H Pulse Oximetry 97 97 96 08/03/21 13:40 08/03/21 13:45 08/03/21 13:58 Temperature Pulse Rate 64 64 62 Respiratory Rate 22 19 Blood Pressure 222/100 H 189/94 H 189/94 H Pulse Oximetry 95 94 08/03/21 14:00 08/03/21 14:18 08/03/21 14:30 Temperature Pulse Rate 63 67 64 Respiratory Rate 27 H 25 H 32 H Blood Pressure 200/84 H 219/105 H 196/144 H Pulse Oximetry 95 98 97 08/03/21 14:38 08/03/21 14:45 08/03/21 15:00 Temperature Pulse Rate 62 63 65 Respiratory Rate 18 25 H 18 Blood Pressure 207/98 H 213/104 H Pulse Oximetry 98 97 97 08/03/21 15:01 08/03/21 15:05 08/03/21 15:10 Temperature Pulse Rate 65 66 71 Respiratory Rate 18 27 H 26 H Blood Pressure 186/87 H 168/87 H 169/87 H Pulse Oximetry 97 96 96 08/03/21 15:15 08/03/21 15:24 08/03/21 15:30 Temperature Pulse Rate 69 74 69 Respiratory Rate 23 22 19 Blood Pressure 156/81 H 156/83 H 164/88 H Pulse Oximetry 96 97 96 08/03/21 16:00 08/03/21 16:30 08/03/21 16:34 Temperature Pulse Rate 68 67 68 Respiratory Rate 22 21 Blood Pressure 164/95 H 160/87 H 160/87 H Pulse Oximetry 95 95 08/03/21 17:01 08/03/21 17:06 08/03/21 17:25 Temperature 98.2 F Pulse Rate 80 71 70 Respiratory Rate 22 22 Blood Pressure 134/84 218/101 H Pulse Oximetry 95 98 Oxygen Delivery Method Room Air Oxygen Flow Rate 0 Narrative Exam Narrative: General: She is alert well-developed well-nourished female in no acute distress at this time HEENT: Pupils equal and reactive Neck: No lymphadenopathy Lungs: Clear to auscultation Heart: Regular rhythm without murmur Abdomen: Soft and nontender Extremities: No edema Neurological normal affect, normal speech, well oriented Objective Labs Result Diagrams: 08/03/21 11:50 08/03/21 11:50 Labs: Laboratory Results - last 24 hr 08/03/21 08/03/21 08/03/21 11:39 11:50 11:50 WBC 8.6 RBC 5.17 Hgb 14.6 Hct 44.3 MCV 85.7 MCH 28.2 MCHC 32.9 RDW 13.7 Plt Count 267 Neut % (Auto) 55.9 Lymph % (Auto) 30.7 [place] % (Auto) 6.0 Eos % (Auto) 6.1 H Baso % (Auto) 1.3 Neut # (Auto) 4800 Lymph # (Auto) 2600 [place] # (Auto) 500 Eos # (Auto) 500 H Baso # (Auto) 100 D-Dimer Sodium 140 Potassium 3.5 Chloride 104 Carbon Dioxide 27 BUN 15 Creatinine 0.66 Estimated GFR > 60.0 BUN/Creatinine Ratio 22.7 H Glucose 91 Lactate Calcium 8.9 Total Bilirubin 0.4 AST 20 ALT 14 Alkaline Phosphatase 111 NT-Pro-B Natriuret Pep 393 H Total Protein 7.4 Albumin 4.2 Globulin 3.2 Albumin/Globulin Ratio 1.3 SARS-CoV-2 (PCR) Negative 08/03/21 08/03/21 08/03/21 11:50 11:50 14:35 WBC RBC Hgb Hct MCV MCH MCHC RDW Plt Count Neut % (Auto) Lymph % (Auto) [place] % (Auto) Eos % (Auto) Baso % (Auto) Neut # (Auto) Lymph # (Auto) [place] # (Auto) Eos # (Auto) Baso # (Auto) D-Dimer 203 Sodium Potassium Chloride Carbon Dioxide BUN Creatinine Estimated GFR BUN/Creatinine Ratio Glucose Lactate 1.3 Calcium Total Bilirubin AST ALT Alkaline Phosphatase NT-Pro-B Natriuret Pep Total Protein Albumin Globulin Albumin/Globulin Ratio SARS-CoV-2 (PCR) Negative Assessment & Plan Assessment & Plan narrative: 1. Hypertensive emergency -presents with acute dyspnea, chest and abdominal pain with initial BP of 214/111 -EKG shows LVH -received losartan, IV labetalol and nicardipine drip in the ED -symptoms responded to blood pressure lowering however BP lowered to rapidly with nicardipine drip and patient became dizzy -restart nicardipine drip with goal of BP 180-190 systolic which is 10-15% lowering -amlodipine 5 mg daily to start a.m. 08/04 -continue losartan 100 mg q.p.m. and HCTZ 25 mg q.p.m., next doses 08/04 -check troponin -TSH reflex free T4 2. Asthma -appears stable -continue patient's routine inhalers DVT prophylaxis: SCDs Time Spent With Patient Critical Care time: I spent a total of [] minutes of critical care time on this patient's care today; this time is exclusive of procedural time.
--- NOTE | 2021-08-03 18:40 | PM.CN.EICU ---
History of Present Illness Consult details Date Patient Seen: 08/03/21 Chief complaint: SOB Reason for consult: TeleICU program :: This patient was seen via real time interactive two-way audiovisual telecommunication. 61 y.o female w/ PMHx of asthma, HTN and medication non-compliance who presented with chest pain radiating to back and SOB. Initial SBP in 210s. Chest CT was (-) for a dissection. She was started on a nicardipine infusion after having received IV labetalol. SBP went down to 130s and she became dizzy; nicardipine was stopped. Since then, her SBP has risen again; nicardipine has been restarted. Troponins have been (-) and creatinine is normal. [facility] Medical History Asthma exacerbation Bronchitis Hypertension Surgical History H/O tubal ligation Family History Father Hypertension Social History household members: spouse Smoking Status: Never smoker Current Medications Current Medications Medications: Home Medications losartan 100 mg tablet 100 mg PO QPM #0 10/27/17 [History Confirmed 08/03/21] fluticasone 500 mcg-salmeterol 50 mcg/dose blistr powdr for inhalation 1 puff INHALATION BID 10/26/18 [History Confirmed 08/03/21] montelukast 10 mg tablet 10 mg PO DAILY 10/26/18 [History Confirmed 08/03/21] tiotropium bromide 18 mcg capsule with inhalation device (Spiriva with HandiHaler) 18 mcg INHALATION DAILY 08/28/19 [History Confirmed 08/03/21] albuterol sulfate 2.5 mg INHALATION Q4H PRN #90 ml 05/02/20 [Rx Confirmed 08/03/21] ipratropium 0.5 mg-albuterol 3 mg (2.5 mg base)/3 mL nebulization soln 3 ml INHALATION Q4H PRN #90 ml 05/02/20 [Rx Confirmed 08/03/21] albuterol sulfate 1.25 mg/3 mL solution for nebulization 2.5 mg INHALATION Q4-6H PRN #75 ml 04/19/21 [Rx Confirmed 08/03/21] albuterol sulfate 0.63 mg/3 mL solution for nebulization 0.63 mg INHALATION QID PRN #75 ml 07/04/21 [Rx Confirmed 08/03/21] hydrochlorothiazide 25 mg tablet 25 mg PO QPM 08/03/21 [History Confirmed 08/03/21] Visit Medications (administered) Generic Name Dose Route Start Last Admin Trade Name Freq PRN Reason Stop Dose Admin Nicardipine HCl 25 mg/ Sodium 250 mls @ 10 mls/hr 08/03/21 14:30 08/03/21 18:36 Chloride IV 1.5 mg/hr TITRATE MAGDA 15 mls/hr Titration Protocol 1 MG/HR Review of Systems ENT Ears, Nose, Mouth, and Throat: Yes dizziness Cardiovascular Cardiovascular: Reports chest pain and Reports dyspnea Respiratory Respiratory: Reports dyspnea Musculoskeletal Musculoskeletal: Reports back pain Neurologic Neurologic: Reports dizziness Exam Vital Signs (past 8 hours): - 08/03/21 11:35 08/03/21 12:02 08/03/21 12:34 Temperature 98.4 F Pulse Rate 77 73 Respiratory Rate 20 20 21 Blood Pressure 214/111 H Pulse Oximetry 97 97 97 08/03/21 12:36 08/03/21 13:00 08/03/21 13:01 Temperature Pulse Rate 71 67 66 Respiratory Rate 21 21 19 Blood Pressure 191/92 H 227/109 H Pulse Oximetry 97 99 99 08/03/21 13:05 08/03/21 13:18 08/03/21 13:27 Temperature Pulse Rate 71 72 65 Respiratory Rate 23 14 Blood Pressure 242/103 H 243/103 H Pulse Oximetry 98 96 08/03/21 13:30 08/03/21 13:31 08/03/21 13:35 Temperature Pulse Rate 66 67 65 Respiratory Rate 22 26 H 32 H Blood Pressure 241/102 H 225/103 H Pulse Oximetry 97 97 96 08/03/21 13:40 08/03/21 13:45 08/03/21 13:58 Temperature Pulse Rate 64 64 62 Respiratory Rate 22 19 Blood Pressure 222/100 H 189/94 H 189/94 H Pulse Oximetry 95 94 08/03/21 14:00 08/03/21 14:18 08/03/21 14:30 Temperature Pulse Rate 63 67 64 Respiratory Rate 27 H 25 H 32 H Blood Pressure 200/84 H 219/105 H 196/144 H Pulse Oximetry 95 98 97 08/03/21 14:38 08/03/21 14:45 08/03/21 15:00 Temperature Pulse Rate 62 63 65 Respiratory Rate 18 25 H 18 Blood Pressure 207/98 H 213/104 H Pulse Oximetry 98 97 97 08/03/21 15:01 08/03/21 15:05 08/03/21 15:10 Temperature Pulse Rate 65 66 71 Respiratory Rate 18 27 H 26 H Blood Pressure 186/87 H 168/87 H 169/87 H Pulse Oximetry 97 96 96 08/03/21 15:15 08/03/21 15:24 08/03/21 15:30 Temperature Pulse Rate 69 74 69 Respiratory Rate 23 22 19 Blood Pressure 156/81 H 156/83 H 164/88 H Pulse Oximetry 96 97 96 08/03/21 16:00 08/03/21 16:30 08/03/21 16:34 Temperature Pulse Rate 68 67 68 Respiratory Rate 22 21 Blood Pressure 164/95 H 160/87 H 160/87 H Pulse Oximetry 95 95 08/03/21 17:01 08/03/21 17:06 08/03/21 17:25 Temperature 98.2 F Pulse Rate 80 71 70 Respiratory Rate 22 22 Blood Pressure 134/84 218/101 H Pulse Oximetry 95 98 Oxygen Delivery Method Room Air Oxygen Flow Rate 0 Const General: comfortable Resp Effort & Inspection: normal respiratory effort Neuro General: patient alert and patient awake Objective Labs Result Diagrams: 08/03/21 11:50 08/03/21 11:50 Labs: Laboratory Results - last 24 hr 08/03/21 08/03/21 08/03/21 11:39 11:50 11:50 WBC 8.6 RBC 5.17 Hgb 14.6 Hct 44.3 MCV 85.7 MCH 28.2 MCHC 32.9 RDW 13.7 Plt Count 267 Neut % (Auto) 55.9 Lymph % (Auto) 30.7 [place] % (Auto) 6.0 Eos % (Auto) 6.1 H Baso % (Auto) 1.3 Neut # (Auto) 4800 Lymph # (Auto) 2600 [place] # (Auto) 500 Eos # (Auto) 500 H Baso # (Auto) 100 D-Dimer Sodium 140 Potassium 3.5 Chloride 104 Carbon Dioxide 27 BUN 15 Creatinine 0.66 Estimated GFR > 60.0 BUN/Creatinine Ratio 22.7 H Glucose 91 Lactate Calcium 8.9 Total Bilirubin 0.4 AST 20 ALT 14 Alkaline Phosphatase 111 NT-Pro-B Natriuret Pep 393 H Total Protein 7.4 Albumin 4.2 Globulin 3.2 Albumin/Globulin Ratio 1.3 SARS-CoV-2 (PCR) Negative 08/03/21 08/03/21 08/03/21 11:50 11:50 14:35 WBC RBC Hgb Hct MCV MCH MCHC RDW Plt Count Neut % (Auto) Lymph % (Auto) [place] % (Auto) Eos % (Auto) Baso % (Auto) Neut # (Auto) Lymph # (Auto) [place] # (Auto) Eos # (Auto) Baso # (Auto) D-Dimer 203 Sodium Potassium Chloride Carbon Dioxide BUN Creatinine Estimated GFR BUN/Creatinine Ratio Glucose Lactate 1.3 Calcium Total Bilirubin AST ALT Alkaline Phosphatase NT-Pro-B Natriuret Pep Total Protein Albumin Globulin Albumin/Globulin Ratio SARS-CoV-2 (PCR) Negative Assessment & Plan Assessment and plan (1) Hypertensive urgency: Status: Acute Plan: Using SBP of 210, SBP reduction show be < 25% which would be 160 mmHg. I have adjusted the nicardipine titration as she appears to be quite sensitive to it. I have spoken with Dr. Rossi and agree with the plan to start amlodipine 5 mg in the AM and then to resume HCTZ in the afternoon. I have decreased the losartan afternoon dose to 50 mg given the dizziness episode in the ED.
[2021-08-03 19:18] LABS: Troponin I < 0.012 ng/mL (0.01-0.034)
[2021-08-03] MEDS: BUDESONIDE 0.5 MG/2 ML NEB INH (19:35)
--- NOTE | 2021-08-03 20:20 | PM.ICURNDS ---
- :: This patient was seen via real time interactive two-way audiovisual telecommunication. patient remains on cardene gtt with bp parameters of no more than 20-30% reduction I addedd tylenol for a MARC ( she stated it was mild) if it gets any worse I will order a CTH will start low sodiu, cardiac diet
[2021-08-03] MEDS: ACETAMINOPHEN 325 MG TABLET 650 MG PO (20:50)
[2021-08-03 22:40] LABS: TSH w/ Reflex to FT4 2.82 uIU/mL (0.47-4.68)
[2021-08-04] VITALS (63 sets, daily range): BP systolic 139–184; BP diastolic 67–97; PULSE 59–79; RESP 13–29; TEMP 35.7–37.2; O2SAT 92–99
[2021-08-04] MEDS: NICARDIPINE 25 MG in SODIUM CHLORIDE 0.9% 240 ML 15 ML IV (03:20)
[2021-08-04] MEDS: ALBUTEROL/IPRATROPIUM 3 ML AMPUL INH ×2 (07:58→11:52)
[2021-08-04] MEDS: BUDESONIDE 0.5 MG/2 ML NEB INH (08:08)
[2021-08-04] MEDS: AMLODIPINE 5 MG TABLET PO (09:16)
[2021-08-04] MEDS: hydroCHLOROthiazide 25 MG TABLET PO (09:16)
[2021-08-04] MEDS: predniSONE 20 MG TABLET 40 MG PO (09:16)
[2021-08-04] MEDS: MONTELUKAST 10 MG TABLET PO (09:16)
--- NOTE | 2021-08-04 11:45 | PT.IIE ---
Current Diagnoses Hypertensive urgency (08/03/21) Medical History (Last Reviewed 08/03/21 @ 18:43 by Rafael Lutz MD) Asthma exacerbation Bronchitis Hypertension Physical Therapy Inpatient Evaluation/Re-Eval M1 PT/OT-IP Prior Functional Status Start: 08/04/21 13:35 Freq: NEEDED Status: Active Protocol: Document 08/04/21 11:45 AB (Rec: 08/04/21 13:44 AB [id number]) Medical Review Prior Functional Status Medical History Reviewed Yes Communication able to make needs known Mobility and Gait pt stated that she is modified independent with all mobilities and ambulation without AD Social History Household Members spouse Living Arrangements House Number of Floors (Floors) One Floor Number of Stairs To Enter/Railing? no steps to enter Home Environment Standard Height Toilet,Tub/ Shower Home Equipment Straight Cane,Hand Held Shower ,Grab Bars In Shower Additional Social History Comment pt stated that she has a very high bed and spouse assists her and has a step stool she steps up on to get into the bed M2 PT-IP Current Condition Start: 08/04/21 13:35 Freq: NEEDED Status: Active Protocol: Document 08/04/21 11:45 AB (Rec: 08/04/21 13:44 AB [id number]) Physical Therapy Current Condition Current Condition Evaluation Date 08/04/21 Treatment Diagnosis HTN; difficulty in walking Onset Date 08/03/21 M3 PT-IP Subjective Start: 08/04/21 13:35 Freq: NEEDED Status: Active Protocol: Document 08/04/21 11:45 AB (Rec: 08/04/21 13:44 AB [email or web address]) Subjective Physical Therapy Visit Type Type Initial Evaluation Visit Start Time 11:45 Visit Stop Time 12:06 Total Visit Minutes 21 Number of DEVELOPMENT REPRESENTATIVE Visits 0 Physical Therapy Visit Comments Patient Comments pt agreed to do PT Therapy Pain Assessment Pain Present Pain Present Denied Pain M4 PT-IP Mobility and Gait Start: 08/04/21 13:35 Freq: NEEDED Status: Active Protocol: Document 08/04/21 11:45 AB (Rec: 08/04/21 13:44 AB [email or web address]) PT-Bed Mobility Assessment Supine to Sit Supine to Sit Standby Assistance PT-Transfer Assessment Sit to and From Stand Sit to and from Stand Standby Assistance,1 Person Assistance,Use of Upper Extremities Equipment Transfer Assistive Device None,Gait Belt Orthotic/Prosthetic Devices or Brace: No Transfers Transfer Destination Chair Transfer Technique ambulated without AD Transfer Ability Level of Assist Standby Assistance Comments Mobility Comments pt supine in bed and agreed to do PT. BP: 168/73 O2 sat at room air: 95%. completed supine to sit SBA. was able to sit on EOB SBA. completed sit to stand SBA and step transfer to chair without AD SBA. agreed to do ambulation and completed 35 + 25 ft without AD SBA. O2 sat maintained at 95-96% with activity. pt agreed to stay up on chair. positioned on chair. call light and table placed within reach. Gait Assessment Gait Gait Assistance Required: Standby Assistance Distance (Feet) 35 Able to Maintain Weight Bearing Status Yes During Gait Assistive Devices Assistive Device None,Gait Belt Orthotic/Prosthetic Devices or Brace: No Gait Deviations General Gait Pattern Decreased Stride Length, Decreased Feet Clearance Factors Limiting Gait Function Factors Limiting Gait Function Decreased Activity Tolerance, Poor Balance Comments Gait Comments pls refer to mobility section for details PT-Balance Assessment Sitting Balance and Reactions Static Sitting Balance Ability Normal Dynamic Sitting Balance Ability Normal Standing Balance and Reactions Static Standing Balance Ability Good Dynamic Standing Balance Ability Good Device Used without AD M5 PT-IP Objective Assessments Start: 08/04/21 13:35 Freq: NEEDED Status: Active Protocol: Document 08/04/21 11:45 AB (Rec: 08/04/21 13:44 AB [email or web address]) Orientation Orientation/Cognition Level of Alertness Alert Orientation Name,Place,Situation Language Function Ability No Deficits Noted Safety Awareness Understands Safety Issues Memory Description No Deficits Noted Gross Range of Motion Lower Extremity ROM Assessment Within Functional Limits Strength Lower Extremity Strength Hip 4-/5 Knee 4-/5 Ankle 4/5 Coordination Assessment Gross Coordination Gross Coordination WNL Sensation Assessment Sensation Gross Sensation WNL Muscle Tone Muscle Tone WNL Yes M6 PT-IP Treatment Start: 08/04/21 13:35 Freq: NEEDED Status: Active Protocol: Document 08/04/21 11:45 AB (Rec: 08/04/21 13:44 AB [email or web address]) Physical Therapy Treatment Education Education Provided Safety M7 PT-IP Assessment and Plan Start: 08/04/21 13:35 Freq: NEEDED Status: Active Protocol: Document 08/04/21 11:45 AB (Rec: 08/04/21 13:44 AB [email or web address]) PT Summary Assessment and Plan Potential Rehabilitation Potential Good Status of Condition at Evaluation Stable Summary Impairments Pain,ROM,Strength,Balance,Bed Mobility,Transfers,Gait, Activity Tolerance Assessment Summary pt requiring SBA with mobility without AD. pt lives with spouse and will be able to assist pt if needed. pt may go home when medically stable. Goals Bed Mobility Goal Independent Transfer Goal Independent Gait Goal Independent Gait Distance 150 Other Goals up/down step stool SBA Days to Meet Goals 5 Frequency of Treatment Frequency Of Treatment Once a Day Treatment Plan Physical Therapy Treatment Plan Bed Mobility Training,Transfer Training,Gait Training, Therapeutic Exercise,Balance Retraining,Discharge Planning, Neuromuscular Re-ed, Coordination Retraining Other Recommendations and Next Treatment up/down step stool, ambulation Focus Recommendations To Nursing Amount of Assist Needed Standby Assistance Discharge Recommendations PT Discharge Recommendations Home with Assistance Transportation Needs at Discharge Private Vehicle
--- NOTE | 2021-08-04 16:29 | PC.NURSE ---
Discharge: Pt A/O x4, VSS, discharge information review with both pt and . All questions answered, PIV removed, catheter tip intact. Pt taken with all of her belongings via wheelchair and assisted into private vehicle, no further patient contact.
--- NOTE | 2021-08-04 21:42 | P.DS_ITS ---
History of Present Illness History of Present Illness Chief complaint: SOB Narrative: Per Dr. Rossi: Patient is 61-year-old female with history of asthma, chronic hypertension presented to ED with complaints of shortness of breath, chest pain radiating to the back, abdominal pain.? Initial BP was 214/111.? Highest it BP in the ED was 243 systolic.? Patient takes losartan and hydrochlorothiazide for BP control at home.? She states home blood pressures are typically elevated 140s or higher.? She has been compliant with medications. Labs in ED included normal CBC, normal renal function and glucose, N BNP 393, troponin not done/available.? EKG showed sinus rhythm with LVH and repolarization abnormality.? Patient had chest, abdomen and pelvic CT which was un remarkable except for mild scattered ground-glass pulmonary density and bronchial thickening.? Patient has not had fevers, chills or cough.? Patient was administered labetalol 20 mg IV and losartan 100 mg without significant change in blood pressure.? Subsequently she was started on nicardipine drip and blood pressure came down to rapidly in the 130 systolic with patient getting dizzy.? Nicardipine was then discontinued.? Patient blood pressure was 218/101 when she came up to ICU.? She is currently pain-free but does complain of some nausea and wheezing. Discharge Providers Provider Date of admission: 08/03/21 16:23 Discharge Date: 08/04/21 Primary care physician: Dia Wilson MD Consults: 08/04/21 09:00 Consult to Physical Therapy Evaluate & Treat Comment: Physician Instructions: Evaluate and Treat Discharge provider: Paul Singer MD Summary Hospital Course Discharge Diagnosis: 1. Hypertensive emergency 2. Asthma, acute exacerbation Hospital Course: Ms. Vidales presented with chest pain, shortness of breath, and abdominal pain. She was found to have blood pressure initially in the 220s- 240s. She had no elevated troponin, she had no KILEY. She was started on a nicardipine drip and slowly her blood pressure came down. She was restarted on her HCTZ, and losartan. Amlodipine was added. She was noted to be wheezing, she had improvement with nebulizers and steroids and was sent home with a prednisone burst. She was encouraged to take her anti-hypertensives regularly and follow up with her PCP within one week. Discharge time: 35 minutes Exam Vital Signs (past 8 hours): - 08/04/21 14:00 08/04/21 14:56 08/04/21 15:41 Temperature 96.9 F L Pulse Rate 75 73 Respiratory Rate 20 25 H Blood Pressure 152/87 H 182/83 H Pulse Oximetry 94 95 95 Oxygen Delivery Method Room Air Oxygen Flow Rate 0 Narrative Exam Narrative: General:?no acute distress Lungs:? Clear to auscultation Heart: Regular rhythm without murmur Abdomen:? Soft and nontender Extremities:? No edema Neurological normal affect, normal speech, well oriented Objective Labs Result Diagrams: 08/03/21 11:50 08/03/21 11:50 Labs: Laboratory Results - last 24 hr 08/03/21 11:50 TSH 2.82 PFSH Medical History Asthma exacerbation Bronchitis Hypertension Surgical History H/O tubal ligation Family History Father Hypertension Social History household members: spouse Smoking Status: Never smoker Discharge Plan Discharge Plan Patient Disposition: Home Provider Discharge Comment: Ms. Vidales came in with high blood pressure. She did well with new medications here. She was also slightly wheezing from her asthma. She will be discharged on one new blood pressure medicine, and a few more days of prednisone. Please follow up with your PCP within one week. Please make sure you don't miss any of your medicines. Discharge orders & Medications Prescriptions: New prednisone 20 mg Tablet 40 mg PO DAILY Qty: 8 RF: 0 amlodipine [Norvasc] 5 mg Tablet 5 mg PO DAILY Qty: 30 RF: 0 Continued losartan 100 MG tablet 100 mg PO QPM Qty: 0 RF: 0 Spiriva with HandiHaler 18 mcg capsule, w/inhalation device 18 mcg INHALATION DAILY RF: 0 albuterol sulfate 2.5 mg /3 mL (0.083 %) solution for nebulization 2.5 mg INHALATION Q4H PRN (Reason: shortness of breath or wheezing) Qty: 90 RF: 0 ipratropium-albuterol 0.5 mg-3 mg(2.5 mg base)/3 mL solution for nebulization 3 ml INHALATION Q4H PRN (Reason: shortness of breath or wheezing) Qty: 90 RF: 0 albuterol sulfate 0.63 mg/3 mL solution for nebulization 0.63 mg INHALATION QID PRN (Reason: shortness of breath or wheezing) Qty: 75 RF: 0 fluticasone propion-salmeterol 500-50 mcg/dose blister with device 1 puff Inhalation BID RF: 0 montelukast 10 mg tablet 10 mg PO DAILY RF: 0 albuterol sulfate 1.25 mg/3 mL solution for nebulization 2.5 mg inhalation Q4-6H PRN (Reason: shortness of breath or wheezing) Qty: 75 RF: 0 hydrochlorothiazide 25 mg Tablet 25 mg PO QPM RF: 0 Follow up/Referrals: Dia Wilson MD [Primary Care Provider] - Diet/Activity/Treatments Diet: Low-sodium and Low-cholesterol Discharge Data Primary Care Provider: Dia Wilson Quality MIPS - DC The patient has current or prior documentation of left ventricular ejection fraction (LVEF) less than 40%, or moderate or severely depressed left ventricular systolic function.: No
== END 2021-08-04 16:00 | disposition home or self-care (01) | DRG 305 ==
LOC: ED 15:29 → AC 16:24 → ICU 08-04 07:03
PROVIDERS: Admitting Provider Internal Medicine; Emergency Provider Emergency Medicine; PCP Internal Medicine; Referring Provider Emergency Medicine; Visit Provider Internal Medicine
DX: I16.1 Hypertensive emergency (principal); J45.901 Unspecified asthma with (acute) exacerbation; R42 Dizziness and giddiness; Z20.822 Contact with and (suspected) exposure to COVID-19
CPT/HCPCS: 36415; 71046; 71275; 74174; 80053; 83605; 83880; 84443; 84484; 85025; 85379; 87635; 93005; 94150; 94640; 94760; 96374; 97161; 99284; 99291; C9803

== ENCOUNTER → 2022-07-11 07:26 | Outpatient (CLI) | payer OTHER, SELFPAY ==
[2021-08-03 17:36] VITALS: BMI 27.2
--- NOTE | 2022-07-11 07:27 | DI.MG.S_ITS ---
BILATERAL DIGITAL SCREENING MAMMOGRAM 3D/2D WITH CAD: 07/11/2022 CLINICAL: Routine screening. Family history of breast cancer. Comparison is made to exams dated: 06/23/2021 mammogram, 07/22/2020 mammogram, 06/22/2020 mammogram - [facility], and 02/04/2019 mammogram - [facility]. There are scattered areas of fibroglandular density in both breasts (category b / 25%-50% glandular tissue). Current study was also evaluated with a Computer Aided Detection (CAD) system. There are oval lymph nodes in the right breast posterior depth superior region seen on the mediolateral oblique view only. They are more prominent and increased in size. There are lymph nodes with eccentric cortical thickening with a circumscribed margin in the left breast posterior depth superior region seen on the mediolateral oblique view only. They are more prominent and increased in size. No other significant masses or calcifications are seen in either breast. IMPRESSION: INCOMPLETE: NEEDS ADDITIONAL IMAGING EVALUATION The oval lymph nodes in the right breast posterior depth superior region seen on the mediolateral oblique view only are indeterminate. An ultrasound is recommended. The lymph nodes with eccentric cortical thickening in the left breast posterior depth superior region seen on the mediolateral oblique view only are indeterminate. An ultrasound is recommended. Based on the Tyrer Cuzick model (a risk assessment model) the patient's lifetime risk is 6.7% and her 10 year risk is 2.7%. According to the ACR, ACS, and NCCN guidelines, an annual breast MRI exam along with mammogram is recommended if the patient's lifetime risk is 20% or greater. This exam was interpreted at Station ID: [id number]. NOTE: For mammograms, a report in lay terms will be sent to the patient. Approximately 15% of breast malignancies will not be visualized mammographically. In the management of a palpable breast mass, a negative mammogram must not discourage biopsy of a clinically suspicious lesion. Electronically Signed By: Cristian Greco M.D. at[facility]/:07/11/2022 12:52:42 letter sent: Additional Imaging Needed ACR BI-RADS Category 0: Incomplete 3340F
== END ==
PROVIDERS: PCP Internal Medicine; Referring Provider Internal Medicine; Visit Provider Internal Medicine
DX: Z12.31 Encounter for screening mammogram for malignant neoplasm of breast (principal); Z80.3 Family history of malignant neoplasm of breast
CPT/HCPCS: 77063; 77067

== ENCOUNTER → 2022-10-03 07:53 | Outpatient (CLI) | payer OTHER, SELFPAY ==
[2021-08-03 17:36] VITALS: BMI 27.2
--- NOTE | 2022-10-03 | DI.US.S_ITS ---
ULTRASOUND OF LEFT BREAST AND AXILLA: 10/03/2022 CLINICAL: Patient returns today to evaluate a focal asymmetry in the left axilla. Comparison is made to exams dated: 07/11/2022 mammogram and 06/23/2021 mammogram - [facility]. Color flow and real-time ultrasound of the left breast axilla were performed. Smiht scale images of the real-time examination were reviewed. There is a benign normal lymph node with a circumscribed margin in the left axilla. This normal lymph node displays fatty hilum. IMPRESSION: BENIGN There is no sonographic evidence of malignancy. Benign left axillary lymph node. Exam findings were conveyed to the patient. A 1 year screening mammogram is recommended. This exam was interpreted at Station ID: [id number]. Electronically Signed By: Josiah Lopez M.D. [facility] [place]/:10/03/2022 08:52:34 letter sent: Normal Exam Ultrasound BI-RADS: 2 Benign
--- NOTE | 2022-10-03 | DI.US.S_ITS ---
ULTRASOUND OF RIGHT BREAST AND AXILLA: 10/03/2022 CLINICAL: Patient returns today to evaluate a focal asymmetry in the right axilla. Comparison is made to exams dated: 07/11/2022 mammogram and 06/23/2021 mammogram - [facility]. Color flow and real-time ultrasound of the right breast axilla were performed. Smith scale images of the real-time examination were reviewed. There is a benign normal lymph node with a circumscribed margin in the right axilla. This normal lymph node displays fatty hilum. IMPRESSION: BENIGN There is no sonographic evidence of malignancy. Benign right axillary node. Exam findings were conveyed to the patient. A 1 year screening mammogram is recommended. This exam was interpreted at Station ID: [id number]. Electronically Signed By: Josiah Lopez M.D. [facility]/:10/03/2022 08:54:35 letter sent: Normal Exam Ultrasound BI-RADS: 2 Benign
== END ==
PROVIDERS: PCP Internal Medicine; Referring Provider Physician Assistant; Visit Provider Physician Assistant
DX: R92.8 Other abnormal and inconclusive findings on diagnostic imaging of breast (principal)
CPT/HCPCS: 76882

== ENCOUNTER 2022-11-21 20:51 | Emergency (ER) | payer OTHER, SELFPAY ==
[2021-08-03 17:36] VITALS: BMI 27.2
[2022-11-21 21:05] VITALS: BP 170/100; PULSE 82; RESP 18; TEMP 36.4; O2SAT 96
[2022-11-21 22:45] VITALS: BP 166/96; PULSE 80; RESP 18; O2SAT 97
--- NOTE | 2022-11-22 00:19 | ED_ITS ---
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 She was seen at [facility] on the with similar complaints with extremely thorough workup including labs, CT, CTA and after droperidol and Benadryl headache was significantly improved. Care was discussed with Neurosurgery at [facility] and the plan was for the neurosurgery office to contact the patient some time for Monday of this week for outpatient follow-up. The newly diagnosed brain aneurysms felt to be incidental and not cause a joselin with these headaches. She states the last time she had a headache this bad was 8 months ago. She complains of photophobia, pain along the left side of her head down into her neck and up into her shoulders. She is tried Tylenol and Excedrin neither of which have been effective after she woke up from the emergency department visit on the and felt a headache returning. She has had single episode of emesis and continues to feel quite nauseated from the pain. She describes no fevers, palpitations, cough, diarrhea. She notes no speech difficulties, confusion, paresthesias. She does note that her chronic knee pain continues to bother her. She recently started and injectable asthma medicine every 2 months. She is been on this now for over 3 months and is wondering if this might be a side effect. Related Data Home Medications Medication Instructions Recorded Confirmed losartan 100 mg tablet 100 mg PO QPM ##0 10/27/17 08/03/21 fluticasone 500 mcg-salmeterol 50 1 puff inhalation BID 10/26/18 08/03/21 mcg/dose blistr powdr for inhalation montelukast 10 mg tablet 10 mg PO DAILY 10/26/18 08/03/21 tiotropium bromide 18 mcg capsule 18 mcg inhalation DAILY 08/28/19 08/03/21 with inhalation device (Spiriva with HandiHaler) hydrochlorothiazide 25 mg tablet 25 mg PO QPM 08/03/21 08/03/21 Previous Rx's Medication Instructions Recorded albuterol sulfate 2.5 mg/3 mL 2.5 mg (3 mL) inhalation Q4H PRN 05/02/20 (0.083 %) solution for nebulization shortness of breath or wheezing #90 mL ipratropium 0.5 mg-albuterol 3 mg 3 ml inhalation Q4H PRN shortness 05/02/20 (2.5 mg base)/3 mL nebulization of breath or wheezing #90 mL soln albuterol sulfate 1.25 mg/3 mL 2.5 mg (6 mL) inhalation Q4-6H PRN 04/19/21 solution for nebulization shortness of breath or wheezing #75 mL albuterol sulfate 0.63 mg/3 mL 0.63 mg (3 mL) inhalation QID PRN 07/04/21 solution for nebulization shortness of breath or wheezing #75 mL amlodipine 5 mg tablet (Norvasc) 5 mg PO DAILY #30 tabs 08/04/21 prednisone 20 mg tablet 40 mg PO DAILY #8 tabs 08/04/21 Allergies Allergy/AdvReac Type Severity Reaction Status Date / Time aspirin [ASPIRIN] AdvReac Unknown MAKES HER Verified 08/03/21 11:35 BLEED Review of Systems Review of Systems Narrative: Remainder of complete review of systems is otherwise unremarkable except for that included in the HPI. Patient History Medical History (Updated 11/22/22 @ 02:44 by Ashley Vu MD) Asthma exacerbation Brain aneurysm Bronchitis Hypertension Surgical History H/O tubal ligation Family History Father Hypertension Social History household members: spouse Smoking Status: Never smoker Smoking Status: Never smoker alcohol intake frequency: holidays/special occasions only Substance Use Type: does not use Exam Initial Vital Signs Initial Vital Signs: Vital Signs Temperature 97.6 F 11/21/22 21:05 Pulse Rate 82 11/21/22 21:05 Respiratory Rate 18 11/21/22 21:05 Blood Pressure 170/100 H 11/21/22 21:05 Pulse Oximetry 96 11/21/22 21:05 Oxygen Delivery Method 11/21/22 21:05 General: Healthy appearing, with pain and photophobia Able to give a complete and coherent history. Well-nourished well-developed HEENT: Moist mucous membranes, normal sclera with reactive pupils, Neck: Some minor paraspinous cervical spasm and tenderness into the trapezius muscles without any nuchal rigidity or meningismus signs. Respiratory: Lungs are clear to auscultation, no wheezing no rales no rhonchi. Full and symmetrical air movement Cardiac: Regular rate and rhythm no murmurs no bruits Abdomen: Soft, nontender, good bowel tones, no flank pain Skin: Warm and dry, no rashes Neurologic: Grossly neurologically intact with no obvious asymmetries or abnormalities Extremities: No trauma, well perfused Psych: Cooperative, appropriate insight and affect Course Orders Ordered: ED Orders 11/22/22 00:33 Complete Blood Count AUTO DIFF Stat Comprehensive Metabolic Panel Stat Discontinued Medications Dexamethasone (Dexamethasone 10 Mg/Ml Vial) 10 mg IV NOW ONE Stop: 11/22/22 00:34 Last Admin: 11/22/22 00:55 Dose: 10 mg Documented By: SHERRI Diphenhydramine HCl (Diphenhydramine 50 Mg/Ml Vial) 25 mg IV NOW ONE Stop: 11/22/22 00:34 Last Admin: 11/22/22 00:56 Dose: 25 mg Documented By: SHERRI Sodium Chloride (Normal Saline 0.9%) 1,000 mls @ 1,000 mls/hr IV BOLUS ONE Stop: 11/22/22 01:32 Last Infusion: 11/22/22 01:23 Dose: 0 mls/hr Documented By: Admin: 11/22/22 00:55 Dose: 1,000 mls/hr Documented By: GC Ketorolac Tromethamine (Ketorolac 30 Mg/Ml Vial) 15 mg IV NOW ONE Stop: 11/22/22 00:34 Last Admin: 11/22/22 00:55 Dose: 15 mg Documented By: GC Metoclopramide HCl (Metoclopramide 10 Mg/2 Ml Inj) 10 mg IV NOW ONE Stop: 11/22/22 00:34 Last Admin: 11/22/22 00:56 Dose: 10 mg Documented By: SHERRI Vital Signs Vital signs: Vital Signs - 8 hr 11/21/22 21:05 11/21/22 22:45 Temperature 97.6 F Pulse Rate 82 80 Respiratory Rate 18 18 Blood Pressure 170/100 H 166/96 H Pulse Oximetry 96 97 Oxygen Delivery Method Room Air Room Air MDM - Back Pain/Injury Medical Records Medical records narrative: CC: Complicating co-morbidities: Corroborating data: Data collected from: patient, Social determinants of health that may influence the patients condition: Medical records reviewed: Differential considered: Exam documented above, pertinent findings include: Lab Test results independently reviewed as above. Pertinent findings: CBC with mild leukocytosis similar to CBC from 48 hours ago Chemistries show slightly low potassium at 3.2, unchanged creatinine at 1 remainder of chemistries are unremarkable Imaging studies independently reviewed: Consultations: Treatments: Re-evaluations: Discussion: Disposition: see below, along with detailed discharge instructions that have been reviewed with patient as well as indications for ED re-evaluation and additional outpatient follow up Lab Data 11/21/22 21:36 11/21/22 21:36 Labs: Lab Results 11/21/22 11/21/22 Range/Units 21:36 21:36 WBC 14.7 H (4.5-11.0) X10^3/uL RBC 4.98 (4.0-5.2) X10^6/uL Hgb 14.3 (12.0-16.0) g/dL Hct 42.5 (36-46) % MCV 85.3 (80-100) fL MCH 28.8 (26-34) PG MCHC 33.7 (30-36) % RDW 13.0 (11.6-14.8) % Plt Count 344 (150-400) X10^3/uL Neut % (Auto) 74.0 (50-75) % Lymph % (Auto) 19.8 L (25-40) % Andrew % (Auto) 4.8 (3-14) % Eos % (Auto) 0.7 L (2-4) % Baso % (Auto) 0.7 (0-2) % Neut # (Auto) 69360 H (2155-5293) /uL Lymph # (Auto) 2900 (9838-3626) /uL Andrew # (Auto) 700 (0-900) /uL Eos # (Auto) 100 (0-450) /uL Baso # (Auto) 100 (0-100) /uL Sodium 139 (137-145) mmol/L Potassium 3.2 L (3.4-5.1) mmol/L Chloride 102 (98-107) mmol/L Carbon Dioxide 27 (22-32) mmol/L BUN 19 H (7-17) mg/dL Creatinine 1.05 H (0.52-1.04) mg/dL Estimated GFR > 60 (>60) mL/min BUN/Creatinine Ratio 18.1 (6-22) Glucose 121 H (80-110) mg/dL Calcium 9.7 (8.4-10.2) mg/dL Total Bilirubin 0.6 (0.2-1.3) mg/dL AST 30 (14-36) IU/L ALT 30 (<35) IU/L Alkaline Phosphatase 93 (38-126) U/L Total Protein 9.1 H (6.3-8.2) g/dL Albumin 4.8 (3.5-5.0) g/dL Globulin 4.3 H (1.7-4.1) g/dL Albumin/Globulin Ratio 1.1 (1.0-2.8) MDM Narrative Medical decision making narrative: CC: Severe left-sided headache. Continued problem over the last 3 days with prior ER visit, worsening again with uncertain prognosis and life-threatening possibility Complicating co-morbidities: Hypertension, morbid obesity, possible medication interaction probable intermittent migraine Corroborating data: Data collected from: patient, Medical records reviewed: ER note from [facility] from November 19 reviewed in detail including blood work, response medications and imaging Differential considered: Migraine, meningitis, herald bleed, aneurysmal bleed, stroke, hypertension, sinusitis Exam documented above, pertinent findings include: Headache with no significant findings otherwise Lab Test results independently reviewed as above. Pertinent findings: CBC is unremarkable Chemistries reveal slightly low potassium at 3.2 remainder of chemistries are unremarkable Imaging studies from [facility], head CT and CTA are reviewed. Incidental aneurysm noted, no bleed or other abnormalities Treatments: IV fluid, parenteral Toradol, Reglan, Benadryl with significant relief pain. She is given oral potassium after her hypokalemia is identified. Re-evaluations: Patient is re-evaluated after medications and is feeling dramatically better. Pain is entirely gone and she is very pleased with overall results looking forward to going to sleep in her own bed as soon as she is discharged. Discussion: 62-year-old woman presents with recurrent headache, apparently was better after Benadryl and Inapsine given on Monday night but when she woke up Monday morning the head had returned. She does have photophobia and nausea and notes that her last similar headache was 8 months ago. I suspect that this is a migraine variant rather than anything with more sinister etiology. Of note, the emergency physician at [facility] did review her care with Neurosurgery at [facility] and there outpatient team is planning to contact her early this week for outpatient follow-up regarding the incidentally noted 2-3 mm brain aneurysm. At this time she is not looking like she has acute neurologic findings, simply that she has a severe headache. Will treat for migraine with fluids, Toradol, Reglan, Benadryl and re-evaluate. Will go ahead and check repeat labs however, given imaging studies done less than 48 hours ago I do not think we need to repeat imaging this time Disposition: see below, along with detailed discharge instructions that have been reviewed with patient as well as indications for ED re-evaluation and additional outpatient follow up Discharge Plan Departure Patient Disposition: Home Clinical Impression: Brain aneurysm, Acute hypokalemia Headache, migraine, with status migrainosus Qualifiers: Migraine type: unspecified Intractability: not intractable Qualified Code(s): G43.901 - Migraine, unspecified, not intractable, with status migrainosus Instructions: DI for Migraine Activity Restrictions/Additional Instructions: Thank you for coming in today Your blood work was reassuring as was your physical exam. I did review all of the notes from [facility] on November [address] scans of your head. Because these were just recently done, I did not feel it was appropriate nor required to repeat them today. I treated you for a migraine headache including a dose of steroid medication. Often this helps so that tomorrow morning you wake up headache free. It is okay to use Excedrin if the headache returns. Excedrin usually is more effective th an Tylenol but both can be used. With a CT scan done on the , they did find a small aneurysm in your brain. I think that this was an incidental finding and not the cause of your pain. The ER doctor there had talk to a neurosurgeon at [facility] and the [facility] outpatient Neurosurgery Clinic was going to contact you before Monday of this week to set up an outpatient consultation appointment regarding this small aneurysm. In the meantime, it is important that you continue to take all of your medications. I would encourage you to follow-up with your regular doctor to discuss your m igraine headaches and see if there are other options that your doctor might suggest help control them if they return. If you find that you are getting worse or develop any new symptoms, please feel free to return to the emergency department for further evaluation. Prescriptions: No Action losartan 100 MG tablet 100 mg PO QPM Qty: 0 Spiriva with HandiHaler 18 mcg capsule, w/inhalation device 18 mcg INHALATION DAILY albuterol sulfate 2.5 mg /3 mL (0.083 %) solution for nebulization 2.5 mg INHALATION Q4H PRN (Reason: shortness of breath or wheezing) Qty: 90 0RF Rx Instructions: 3 ml every 2-4 hours in between duoneb breathing treatments as needed ipratropium-albuterol 0.5 mg-3 mg(2.5 mg base)/3 mL solution for nebulization 3 ml INHALATION Q4H PRN (Reason: shortness of breath or wheezing) Qty: 90 0RF albuterol sulfate 0.63 mg/3 mL solution for nebulization 0.63 mg INHALATION QID PRN (Reason: shortness of breath or wheezing) Qty: 75 0RF fluticasone propion-salmeterol 500-50 mcg/dose blister with device 1 puff Inhalation BID montelukast 10 mg tablet 10 mg PO DAILY albuterol sulfate 1.25 mg/3 mL solution for nebulization 2.5 mg inhalation Q4-6H PRN (Reason: shortness of breath or wheezing) Qty: 75 0RF hydrochlorothiazide 25 mg Tablet 25 mg PO QPM prednisone 20 mg Tablet 40 mg PO DAILY Qty: 8 0RF amlodipine [Norvasc] 5 mg Tablet 5 mg PO DAILY Qty: 30 0RF Referrals: Dia Wilson MD [Primary Care Provider] - Stand Alone Forms: Patient Portal/API
[2022-11-22 00:42] LABS: Add Manual Diff / Slide Review NO; Basophils Absolute Auto 100 /uL (0-100); Basophils Percent Auto 0.7 % (0-2); Eosinophils Absolute Auto 100 /uL (0-450); Eosinophils Percent Auto 0.7 % (2-4); Hematocrit 42.5 % (36-46); Hemoglobin 14.3 g/dL (12.0-16.0); Lymphocytes Absolute Auto 2900 /uL (1100-4500); Lymphocytes Percent Auto 19.8 % (25-40); Mean Corpuscular HGB Conc 33.7 % (30-36); Mean Corpuscular Hemoglobin 28.8 PG (26-34); Mean Corpuscular Volume 85.3 fL (80-100); Monocytes Absolute Auto 700 /uL (0-900); Monocytes Percent Auto 4.8 % (3-14); Neutrophils Absolute Auto 10900 /uL (1500-7000); Platelet Count 344 X10^3/uL (150-400); Red Blood Cell Count 4.98 X10^6/uL (4.0-5.2); White Blood Cell Count 14.7 X10^3/uL (4.5-11.0)
[2022-11-22 00:49] LABS: Alanine Aminotransferase 30 IU/L (<35); Albumin 4.8 g/dL (3.5-5.0); Albumin Globulin Ratio 1.1 (1.0-2.8); Alkaline Phosphatase 93 U/L (38-126); Aspartate Aminotransferase 30 IU/L (14-36); BUN Creatinine Ratio 18.1 (6-22); Bilirubin Total 0.6 mg/dL (0.2-1.3); Blood Urea Nitrogen 19 mg/dL (7-17); Calcium 9.7 mg/dL (8.4-10.2); Carbon Dioxide 27 mmol/L (22-32); Chloride 102 mmol/L (98-107); Estimated Glomerular Filt Rate > 60 mL/min (>60); Globulin 4.3 g/dL (1.7-4.1); Glucose 121 mg/dL (80-110); HEMOLYSIS < 15 (0-50); Potassium 3.2 mmol/L (3.4-5.1); Sodium 139 mmol/L (137-145); Total Protein 9.1 g/dL (6.3-8.2)
[2022-11-22] MEDS: DEXAMETHASONE 10 MG/ML VIAL IV (00:55)
[2022-11-22] MEDS: KETOROLAC 30 MG/ML VIAL 15 MG IV (00:55)
[2022-11-22] MEDS: SODIUM CHLORIDE 0.9% 1,000 ML 1000 ML IV (00:55)
[2022-11-22] MEDS: METOCLOPRAMIDE 10 MG/2 ML INJ IV (00:56)
[2022-11-22] MEDS: diphenhydrAMINE 50 MG/ML VIAL 25 MG IV (00:56)
[2022-11-22] MEDS: POTASSIUM CHLORIDE 20 MEQ TAB 40 MEQ PO (02:38)
[2022-11-22 02:42] VITALS: BP 127/60; PULSE 72; RESP 16; TEMP 36.2; O2SAT 97
== END 2022-11-22 02:48 | disposition home or self-care (01) ==
PROVIDERS: Emergency Provider Emergency Medicine; PCP Internal Medicine
DX: I67.1 Cerebral aneurysm, nonruptured (principal); G43.901 Migraine, unspecified, not intractable, with status migrainosus; E87.6 Hypokalemia
CPT/HCPCS: 36415; 80053; 85025; 96374; 96375; 99284; J1100; J1200; J1885; J2765

== ENCOUNTER 2023-02-26 22:01 | Emergency (ER) | payer OTHER, SELFPAY ==
[2021-08-03 17:36] VITALS: BMI 27.2
[2023-02-26 22:12] VITALS: BP 189/80; PULSE 72; RESP 16; TEMP 36.4; O2SAT 96; BMI 28.3
--- NOTE | 2023-02-26 22:21 | DI.CT.S_ITS ---
PROCEDURE: CT ANGIO HEAD INDICATIONS: Headache with vomiting TECHNIQUE: After the administration of intravenous contrast, 1 mm thick sections acquired through the [place]. Postcontrast 4.5 mm thick sections then re-acquired from the foramen magnum to the vertex. 10 mm thick ufmcqop-hvwrynrvj-ajcoabqeux (MIP) reformats were acquired of the central intracranial vasculature. For radiation dose reduction, the following was used: automated exposure control, adjustment of mA and/or kV according to patient size. COMPARISON: [facility], US, US AXILLARY ONLY LT, 10/03/2022, 8:27. [facility], CT, CT ANGIO HEAD AND NECK, 11/19/2022, 23:38. None. FINDINGS: Image quality: Excellent. BRAIN: CSF spaces: Basal cisterns are patent. No extra-axial fluid collections. Ventricles are normal in size and shape. Brain: No hematoma collections, mass, or mass effect. Smith-white matter interface appears preserved. No abnormal intracranial enhancement. Skull and face: Calvarium and facial bones appear intact, without suspicious lesions. Orbits appear normal. Sinuses: Sinuses and mastoids are clear. HEAD CT ANGIOGRAPHY: Anterior circulation: Intracranial internal carotid arteries are normal in size and appear patent bilaterally. The paired anterior cerebral arteries appear patent bilaterally. There is a hypoplastic A1 segment of the left anterior cerebral artery redemonstrated. The anterior communicating artery also appears patent. The middle cerebral arteries appear patent bilaterally. No high-grade stenosis, occlusion, or filling defects. No cerebral aneurysms identified. Posterior circulation: Visualized portions of the vertebral arteries demonstrate a new stent graft within the distal right vertebral artery without a residual opacified aneurysm identified. The visualized vertebral arteries appear patent and join to sub apply a patent basilar artery. The posterior cerebral arteries appears patent bilaterally. No high-grade stenosis, occlusion, or filling defects. No cerebral aneurysms identified. IMPRESSION: 1. Evaluation for intracranial hemorrhage is limited in the absence of noncontrast images. No discrete hematoma collection identified. 2. Status post placement of an endovascular stent graft in the distal right vertebral artery with exclusion of the previously visualized aneurysm. 3. No high-grade stenosis or occlusion of the central intracranial arteries. Dictated by: Aniceto Gama M.D. on 02/26/2023 at 23:16 Approved by: Aniceto Gama M.D. on 02/26/2023 at 23:23
[2023-02-27 00:32] VITALS: BP 133/77; PULSE 65; RESP 20; O2SAT 99
--- NOTE | 2023-02-27 01:14 | ED.HA ---
HPI - Headache General Chief Complaint: Headache Stated Complaint: Vomiting Time Seen by Provider: 02/27/23 00:44 Mode of arrival: Ambulatory History of Present Illness HPI Narrative: 63-year-old woman with a history of brain aneurysm with recent stenting at [facility], stroke with right-sided persistent paresthesias any ear fullness, hypertension, anxiety, persistent migraine headaches that preceded the stroke and the aneurysm repair presents with headache. She states that since the aneurysm repair, she was discharged from [facility] on February 10, she is had daily headaches. She uses Tylenol throughout the day and a single oxycodone daily. Today she is been having vomiting secondary to the headache and is concerned about her stomach. She has a follow-up appointment with her primary care doctor tomorrow regarding headaches, stroke follow-up and the recent aneurysm repair. She does not report fevers or chills. She notes the same neurologic complaints that she is had since the stroke event which include paresthesias on the right side, ear fullness and tinnitus on the right side with ataxia with a drift toward the right. She is not noticing vision changes. She describes no chest pain, palpitations fevers, abdominal pain or dysuria. Related Data Home Medications Medication Instructions Recorded Confirmed losartan 100 mg tablet 100 mg PO QPM ##0 10/27/17 08/03/21 fluticasone 500 mcg-salmeterol 50 1 puff inhalation BID 10/26/18 08/03/21 mcg/dose blistr powdr for inhalation montelukast 10 mg tablet 10 mg PO DAILY 10/26/18 08/03/21 tiotropium bromide 18 mcg capsule 18 mcg inhalation DAILY 08/28/19 08/03/21 with inhalation device (Spiriva with HandiHaler) hydrochlorothiazide 25 mg tablet 25 mg PO QPM 08/03/21 08/03/21 Previous Rx's Medication Instructions Recorded albuterol sulfate 2.5 mg/3 mL 2.5 mg (3 mL) inhalation Q4H PRN 05/02/20 (0.083 %) solution for nebulization shortness of breath or wheezing #90 mL ipratropium 0.5 mg-albuterol 3 mg 3 ml inhalation Q4H PRN shortness 05/02/20 (2.5 mg base)/3 mL nebulization of breath or wheezing #90 mL soln albuterol sulfate 1.25 mg/3 mL 2.5 mg (6 mL) inhalation Q4-6H PRN 04/19/21 solution for nebulization shortness of breath or wheezing #75 mL albuterol sulfate 0.63 mg/3 mL 0.63 mg (3 mL) inhalation QID PRN 07/04/21 solution for nebulization shortness of breath or wheezing #75 mL amlodipine 5 mg tablet (Norvasc) 5 mg PO DAILY #30 tabs 08/04/21 prednisone 20 mg tablet 40 mg PO DAILY #8 tabs 08/04/21 Allergies Allergy/AdvReac Type Severity Reaction Status Date / Time aspirin [ASPIRIN] AdvReac Unknown MAKES HER Verified 08/03/21 11:35 BLEED Review of Systems Review of Systems Narrative: Pertinent positive and negative findings as per HPI Patient History Medical History (Updated 02/27/23 @ 04:07 by Ashley Vu MD) Asthma exacerbation Brain aneurysm Bronchitis Chronic migraine Hypertension Surgical History H/O tubal ligation Family History Father Hypertension Social History household members: spouse Smoking Status: Never smoker Smoking Status: Never smoker alcohol intake frequency: holidays/special occasions only Substance Use Type: does not use Exam Initial Vital Signs Initial Vital Signs: Vital Signs Temperature 97.6 F 02/26/23 22:12 Pulse Rate 72 02/26/23 22:12 Respiratory Rate 16 02/26/23 22:12 Blood Pressure 189/80 H 02/26/23 22:12 Pulse Oximetry 96 02/26/23 22:12 Oxygen Delivery Method Room Air 02/26/23 22:12 General: Healthy appearing, in mild distress. Able to give a complete and coherent history. Well-nourished well-developed HEENT: Moist mucous membranes, normal sclera with reactive pupils, Neck: No JVD, supple Respiratory: Lungs are clear to auscultation, no wheezing no rales no rhonchi. Full and symmetrical air movement Cardiac: Regular rate and rhythm no murmurs no bruits Abdomen: Soft, mild epigastric tenderness secondary to vomiting, good bowel tones, no flank pain Skin: Warm and dry, no rashes Neurologic: Paresthesias along the entire right side. No abnormalities of the right ear despite fullness and discomfort. All of this is chronic. Extremities: No trauma, well perfused Psych: Cooperative, appropriate insight and affect Course Orders Ordered: ED Orders 02/26/23 22:21 CT angio head Stat Discontinued Medications Dexamethasone (Dexamethasone 10 Mg/Ml Vial) 10 mg IV NOW ONE Stop: 02/27/23 01:33 Last Admin: 02/27/23 02:06 Dose: 10 mg Documented By: LEONILA Diphenhydramine HCl (Diphenhydramine 50 Mg/Ml Vial) 25 mg IV NOW ONE Stop: 02/27/23 01:33 Last Admin: 02/27/23 02:06 Dose: 25 mg Documented By: LEONILA Sodium Chloride (Normal Saline 0.9%) 1,000 mls @ 1,000 mls/hr IV BOLUS ONE Stop: 02/27/23 02:31 Last Infusion: 02/27/23 03:10 Dose: 0 mls/hr Documented By: Admin: 02/27/23 02:05 Dose: 1,000 mls/hr Documented By: LEONILA Prochlorperazine (Prochlorperazine 10 Mg/2 Ml Vial) 10 mg IV NOW ONE Stop: 02/27/23 01:33 Last Admin: 02/27/23 02:05 Dose: 10 mg Documented By: LEONILA Vital Signs Vital signs: Vital Signs - 8 hr 02/26/23 22:12 02/27/23 00:32 02/27/23 02:05 Temperature 97.6 F Pulse Rate 72 65 73 Respiratory Rate 16 20 Blood Pressure 189/80 H 133/77 133/77 Pulse Oximetry 96 99 Oxygen Delivery Method Room Air Room Air 02/27/23 02:37 Temperature Pulse Rate 62 Respiratory Rate 18 Blood Pressure 132/72 Pulse Oximetry 99 Oxygen Delivery Method Room Air MDM - Headache MDM Narrative Medical decision making narrative: CC: Headache in the setting of stroke and recent placement of endovascular stent graft in the distal right vertebral artery. Complicating co-morbidities: Persistent paresthesias after stroke related to her aneurysm, chronic daily headaches, hypertension Data collected from: patient Social determinants of health that may influence the patients condition: Patient 2nd language is Swedish, she lives in [place] somewhat difficult access to care due to distances Medical records reviewed: [facility] ER notes from November 21 with diagnosis of the aneurysm, ER notes from [place] OctoberNovember 22 with treatment of migraine headache, primary care notes from [facility] are reviewed Differential considered: Leaking around her aneurysm, recurrent stroke, migraine headache, chronic daily headache, Exam documented above, pertinent findings include: Paresthesias on the right side that are not new and are related to the recent stroke related related to the recent aneurysmal repair. Remainder of exam is unremarkable Lab Test results independently reviewed as above. Pertinent findings: Imaging studies independently reviewed: CT angiogram shows appropriately placed endovascular stent in the brain with no acute hemorrhage Treatments: Headache treatment with fluids, compazine, dexamethasone and IV Benadryl for treatment of migraine. Re-evaluations: 4am pain is completely alleviated inpatient sleeping comfortably Discussion: 63-year-old patient presents with chronic headache history of migraine recent stroke with repair of brain aneurysm. She has not been getting adequate relief and it is unclear what the source of her headache truly is. At this point I think that her migraine headaches have transformed to chronic daily headache and may be exacerbated by recent aneurysm repair and stroke. Currently there is no suggestion of meningitis, intracranial bleed or recurrent aneurysm complication. She does have an appointment with her primary care doctor tomorrow and I have encouraged her to discuss daily medication for prevention of headache and she may benefit from Neurology consultation to discuss her headaches. At this point she is safe for discharge home Discharge Plan Departure Patient Disposition: Home Clinical Impression: Headache Instructions: DI for Headache Activity Restrictions/Additional Instructions: Thank you for coming in today I am sorry that you are continuing to suffer with these significant headaches. I am concerned that there a combination of migraine, post stroke and now transforming into chronic daily headaches. In the emergency department you were given IV fluids, dexamethasone, steroid, IV Benadryl and IV Compazine. Your pain seem to be well controlled. I am hoping that the dose of steroid helps alleviate your pain for at least a couple of days. With her appointment with your primary care doctor later today, please discuss the possibility of daily headache prophylactic medication. This may be quite helpful for you. You may also benefit from Neurology consultation regarding recurrent headaches. If you find that you are getting worse or develop any new symptoms, please feel free to return to the emergency department for further evaluation. Prescriptions: No Action losartan 100 MG tablet 100 mg PO QPM Qty: 0 Spiriva with HandiHaler 18 mcg capsule, w/inhalation device 18 mcg INHALATION DAILY albuterol sulfate 2.5 mg /3 mL (0.083 %) solution for nebulization 2.5 mg INHALATION Q4H PRN (Reason: shortness of breath or wheezing) Qty: 90 0RF Rx Instructions: 3 ml every 2-4 hours in between duoneb breathing treatments as needed ipratropium-albuterol 0.5 mg-3 mg(2.5 mg base)/3 mL solution for nebulization 3 ml INHALATION Q4H PRN (Reason: shortness of breath or wheezing) Qty: 90 0RF albuterol sulfate 0.63 mg/3 mL solution for nebulization 0.63 mg INHALATION QID PRN (Reason: shortness of breath or wheezing) Qty: 75 0RF fluticasone propion-salmeterol 500-50 mcg/dose blister with device 1 puff Inhalation BID montelukast 10 mg tablet 10 mg PO DAILY albuterol sulfate 1.25 mg/3 mL solution for nebulization 2.5 mg inhalation Q4-6H PRN (Reason: shortness of breath or wheezing) Qty: 75 0RF hydrochlorothiazide 25 mg Tablet 25 mg PO QPM prednisone 20 mg Tablet 40 mg PO DAILY Qty: 8 0RF amlodipine [Norvasc] 5 mg Tablet 5 mg PO DAILY Qty: 30 0RF Referrals: Dia Wilson MD [Primary Care Provider] - Stand Alone Forms: Patient Portal/API
[2023-02-27 02:05] VITALS: BP 133/77; PULSE 73
[2023-02-27] MEDS: PROCHLORPERAZINE 10 MG/2 ML VIAL IV (02:05)
[2023-02-27] MEDS: SODIUM CHLORIDE 0.9% 1,000 ML 1000 ML IV (02:05)
[2023-02-27] MEDS: diphenhydrAMINE 50 MG/ML VIAL 25 MG IV (02:06)
[2023-02-27] MEDS: DEXAMETHASONE 10 MG/ML VIAL IV (02:06)
[2023-02-27 02:37] VITALS: BP 132/72; PULSE 62; RESP 18; O2SAT 99
[2023-02-27 04:16] VITALS: BP 132/72; PULSE 76; RESP 18; O2SAT 99
== END 2023-02-27 04:17 | disposition home or self-care (01) ==
PROVIDERS: Emergency Provider Emergency Medicine; PCP Internal Medicine
DX: R51.9 Headache, unspecified (principal)
CPT/HCPCS: 36415; 70496; 96361; 96374; 96375; 99284; J0780; J1100; J1200; Q9967

== ENCOUNTER 2024-11-01 08:58 | Day surgery (SDC) | payer OTHER, SELFPAY ==
[2021-08-03 17:36] VITALS: BMI 27.2
[2024-11-01 12:15] VITALS: BP 145/74; PULSE 87; RESP 16; TEMP 36.2; O2SAT 97; BMI 28.3
[2024-11-01] MEDS: ALBUTEROL/IPRATROPIUM 3 ML AMPUL INH (12:37)
[2024-11-01] MEDS: SODIUM CHLORIDE 0.9% 1,000 ML 42 ML IV (12:37)
--- NOTE | 2024-11-01 12:57 | PM.OP.COLON ---
Operative Date/Time/Diagnoses Date of procedure: 11/01/24 Time of procedure: 13:20 Procedure & Clinicians Surgeon: Tiffani Salvador Procedure Notes Procedure in detail: OPERATIVE / PROCEDURE NOTE Jenni Vidales, 1960, 64,Female,CSN: [id number] 11/01/24 PREOPERATIVE DIAGNOSIS: Screening for colon cancer 12 yrs ago had a NORMAL colon. POSTOPERATIVE DIAGNOSIS: Same + Per the colonoscopy to the cecum: NORMAL colon, next due colonoscopy in 10 years. PROCEDURE DONE: Colonoscopy to the cecum. ANESTHESIA: MAC per Anesthesia. COMPLICATIONS: None. SPECIMENS: None. ESTIMATED BLOOD LOSS: NONE. CONDITION: Stable to the PACU. OPERATIVE DESCRIPTION: After proper informed consent was signed by the patient knowing all the risks, benefits, and potential complications and possible alternatives of the procedure, the patient was appropriately identified. Jenni Vidales underwent a bowel prep that was very efficient yesterday, and the colon was clean. After institution of sedation on her left lateral decubitus position, a rectal exam was performed. Normal rectal and anal tone was found. The Olympus colonoscope was placed into her anus and under direct visualization was advanced from the rectum to the rectosigmoid to the sigmoid to the left colon, splenic flexure, transverse colon, hepatic flexure, ascending colon, and all the way to the cecum. Circumferential visualization of the mucosa was possible. The appendix aperture was noted. The ileocecal valve was noted. No large tumors. No ulcers. No inflammatory bowel disease changes were noted. No diverticulae noted in the sigmoid colon. In the rectum, the scope was retroflexed, and no internal hemorrhoids were noted. The scope was straightened back again. The colon was decompressed, and the scope was retracted out uneventfully. The patient tolerated the procedure well without any complications, was sent to the PACU in stable condition. RECOMMENDATIONS: Continue high-fiber diet - 30-40 gm/day with daily fiber supplementation. Next due colonoscopy in 10 years.
--- NOTE | 2024-11-01 12:59 | P.HP_ITS ---
History of Present Illness History of Present Illness Date Patient Seen: 11/01/24 Time Patient Seen: 13:00 Chief complaint: [facility] Medical History (Updated 11/01/24 @ 13:06 by Tiffani Salvador MD) Chronic migraine Brain aneurysm Hypertension Bronchitis Asthma exacerbation Surgical History H/O tubal ligation Family History Father Hypertension Social History household members: spouse Smoking Status: Never smoker alcohol intake: never Meds Home Medications and Allergies Home Medications Medication Instructions Recorded Confirmed Type losartan 100 mg tablet 100 mg PO QPM ##0 10/27/17 08/03/21 History fluticasone 500 mcg-salmeterol 50 1 puff inhalation BID 10/26/18 08/03/21 History mcg/dose blistr powdr for inhalation montelukast 10 mg tablet 10 mg PO DAILY 10/26/18 08/03/21 History tiotropium bromide 18 mcg capsule 18 mcg inhalation DAILY 08/28/19 08/03/21 History with inhalation device (Spiriva with HandiHaler) albuterol sulfate 2.5 mg/3 mL 2.5 mg (3 mL) inhalation Q4H PRN 05/02/20 11/01/24 Rx (0.083 %) solution for nebulization shortness of breath or wheezing #90 mL ipratropium 0.5 mg-albuterol 3 mg 3 ml inhalation Q4H PRN shortness 05/02/20 08/03/21 Rx (2.5 mg base)/3 mL nebulization of breath or wheezing #90 mL soln albuterol sulfate 1.25 mg/3 mL 2.5 mg (6 mL) inhalation Q4-6H PRN 04/19/21 08/03/21 Rx solution for nebulization shortness of breath or wheezing #75 mL albuterol sulfate 0.63 mg/3 mL 0.63 mg (3 mL) inhalation QID PRN 07/04/21 08/03/21 Rx solution for nebulization shortness of breath or wheezing #75 mL hydrochlorothiazide 25 mg tablet 25 mg PO QPM 08/03/21 08/03/21 History amlodipine 5 mg tablet (Norvasc) 5 mg PO DAILY #30 tabs 08/04/21 11/01/24 Rx prednisone 20 mg tablet 40 mg (2 x 20 mg) PO DAILY #8 tabs 08/04/21 Rx sodium,potassium,mag sulfates 17.5 See Rx Instructions PO .COMPLEX 09/23/24 Rx gram-3.13 gram-1.6 gram oral soln #354 mL (Suprep Bowel Prep Kit) Allergies Allergy/AdvReac Type Severity Reaction Status Date / Time aspirin [ASPIRIN] AdvReac Unknown MAKES HER Verified 11/01/24 12:13 BLEED Review of Systems Review of Systems ROS: Yes All systems reviewed with the patient and are negative except as otherwise documented Exam Vital Signs (past 8 hours): - 11/01/24 12:15 Temperature 97.2 F L Pulse Rate 87 Respiratory Rate 16 Blood Pressure 145/74 H Pulse Oximetry 97 Oxygen Delivery Method Room Air Oxygen Delivery Method Room Air Narrative Exam Narrative: Normal Abdominal exam.. Assessment & Plan Assessment and plan (1) Screening for colon cancer: Problem details: Bowel prep yesterday, and held Eliquis 3 days ago.. Ready for colonoscopy NOW. Status: Acute Time-Based Coding :: [TOTAL MINUTES] spent with patient and on the chart (including review of chart, obtaining history, exam, reviewing outside data, placing orders, documenting exam and treatment plan, and counseling patient) on [DATE].
[2024-11-01 13:26] VITALS: BP 112/67; PULSE 76; RESP 17; TEMP 36.6; O2SAT 97
[2024-11-01 13:31] VITALS: BP 121/66; PULSE 74; RESP 14; O2SAT 97
[2024-11-01 13:36] VITALS: BP 101/48; PULSE 81; RESP 15; O2SAT 94
[2024-11-01 13:45] VITALS: BP 108/58; PULSE 75; RESP 14; TEMP 36.6; O2SAT 98
== END 2024-11-01 14:02 | disposition home or self-care (01) ==
PROVIDERS: PCP Internal Medicine; Referring Provider Surgery; Visit Provider Surgery
PROC: 0DJD8ZZ Inspection of Lower Intestinal Tract, Via Natural or Artificial Opening Endoscopic (ICD-10-PCS; CPT 45378; principal; 2024-11-01 11:15)
DX: Z12.11 Encounter for screening for malignant neoplasm of colon (principal)
CPT/HCPCS: 45378; J2704

== ENCOUNTER 2025-04-16 11:28 | Emergency (ER) | payer OTHER, SELFPAY ==
[2021-08-03 17:36] VITALS: BMI 27.2
[2025-04-16] VITALS (9 sets, daily range): BP systolic 145–195; BP diastolic 64–103; PULSE 54–107; RESP 16–20; TEMP 36.4; O2SAT 88–100; BMI 28.3
--- NOTE | 2025-04-16 11:55 | DI.RAD.S_ITS ---
PROCEDURE: XR SHOULDER RT MIN 2V INDICATIONS: glf TECHNIQUE: 3 views of the shoulder were acquired. COMPARISON: None. FINDINGS: Bones: No acute fractures or dislocations. No suspicious bony lesions. Visualized ribs appear intact. Soft tissues: No suspicious soft tissue calcifications. IMPRESSION: No acute osseous abnormality. If there is continued clinical concern or persistent symptoms, repeat radiographs or cross-sectional imaging (e.g. CT, MRI) may be helpful for further evaluation. Approved by: Abdiaziz Dalton M.D. on 04/16/2025 at 13:41
--- NOTE | 2025-04-16 11:56 | DI.CT.S_ITS ---
PROCEDURE: CT CERVICAL SPINE WO CON INDICATIONS: glf mod trauma TECHNIQUE: Noncontrast 3 mm thick sections acquired from the skull base to the T4 level. Sagittal and coronal reformats were then constructed. For radiation dose reduction, the following was used: automated exposure control, adjustment of mA and/or kV according to patient size. COMPARISON: None. FINDINGS: Image quality: Excellent. Bones: No acute fractures or dislocations. Visualized superior ribs are intact. Mild straightening of the normal cervical lordosis. Mild multilevel degenerative endplate changes. Soft tissues: Prevertebral soft tissues are normal in thickness. No paravertebral hematomas. No apical pneumothoraces. Mild mosaic attenuation in the lung apices, which is nonspecific. Probable intracranial right vertebral artery stent. IMPRESSION: No acute displaced fracture or traumatic subluxation. Approved by: Abdiaziz Dalton M.D. on 04/16/2025 at 13:05
--- NOTE | 2025-04-16 11:56 | DI.CT.S_ITS ---
PROCEDURE: CT CHEST ABD PEL W CON INDICATIONS: glf, mod trauma TECHNIQUE: After the administration of intravenous contrast, 5 mm thick sections acquired from the lung apices to the symphysis. 2.5 mm thick coronal and sagittal reformats were acquired. Additional 7 mm thick coronal maximum intensity projection (MIP) reformats acquired through the lungs. Optional 10-minute delayed imaging may be performed from the kidneys to the bladder. For radiation dose reduction, the following was used: automated exposure control, adjustment of mA and/or kV according to patient size. COMPARISON: [facility], CT, CT ANGIO CHEST ABDOMEN PELVIS, 08/03/2021, 14:08. FINDINGS: Image quality: Diagnostic. CHEST: Lower Neck: No enlarged lymph nodes. Thyroid: No thyroid nodules which require sonographic evaluation. Axillae: No enlarged lymph nodes. Chest Wall: No subcutaneous gas. Focal nodular breast tissue at the lateral aspect of the left breast posterior depth appears unchanged when compared to the CT from 08/03/2021 and is considered benign. Recommend correlation with prior mammograms. Lungs and Pleura: No pulmonary contusions or lacerations. Mild mosaic attenuation in the lungs bilaterally, more prominent in the upper lobes and not significantly changed when compared to the prior exam from 2020. Findings are nonspecific but may be related to air trapping. No pneumothorax or hemothorax. Mediastinum: No mediastinal hematomas. Heart size is normal. No pericardial effusion. Thoracic aorta and pulmonary arteries demonstrate normal size and enhancement. No mediastinal or hilar adenopathy. Esophagus is normal in caliber. No hiatal hernia. ABDOMEN: Liver: No lacerations. Gallbladder: No radiopaque gallstones or wall thickening. Biliary ducts: No biliary dilation. Pancreas: Homogenous enhancement. Spleen: Homogenous enhancement without laceration or hematoma. Adrenal Glands: Symmetric enhancement. Kidneys and Ureters: Symmetric enhancement. No hydronephrosis. No solid mass. No complex renal cystic lesion which requires follow up. Stomach and Bowel: Normal colonic caliber, without significant wall thickening. Normal appendix. Small bowel loops are unremarkable. Peritoneum: No abnormal intraperitoneal fluid. No free air. Ventral Wall: No hernia. Abdominal Nodes: No retroperitoneal or mesenteric adenopathy by size criteria. Vessels: Aorta and inferior vena cava are normal in size. PELVIS: Pelvic Organs: Anteverted uterus. Bladder: Normal thickness. Pelvic Nodes: No enlarged lymph nodes. Miscellaneous: No inguinal hernias are seen. Bones: Pelvic ring and hip joints appear intact. No displaced rib fractures. IMPRESSION: No evidence of traumatic injury to the chest, abdomen or pelvis. Approved by: Abdiaziz Dalton M.D. on 04/16/2025 at 13:35
--- NOTE | 2025-04-16 11:56 | DI.CT.S_ITS ---
PROCEDURE: CT HEAD/BRAIN WO CON INDICATIONS: glf mod trauma TECHNIQUE: Noncontrast 4.5 mm thick angled axial sections acquired from the foramen magnum to the vertex, with coronal and sagittal reformats. For radiation dose reduction, the following was used: automated exposure control, adjustment of mA and/or kV according to patient size. COMPARISON: [facility], CT, CT ANGIO HEAD AND NECK, 11/19/2022, 23:38. FINDINGS: Image quality: Diagnostic. CSF spaces: Basal cisterns are patent. No extra-axial fluid collections. The ventricles are symmetric in size and shape. Brain: No acute intracranial hemorrhage or mass effect. There is minimal cerebral volume loss, with resultant ventricular and sulcal prominence. There are mild periventricular and deep white matter chronic small vessel ischemic changes. There is intracranial internal carotid artery atherosclerosis. Skull and face: Calvarium and visualized facial bones appear intact, without suspicious lesions. Sinuses: Visualized sinuses and mastoids are clear. IMPRESSION: No acute intracranial pathology. Approved by: Abdiaziz Dalton M.D. on 04/16/2025 at 13:02
--- NOTE | 2025-04-16 12:08 | ED.TRAUMA ---
HPI - Trauma General Chief Complaint: Trauma Stated Complaint: fell 5 days ago hurt right side, head pain Time Seen by Provider: 04/16/25 12:03 Mode of arrival: Ambulatory History of Present Illness HPI narrative: 65-year-old female history of brain aneurysm with stenting at [facility] stroke with right-sided persistent paresthesia anxiety hypertension had a ground level fall 5 days ago whereby she tripped over a wire and hit her head against the the door sore presents today with headache, a few bouts of nonbilious nonbloody nausea, vomiting, chest, neck, and back pain, despite taking Tylenol. Patient denies shortness of breath dyspnea on exertion leg pain leg swelling lower bladder incontinence or gait instability or numbness tingling. Other than what is stated 14 point point review of system is negative. Related Data Home Medications ?Medication ?Instructions ?Recorded ?Confirmed losartan 100 mg tablet 100 mg PO QPM ##0 10/27/17 08/03/21 fluticasone 500 mcg-salmeterol 50 1 puff inhalation BID 10/26/18 08/03/21 mcg/dose blistr powdr for inhalation montelukast 10 mg tablet 10 mg PO DAILY 10/26/18 08/03/21 tiotropium bromide 18 mcg capsule 18 mcg inhalation DAILY 08/28/19 08/03/21 with inhalation device (Spiriva with HandiHaler) hydrochlorothiazide 25 mg tablet 25 mg PO QPM 08/03/21 08/03/21 Previous Rx's ?Medication ?Instructions ?Recorded albuterol sulfate 2.5 mg/3 mL 2.5 mg (3 mL) inhalation Q4H PRN 05/02/20 (0.083 %) solution for nebulization shortness of breath or wheezing #90 mL ipratropium 0.5 mg-albuterol 3 mg 3 ml inhalation Q4H PRN shortness 05/02/20 (2.5 mg base)/3 mL nebulization of breath or wheezing #90 mL soln albuterol sulfate 1.25 mg/3 mL 2.5 mg (6 mL) inhalation Q4-6H PRN 04/19/21 solution for nebulization shortness of breath or wheezing #75 mL albuterol sulfate 0.63 mg/3 mL 0.63 mg (3 mL) inhalation QID PRN 07/04/21 solution for nebulization shortness of breath or wheezing #75 mL amlodipine 5 mg tablet (Norvasc) 5 mg PO DAILY #30 tabs 08/04/21 prednisone 20 mg tablet 40 mg (2 x 20 mg) PO DAILY #8 tabs 08/04/21 sodium,potassium,mag sulfates 17.5 See Rx Instructions PO .COMPLEX 09/23/24 gram-3.13 gram-1.6 gram oral soln #354 mL (Suprep Bowel Prep Kit) Allergies Allergy/AdvReac Type Severity Reaction Status Date / Time aspirin (ASPIRIN) AdvReac Unknown MAKES HER Verified 11/01/24 12:13 BLEED Review of Systems Review of Systems ROS Unobtainable: All systems reviewed & are unremarkable except as noted in HPI and below Patient History Medical History (Updated 04/16/25 @ 14:07 by Gokul Carrillo DO) Chronic migraine Brain aneurysm Hypertension Bronchitis Asthma exacerbation Surgical History H/O tubal ligation Family History Father Hypertension Social History household members: spouse Smoking Status: Never smoker alcohol intake: never Smoking Status: Never smoker alcohol intake frequency: holidays/special occasions only Exam Narrative Exam Narrative: GENERAL: [65] year old patient appears stated age. Well-developed patient, in mild distress. HEAD: Atraumatic. Normocephalic. EYES: Pupils equal round and reactive. Extraocular motions intact. No scleral icterus. No injection or drainage. ENT: Nose without bleeding, purulent drainage. Throat without erythema, tonsillar hypertrophy or exudate. Airway patent. NECK: Trachea midline. Tender bilateral paracervical region C4-C7 CARDIOVASCULAR: Regular rate and rhythm without murmurs, gallops, or rubs. Tenderness to palpation T4-T10 anterolaterally R side RESPIRATORY: Clear to auscultation. Breath sounds equal bilaterally. No wheezes, rales, or rhonchi. GASTROINTESTINAL: Abdomen soft, non-tender, nondistended. EXTREMITIES: No edema or joint tenderness. BACK: Nontender without deformity or crepitance. No flank tenderness. NEURO: AOx3. GCS 15 nonfocal neuro exam SKIN: No rash or erythema of visible areas Initial Vital Signs Initial Vital Signs: Vital Signs Temperature 97.6 F 04/16/25 11:41 Pulse Rate 85 04/16/25 11:41 Respiratory Rate 20 04/16/25 11:41 Blood Pressure 193/103 H 04/16/25 11:41 Pulse Oximetry 100 04/16/25 11:41 Oxygen Delivery Method Room Air 04/16/25 11:41 Course Orders Ordered: ED Orders 04/16/25 11:55 XR shoulder RT 2+ views Stat 04/16/25 11:56 CT cervical spine wo con Stat CT chest abd pel w con Stat CT head/brain wo con Stat 04/16/25 12:29 CBC Auto Diff [Complete Blood Count AUTO DIFF] Stat PTT Partial Thromboplastin Vitor Stat 04/16/25 13:12 CMP [Comprehensive Metabolic Panel] Stat Vital Signs Vital signs: Vital Signs - 8 hr 04/16/25 11:41 04/16/25 11:57 04/16/25 11:59 Temperature 97.6 F Pulse Rate 85 107 H 74 Respiratory Rate 20 20 Blood Pressure 193/103 H Pulse Oximetry 100 98 Oxygen Delivery Method Room Air 04/16/25 11:59 04/16/25 12:00 04/16/25 12:00 Temperature Pulse Rate 72 Respiratory Rate 20 Blood Pressure 191/91 H 195/92 H Pulse Oximetry 97 Oxygen Delivery Method 04/16/25 12:40 04/16/25 13:00 Temperature Pulse Rate 54 L 72 Respiratory Rate 20 Blood Pressure 145/78 H Pulse Oximetry 88 L 97 Oxygen Delivery Method Room Air MDM - Trauma Lab Data 04/16/25 12:29 Labs: Lab Results 04/16/25 Range/Units 12:29 WBC 9.5 (4.5-11.0) X10^3/uL RBC 5.29 H (4.0-5.2) X10^6/uL Hgb 15.0 (12.0-16.0) g/dL Hct 45.5 (36-46) % MCV 86.1 (80-100) fL MCH 28.4 (26-34) PG MCHC 33.0 (30-36) % RDW 14.1 (11.6-14.8) % Plt Count 236 (150-400) X10^3/uL Neut % (Auto) 69.6 (50-75) % Lymph % (Auto) 21.7 L (25-40) % Angelina % (Auto) 5.5 (3-14) % Eos % (Auto) 2.7 (2-4) % Baso % (Auto) 0.5 (0-2) % Neut # (Auto) 6600 (6939-6793) /uL Lymph # (Auto) 2100 (5479-2649) /uL Angelina # (Auto) 500 (0-900) /uL Eos # (Auto) 300 (0-450) /uL Baso # (Auto) 100 (0-100) /uL APTT 39 H (25.1-36.5) SECONDS Imaging Data CT scan - head: Radiologist's Impression: [place] [address] CT Scan Report Signed Patient: Jenni Vidales MR#: [id number] : 1960 Acct:[id number] Age/Sex: 65 / F Date of Service: 04/16/25 Loc: ED Accession Number: [id number] Procedure: CT head/brain wo con Ordering Provider: Gokul Carrillo D.O. PROCEDURE: CT HEAD/BRAIN WO CON INDICATIONS: glf mod trauma TECHNIQUE: Noncontrast 4.5 mm thick angled axial sections acquired from the foramen magnum to the vertex, with coronal and sagittal reformats. For radiation dose reduction, the following was used: automated exposure control, adjustment of mA and/or kV according to patient size. COMPARISON: [facility], CT, CT ANGIO HEAD AND NECK, 11/19/2022, 23:38. FINDINGS: Image quality: Diagnostic. CSF spaces: Basal cisterns are patent. No extra-axial fluid collections. The ventricles are symmetric in size and shape. Brain: No acute intracranial hemorrhage or mass effect. There is minimal cerebral volume loss, with resultant ventricular and sulcal prominence. There are mild periventricular and deep white matter chronic small vessel ischemic changes. There is intracranial internal carotid artery atherosclerosis. Skull and face: Calvarium and visualized facial bones appear intact, without suspicious lesions. Sinuses: Visualized sinuses and mastoids are clear. IMPRESSION: No acute intracranial pathology. PROCEDURE: CT CERVICAL SPINE WO CON INDICATIONS: glf mod trauma TECHNIQUE: Noncontrast 3 mm thick sections acquired from the skull base to the T4 level. Sagittal and coronal reformats were then constructed. For radiation dose reduction, the following was used: automated exposure control, adjustment of mA and/or kV according to patient size. COMPARISON: None. FINDINGS: Image quality: Excellent. Bones: No acute fractures or dislocations. Visualized superior ribs are intact. Mild straightening of the normal cervical lordosis. Mild multilevel degenerative endplate changes. Soft tissues: Prevertebral soft tissues are normal in thickness. No paravertebral hematomas. No apical pneumothoraces. Mild mosaic attenuation in the lung apices, which is nonspecific. Probable intracranial right vertebral artery stent. IMPRESSION: No acute displaced fracture or traumatic subluxation. Approved by: Abdiaziz Dalton M.D. on 04/16/2025 at 13:05 CT scan - abdomen/pelvis: Radiologist's Impression: [place] [address] CT Scan Report Signed Patient: Jenni Vidales MR#: [id number] : 1960 Acct:[id number] Age/Sex: 65 / F Date of Service: 04/16/25 Loc: ED Accession Number: [id number] Procedure: CT chest abd pel w con Ordering Provider: Gokul Carrillo D.O. PROCEDURE: CT CHEST ABD PEL W CON INDICATIONS: glf, mod trauma TECHNIQUE: After the administration of intravenous contrast, 5 mm thick sections acquired from the lung apices to the symphysis. 2.5 mm thick coronal and sagittal reformats were acquired. Additional 7 mm thick coronal maximum intensity projection (MIP) reformats acquired through the lungs. Optional 10-minute delayed imaging may be performed from the kidneys to the bladder. For radiation dose reduction, the following was used: automated exposure control, adjustment of mA and/or kV according to patient size. COMPARISON: [facility], CT, CT ANGIO CHEST ABDOMEN PELVIS, 08/03/2021, 14:08. FINDINGS: Image quality: Diagnostic. CHEST: Lower Neck: No enlarged lymph nodes. Thyroid: No thyroid nodules which require sonographic evaluation. Axillae: No enlarged lymph nodes. Chest Wall: No subcutaneous gas. Focal nodular breast tissue at the lateral aspect of the left breast posterior depth appears unchanged when compared to the CT from 08/03/2021 and is considered benign. Recommend correlation with prior mammograms. Lungs and Pleura: No pulmonary contusions or lacerations. Mild mosaic attenuation in the lungs bilaterally, more prominent in the upper lobes and not significantly changed when compared to the prior exam from 2020. Findings are nonspecific but may be related to air trapping. No pneumothorax or hemothorax. Mediastinum: No mediastinal hematomas. Heart size is normal. No pericardial effusion. Thoracic aorta and pulmonary arteries demonstrate normal size and enhancement. No mediastinal or hilar adenopathy. Esophagus is normal in caliber. No hiatal hernia. ABDOMEN: Liver: No lacerations. Gallbladder: No radiopaque gallstones or wall thickening. Biliary ducts: No biliary dilation. Pancreas: Homogenous enhancement. Spleen: Homogenous enhancement without laceration or hematoma. Adrenal Glands: Symmetric enhancement. Kidneys and Ureters: Symmetric enhancement. No hydronephrosis. No solid mass. No complex renal cystic lesion which requires follow up. Stomach and Bowel: Normal colonic caliber, without significant wall thickening. Normal appendix. Small bowel loops are unremarkable. Peritoneum: No abnormal intraperitoneal fluid. No free air. Ventral Wall: No hernia. Abdominal Nodes: No retroperitoneal or mesenteric adenopathy by size criteria. Vessels: Aorta and inferior vena cava are normal in size. PELVIS: Pelvic Organs: Anteverted uterus. Bladder: Normal thickness. Pelvic Nodes: No enlarged lymph nodes. Miscellaneous: No inguinal hernias are seen. Bones: Pelvic ring and hip joints appear intact. No displaced rib fractures. IMPRESSION: No evidence of traumatic injury to the chest, abdomen or pelvis. MDM Narrative Medical decision making narrative: All lab work, vital signs, nurse triage note, medication list, previous ER visits, and all imaging modalities reviewed. CT head cervical chest abdomen and pelvis all showed no acute process. WBC was normal electrolytes were normal GCS 15 nonfocal neuro exam. Differential diagnosis includes pneumothorax subdural hemorrhage liver laceration splenic injury fracture dislocation contusion. DC home to take Tylenol and ibuprofen as needed for pain control Discharge Plan Departure Patient Disposition: Home Clinical Impression: Acute neck pain Headache Qualifiers: Headache type: tension-type Headache chronicity pattern: acute headache Intractability: intractable Qualified Code(s): G44.201 - Tension-type headache, unspecified, intractable Chest wall contusion Qualifiers: Encounter type: initial encounter Laterality: right Qualified Code(s): S20.211A - Contusion of right front wall of thorax, initial encounter Prescriptions: No Action losartan 100 MG tablet 100 mg PO QPM Qty: 0 sodium,potassium,mag sulfates [Suprep Bowel Prep Kit] 17.5-3.13-1.6 gram recon soln See Rx Instructions PO .COMPLEX Qty: 354 0RF Rx Instructions: take as directed by Physician Vivian with HandiHaler 18 mcg capsule, w/inhalation device 18 mcg INHALATION DAILY albuterol sulfate 2.5 mg /3 mL (0.083 %) solution for nebulization 2.5 mg INHALATION Q4H PRN (Reason: shortness of breath or wheezing) Qty: 90 0RF Rx Instructions: 3 ml every 2-4 hours in between duoneb breathing treatments as needed ipratropium-albuterol 0.5 mg-3 mg(2.5 mg base)/3 mL solution for nebulization 3 ml INHALATION Q4H PRN (Reason: shortness of breath or wheezing) Qty: 90 0RF albuterol sulfate 0.63 mg/3 mL solution for nebulization 0.63 mg INHALATION QID PRN (Reason: shortness of breath or wheezing) Qty: 75 0RF fluticasone propion-salmeterol 500-50 mcg/dose blister with device 1 puff Inhalation BID montelukast 10 mg tablet 10 mg PO DAILY albuterol sulfate 1.25 mg/3 mL solution for nebulization 2.5 mg inhalation Q4-6H PRN (Reason: shortness of breath or wheezing) Qty: 75 0RF hydrochlorothiazide 25 mg Tablet 25 mg PO QPM prednisone 20 mg Tablet 40 mg PO DAILY Qty: 8 0RF amlodipine [Norvasc] 5 mg Tablet 5 mg PO DAILY Qty: 30 0RF Referrals: Dia Wilson MD [Primary Care Provider, Internal Medicine] Stand Alone Forms: Patient Portal/API
[2025-04-16 12:33] LABS: Add Manual Diff / Slide Review NO; Basophils Absolute Auto 100 /uL (0-100); Basophils Percent Auto 0.5 % (0-2); Eosinophils Absolute Auto 300 /uL (0-450); Eosinophils Percent Auto 2.7 % (2-4); Hematocrit 45.5 % (36-46); Lymphocytes Absolute Auto 2100 /uL (1100-4500); Lymphocytes Percent Auto 21.7 % (25-40); Mean Corpuscular Hemoglobin 28.4 PG (26-34); Mean Corpuscular Volume 86.1 fL (80-100); Monocytes Absolute Auto 500 /uL (0-900); Monocytes Percent Auto 5.5 % (3-14); Neutrophils Absolute Auto 6600 /uL (1500-7000); Neutrophils Percent Auto 69.6 % (50-75); Platelet Count 236 X10^3/uL (150-400); Red Blood Cell Count 5.29 X10^6/uL (4.0-5.2); Red Cell Distribution Width 14.1 % (11.6-14.8); White Blood Cell Count 9.5 X10^3/uL (4.5-11.0)
--- NOTE | 2025-04-16 12:36 | PC.NURSE ---
Pt arrives POV to ER, C collar placed in triage. ambulatory to room. Appears in NAD. States that she has a MRAC 01/06.
[2025-04-16 12:54] LABS: PTT Partial Thromboplastin Tim 39 SECONDS (25.1-36.5)
--- NOTE | 2025-04-16 13:22 | PC.NURSE ---
C Spine cleared by . Ramona collar removed.
[2025-04-16 13:52] LABS: Alanine Aminotransferase 17 IU/L (<35); Albumin 4.5 g/dL (3.5-5.0); Albumin Globulin Ratio 1.4 (1.0-2.8); Alkaline Phosphatase 104 U/L (38-126); Aspartate Aminotransferase 47 IU/L (14-36); BUN Creatinine Ratio 23.9 (6-22); Bilirubin Total 0.7 mg/dL (0.2-1.3); Blood Urea Nitrogen 22 mg/dL (7-17); Calcium 9.4 mg/dL (8.4-10.2); Carbon Dioxide 23 mmol/L (22-32); Chloride 105 mmol/L (98-107); Estimated Glomerular Filt Rate > 60 mL/min (>60); Globulin 3.2 g/dL (1.7-4.1); Glucose 97 mg/dL (70-99); HEMOLYSIS 24 (0-50); Potassium 4.8 mmol/L (3.4-5.1); Sodium 138 mmol/L (137-145); Total Protein 7.7 g/dL (6.3-8.2)
== END 2025-04-16 14:18 | disposition home or self-care (01) ==
PROVIDERS: Emergency Provider Family Medicine; PCP Internal Medicine
DX: G44.201 Tension-type headache, unspecified, intractable (principal); S20.211A Contusion of right front wall of thorax, initial encounter; M54.2 Cervicalgia; R11.2 Nausea with vomiting, unspecified; S09.90XA Unspecified injury of head, initial encounter; W01.198A Fall on same level from slipping, tripping and stumbling with subsequent striking against other object, initial encounter; Z79.01 Long term (current) use of anticoagulants
CPT/HCPCS: 36415; 70450; 71260; 72125; 73030; 74177; 80053; 85025; 85730; 99283; 99284; Q9967